=== PATIENT | female | born 1960 | race Caucasian/White ===

== ENCOUNTER → 2016-05-11 | Outpatient (REF) | payer OTHER ==
[~2016-05-11] MED LIST: ASPI1TAB PO; ATOR1TAB19 PO; ATOR1TAB21 PO; B-122500 PO; CARV12.5 PO; COUM2TAB10 PO; ERGO5000 PO; HYDR-3565 PO; HYDR1TAB97 PO; LEVO137T2 PO; LISI10TA4 PO; MOME50SP; PANT40TA2 PO; SKEL-29 PO; SUCR1TAB56 PO; VITAMIN B12
[2016-05-11 17:45] LABS: BASO # 0.1 K/mm3 (0.0-0.2); BASO % 1.2 % (0.0-1.0); EOS # 0.3 K/mm3 (0.0-0.50); EOS % 5.4 % (0.0-3.0); LARGE UNSTAINED CELL # 0.1 K/mm3 (0.0-0.4); LARGE UNSTAINED CELL % 2.4 % (0.0-4.0); LYMPH # 1.7 K/mm3 (1.5-4.5); LYMPH % 31.2 % (24.0-44.0); MEAN CORPUSCULAR HEMOGLOBIN 29.3 pg (27.0-33.0); MEAN CORPUSCULAR HGB CONC 33.3 g/dl (32.0-36.5); MONO # 0.3 K/mm3 (0.0-0.8); MONO % 6.2 % (0.0-5.0); NEUTROPHILS # 2.9 K/mm3 (1.8-7.7); NEUTROPHILS % 53.7 % (36.0-66.0); PLATELET COUNT, AUTOMATED 243 k/mm3 (150-450); RED CELL DISTRIBUTION WIDTH 13.6 % (11.5-14.5); WHITE BLOOD COUNT 5.3 K/mm3 (4.0-10.0)
[2016-05-11 19:59] LABS: ERYTHROCYTE SEDIMENTATION RATE 27 mm/hr (0-30)
== END ==
LOC: M SFHCPLAZ 15:02
PROVIDERS: ATTEND Physician Assistant Medical
DX: Z79.01 Long term (current) use of anticoagulants (principal)

== ENCOUNTER → 2016-05-28 | Outpatient (REF) | payer OTHER ==
[~2016-05-28] MED LIST changes: -ERGO5000 PO; +ERGO500014 PO; -HYDR-3565 PO; +HYDR-3713 PO; +HYDR-3719 PO; -HYDR1TAB97 PO
[2016-05-28 12:17] LABS: INR 2.34
[2016-05-28 12:36] LABS: FREE T4 1.28 NG/DL (0.76-1.46)
== END ==
LOC: M SFHCPLAZ 08:16
PROVIDERS: ATTEND Family Medicine
DX: Z86.711 Personal history of pulmonary embolism (principal); R73.01 Impaired fasting glucose

== ENCOUNTER 2016-06-12 13:14 | Emergency (ER) | payer OTHER ==
[2016-06-12] MEDS ORDERED: ALBUTEROL SULFATE 2.5 MG/0.5 ML INH NEB SOLN As Ordered ONE (13:49)
[2016-06-12] MEDS ORDERED: IPRATROPIUM 0.5MG/ALBUTEROL 2.5MG INH SOL UD 3ML (DUONEB)(J7620) As Ordered ONE (13:49)
[2016-06-12 14:27] LABS: BASO # 0.1 K/mm3 (0.0-0.2); EOS # 0.3 K/mm3 (0.0-0.50); EOS % 3.3 % (0.0-3.0); LARGE UNSTAINED CELL # 0.1 K/mm3 (0.0-0.4); LARGE UNSTAINED CELL % 1.7 % (0.0-4.0); LYMPH # 1.2 K/mm3 (1.5-4.5); LYMPH % 14.8 % (24.0-44.0); MEAN CORPUSCULAR HEMOGLOBIN 27.9 pg (27.0-33.0); MEAN CORPUSCULAR HGB CONC 32.8 g/dl (32.0-36.5); MEAN CORPUSCULAR VOLUME 85.1 fl (80.0-96.0); MONO # 0.4 K/mm3 (0.0-0.8); MONO % 5.1 % (0.0-5.0); NEUTROPHILS # 5.8 K/mm3 (1.8-7.7); PLATELET COUNT, AUTOMATED 229 k/mm3 (150-450); RED CELL DISTRIBUTION WIDTH 13.5 % (11.5-14.5); WHITE BLOOD COUNT 7.8 K/mm3 (4.0-10.0)
[2016-06-12 14:29] LABS: INR 2.25
[2016-06-12 14:55] LABS: ANION GAP 6 MEQ/L (8-16); BLOOD UREA NITROGEN 7 MG/DL (7-18); CALCIUM LEVEL 8.6 MG/DL (8.5-10.1); CARBON DIOXIDE LEVEL 31 MEQ/L (21-32); CHLORIDE LEVEL 106 MEQ/L (98-107); CREATININE FOR GFR 0.82 MG/DL (0.55-1.02); GLOMERULAR FILTRATION RATE > 60.0 (>51); GLUCOSE, FASTING 94 MG/DL (70-105); SODIUM LEVEL 143 MEQ/L (136-145)
[2016-06-12] MEDS ORDERED: methylPREDNISolone INJ 125 MG/2 ML VIAL (J2930) As Ordered ONE (15:17)
[2016-06-12] MEDS ORDERED: ISOVUE-370 76% 100ML VIAL (Q9967) As Ordered ONE (15:41)
[2016-06-12] MEDS ORDERED: AZITHROMYCIN 250 MG TAB As Ordered ONE (17:12)
[2016-06-12] MEDS ORDERED: ALBUTEROL 90 MCG/ACT 8GM HFA INHALER As Ordered ONE (17:15)
--- NOTE | 2016-06-12 17:26 | EDDOCDS ---
Physician Documentation [facility] Name: Danni Dee Age: 56 yrs Sex: Female : 1960 Arrival Date: 06/12/2016 Time: 13:14 Bed 5 Private MD: Cedrick Solares Disposition: 06/12/16 17:05 Discharged to Home/Self Care. Impression: Dyspnea, Acute bronchitis. - Condition is Stable. - Discharge Instructions: Acute Bronchitis, Shortness of Breath. - Prescriptions for Prednisone 20 mg Oral Tablet - take 3 tablet by ORAL route once daily for 5 days; 15 tablet. Zithromax Z- Joel 250 mg Oral Tablet - take 1 tablet by ORAL route as directed for 5 days Day 1- take two tablets once. Day 2, 3, 4 , 5 take one tablet once daily.; 6 tablet. Albuterol Sulfate 90 mcg/actuation Inhalation HFA Aerosol Inhaler - inhale 2 puff by INHALATION route every 4 hours As needed; 1 Inhaler. - Medication Reconciliation, Local Pharmacy Hours form. - Follow up: Cedrick Solares MD; When: 2 - 3 days. - Problem is new. - Symptoms have improved. - Notes: follow up w dr solares. your coumadin might need adjustment. return if worsening symptoms Historical: - Allergies: no known allergies; - Home Meds: 1. atorvastatin 20 mg oral tab 1 tab once daily 2. carvedilol 12.5 mg oral tab 1 tab 2 times per day 3. hydrocodone-acetaminophen 10-325 mg Oral tab 1 tab every 4 hours as needed 4. levothyroxine 137 mcg Oral cap 1 cap once daily 5. lisinopril 10 mg Oral tab 1 tab once daily 6. metaxalone 800 mg oral tab 1 tab 3 times per day 7. mometasone 50 mcg/actuation nasal spry 2 sprays once daily 8. Protonix 40 mg Oral TbEC 1 tab 2 times per day 9. sucralfate 1 gram Oral tab daily 10. Vitamin B-12 2,000 mcg Oral TbER daily 11. Vitamin D Oral 24020 unit weekly 12. warfarin 4 mg oral tab once daily 13. Pseudoephedrine Unknown Oral every 12 hours - PMHx: gastroperesis; Hypercholesterolemia; Hypertension; Hypothyroidism; PE; - PSHx: Cervical Fusion; Laminectomy. lumbar; left shoulder; Hysterectomy; Cholecystectomy; Tubal ligation; - Social history: Smoking status: Patient states former smoker of tobacco. No barriers to communication noted, The patient speaks fluent Italian, Speaks appropriately for age. - Family history: Not pertinent. - : The pt / caregiver states he / she is on anticoagulants: coumadin. Home medication list is obtained from the patient. - Exposure Risk Screening:: None identified. 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 6 in. (167.64 cm); 14:58 BP 141 / 60 (auto/); ttb 14:58 Pulse 72 MON; Resp 18 S; Pulse Ox 95% on R/A; ttb 17:15 BP 153 / 72 (auto/); ttb 17:15 Pulse 84 MON; Resp 18 S; Pulse Ox 95% ; ttb 13:15 Body Mass Index 37.12 (104.33 kg, 167.64 cm) dem1 MDM: 13:42 IV Saline Lock ordered. ml 13:42 Net Application Support Specialist/Pulse Ox/q 15 min VS ordered. ml 13:42 Rhythm Strip to chart ordered. ml 13:42 Albuterol 5 mg Nebulizer once ordered. ml 13:42 Albuterol-Ipratropium 3 ml Inhalation once ordered. ml 13:42 Call Respiratory ordered. ml 13:42 Obtain sample by nasopharyngeal swab ordered. ml 13:42 Strep Screen, Nursing ordered. ml 13:43 CBC with Diff Ordered. EDMS 13:43 MED Profile Ordered. EDMS 13:43 CIP Ordered. EDMS 13:43 Troponin Ordered. EDMS 13:43 -Influenza A&B Rapid Antigen - Nose Ordered. EDMS 13:44 Chest, 1 View Ordered. EDMS 13:44 ECG WITH READING ER PHYS+CARDIAG ordered. EDMS 13:47 Call Respiratory complete. deg 13:57 PT/INR Ordered. EDMS 13:57 PTT Ordered. EDMS 14:20 Financial registration complete. mm15 14:29 [facility] Payment Agreement was scanned into AMDL and attached to record. mm15 14:46 CBC with Diff Reviewed. ml 14:46 PT/INR Reviewed. ml 14:46 PTT Reviewed. ml 14:46 -Influenza A&B Rapid Antigen - Nose Reviewed. ml 15:07 MED Profile Reviewed. ml 15:07 CIP Reviewed. ml 15:07 Troponin Reviewed. ml 15:13 Solu-MEDROL 125 mg IVP once ordered. ml 15:14 CT Chest Angio R/O PE Ordered. EDMS 16:32 GATS (NEGATIVE STREP SCREEN) Ordered. EDMS 17:04 azithromycin 500 mg PO once ordered. ml 17:04 Ventolin Inhaler 2 puffs Inhalation once; inhaler to go ordered. ml Administered Medications: 13:53 Drug: Albuterol 5 mg [albuterol sulfate 2.5 mg/0.5 mL solution for nebulization (1 mL)] js11 Route: Nebulizer; 13:53 Drug: Albuterol-Ipratropium 3 ml [ipratropium-albuterol 0.5 mg-3 mg(2.5 mg base)/3 mL js11 nebulization soln (3 mL)] Route: Inhalation; 15:23 Drug: Solu-MEDROL 125 mg [Solu-Medrol 500 mg intravenous solution (125 mg)] Route: IVP; ttb Site: left antecubital; 17:17 Drug: azithromycin 500 mg [azithromycin 250 mg tablet (2 tabs)] Route: PO; hs1 17:20 Drug: Ventolin 2 puffs [Ventolin HFA 90 mcg/actuation aerosol inhaler (2 puffs)] Route: js11 Inhalation; Signatures: Dispatcher [employer] EDTN LenardDee Vallejo MD MD ml Nette Hensley, Respiratory Therapy Manager Unit deg Jani Lackey RN RN mlb1 Denisse Escalante RN RN hs1 Eneida Urena mm15 Kojo Ames js11 Misti Zamorano RN ttb The chart was reviewed and I authenticate all verbal orders and agree with the evaluation and treatment provided.Attachments: 14:29 [facility] Payment Agreement mm15 MTDD
--- NOTE | 2016-06-12 17:26 | EDDOCDS ---
Nurse's Notes [facility] Name: Danni Dee Age: 56 yrs Sex: Female : 1960 Arrival Date: 06/12/2016 Time: 13:14 Bed 5 Private MD: Cedrick Solares Diagnosis: Dyspnea;Acute bronchitis Presentation: 06/12 13:18 Presenting complaint: Patient states: Chest tightness and increased SOB since last mlb1 night. Adult Sepsis Screening: The patient does not have new or worsening altered mentation. Patient's respiratory rate is less than 22. Systolic blood pressure is greater than 100. Patient has a qSOFA score of 0- Negative Sepsis Screen. Suicide/Homicide risk assessment- the patient denies having any suicidal and/or homicidal ideations and does not present with any other emotional, behavioral or mental health complaints. Status: Patient is not a coordinator volunteer services or dependent. Transition of care: patient was not received from another setting of care. 13:18 Method Of Arrival: Walkin/Carried/Asstd mlb1 13:18 Acuity: JAYDE Level 2 mlb1 Triage Assessment: 13:21 General: Appears in no apparent distress, Behavior is appropriate for age, cooperative. mlb1 Pain: Location: chest Pain currently is 4 out of 10 on a pain scale. Pain: Quality of pain is described as tightness. Pt Declines HIV testing. EENT: Reports sore throat. Respiratory: Reports shortness of breath. 17:25 Respiratory: Onset: The symptoms/episode began/occurred gradually. 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 atorvastatin 20 mg oral tab 1 tab once daily 2. carvedilol 12.5 mg oral tab 1 tab 2 times per day 3. hydrocodone-acetaminophen 10-325 mg Oral tab 1 tab every 4 hours as needed 4. levothyroxine 137 mcg Oral cap 1 cap once daily 5. lisinopril 10 mg Oral tab 1 tab once daily 6. metaxalone 800 mg oral tab 1 tab 3 times per day 7. mometasone 50 mcg/actuation nasal spry 2 sprays once daily 8. Protonix 40 mg Oral TbEC 1 tab 2 times per day 9. sucralfate 1 gram Oral tab daily 10. Vitamin B-12 2,000 mcg Oral TbER daily 11. Vitamin D Oral 59471 unit weekly 12. warfarin 4 mg oral tab once daily 13. Pseudoephedrine Unknown Oral every 12 hours - PMHx: gastroperesis; Hypercholesterolemia; Hypertension; Hypothyroidism; PE; - PSHx: Cervical Fusion; Laminectomy. lumbar; left shoulder; Hysterectomy; Cholecystectomy; Tubal ligation; - Social history: Smoking status: Patient states former smoker of tobacco. No barriers to communication noted, The patient speaks fluent Latvian, Speaks appropriately for age. - Family history: Not pertinent. - : The pt / caregiver states he / she is on anticoagulants: coumadin. Home medication list is obtained from the patient. - Exposure Risk Screening:: None identified. Screenin:06 Screening information is obtained from the patient. Fall risk: No risks identified. hs1 Assistance ADL's: requires no assistance with activities of daily living. Abuse/DV Screen: The patient / caregiver reports he/she is: not in a situation that causes fear, pain or injury. Nutritional screening: No deficits noted. Advance Directives: There is no active DNR order. home support is adequate. Assessment: 14:05 General: Appears in no apparent distress, Behavior is appropriate for age, cooperative. hs1 EENT: Reports nasal congestion nasal discharge. Cardiovascular: Capillary refill < 3 seconds Rhythm is sinus rhythm No ectopy. Cardiovascular: Edema is absent. Chest pain is denied. Respiratory: Airway is patent Respiratory effort is even, unlabored, Breath sounds are diminished bilaterally. Derm: Skin is pink, warm & dry. normal. 15:15 Adult Sepsis Screening: The patient does not have new or worsening altered mentation. ttb Patient's respiratory rate is less than 22. Systolic blood pressure is greater than 100. Patient has a qSOFA score of 0- Negative Sepsis Screen. 15:23 General: Appears in no apparent distress, well nourished, well groomed, Behavior is ttb appropriate for age, cooperative, pleasant. Neurological: Level of Consciousness is awake, alert, Oriented to person, place, time, Moves all extremities. Speech is normal, Facial symmetry appears normal. Cardiovascular: Chest pain is denied. Respiratory: Airway is patent Respiratory effort is even, unlabored, Sputum is thick, green Reports cough that is productive. Derm: Skin is normal. 17:18 General: Appears in no apparent distress. Neurological: No deficits noted. Respiratory: hs1 No deficits noted. Respiratory: Airway is patent Respiratory effort is even, unlabored, Reports no respiratory complaints. Derm: Skin is pink, warm & dry. normal. Vital Signs: 13:15 BP 173 / 74; Pulse 85; Resp 20; Temp 97.9(T); Pulse Ox 100% on R/A; Weight 104.33 kg; dem1 Height 5 ft. 6 in. (167.64 cm); 14:58 BP 141 / 60 (auto/); ttb 14:58 Pulse 72 MON; Resp 18 S; Pulse Ox 95% on R/A; ttb 17:15 BP 153 / 72 (auto/); ttb 17:15 Pulse 84 MON; Resp 18 S; Pulse Ox 95% ; ttb 13:15 Body Mass Index 37.12 (104.33 kg, 167.64 cm) [facility] Vitals: 13:15 Log In Time: June 12, 2016 at 13:13. [facility] 13:15 RN notified that patient meets Red Flag criteria. [facility] 16:32 Strep Screen is obtained and tested: Negative, a GATSNEG culture is ordered in [place] [id number] and sent. ED Course: 13:15 Patient visited by Leola Cooper. dem1 13:15 Cedrick Solares MD is Private Physician. dem1 13:15 Patient moved to Waiting [facility] 13:18 Patient visited by Jani Lackey RN. mlb1 13:18 Patient moved to Pre RCE [facility] 13:18 Triage Initiated mlb1 13:24 Denisse Escalante, HELEN is Primary Nurse. mlb1 13:24 Patient moved to mlb1 13:30 Dee Morrow MD is Attending Physician. ml 13:30 Patient visited by Dee Morrow MD. ml 13:50 Inserted saline lock: 20 gauge in left antecubital area and blood collected. The hs1 patient tolerated the procedure well. 14:05 Patient visited by Denisse Escalante RN. 1 14:18 EKG done. (by ED staff). Reviewed by Dee Morrow MD. jrd 14:19 Patient visited by Yeison Vazquez PCA. jrd 14:24 The patient / caregiver is instructed regarding the plan of care and ED course. hs1 14:29 [facility] Payment Agreement was scanned into [employer] and attached to record. mm15 15:26 Patient visited by Misti Zamorano RN. ttb 16:31 Patient visited by Denisse Escalante RN. hs1 17:02 Patient visited by Denisse Escalante RN. hs1 17:05 Cedrick Solares MD is Referral Physician. ml 17:21 Discontinued IV lock intact, bleeding controlled, pressure dressing applied, No hs1 redness/swelling at site. No procedures done that require assistance. 17:26 Patient visited by Misti Zamorano RN. ttb Administered Medications: 13:53 Drug: Albuterol 5 mg [albuterol sulfate 2.5 mg/0.5 mL solution for nebulization (1 mL)] js11 Route: Nebulizer; 13:53 Drug: Albuterol-Ipratropium 3 ml [ipratropium-albuterol 0.5 mg-3 mg(2.5 mg base)/3 mL js11 nebulization soln (3 mL)] Route: Inhalation; 15:23 Drug: Solu-MEDROL 125 mg [Solu-Medrol 500 mg intravenous solution (125 mg)] Route: IVP; ttb Site: left antecubital; 17:17 Drug: azithromycin 500 mg [azithromycin 250 mg tablet (2 tabs)] Route: PO; hs1 17:20 Drug: Ventolin 2 puffs [Ventolin HFA 90 mcg/actuation aerosol inhaler (2 puffs)] Route: js11 Inhalation; RT: 13:53 Initial Med Neb Given as ordered Patient was instructed and evaluated on procedure js11 Patient tolerated procedure well without adverse effect. Oxygen is room air. Respiratory: Breath sounds are diminished bilaterally. 17:20 Initial MDI Given. Patient was instructed and evaluated on procedure Patient tolerated js11 procedure well without adverse effect Spacer used Number of puffs given: 2. Order Results: Lab Order: CBC with Diff; SPEC'M 06/12/16 14:00 Test: WHITE BLOOD COUNT; Value: 7.8; Range: 4.0-10.0; Units: K/mm3; Status: F Test: RED BLOOD COUNT; Value: 4.48; Range: 4.00-5.40; Units: M/mm3; Status: F Test: HEMOGLOBIN; Value: 12.5; Range: 12.0-16.0; Units: g/dl; Status: F Test: HEMATOCRIT; Value: 38.1; Range: 36.0-47.0; Units: %; Status: F Test: MEAN CORPUSCULAR VOLUME; Value: 85.1; Range: 80.0-96.0; Units: fl; Status: F Test: MEAN CORPUSCULAR HEMOGLOBIN; Value: 27.9; Range: 27.0-33.0; Units: pg; Status: F Test: MEAN CORPUSCULAR HGB CONC; Value: 32.8; Range: 32.0-36.5; Units: g/dl; Status: F Test: RED CELL DISTRIBUTION WIDTH; Value: 13.5; Range: 11.5-14.5; Units: %; Status: F Test: PLATELET COUNT, AUTOMATED; Value: 229; Range: 150-450; Units: k/mm3; Status: F Test: NEUTROPHILS %; Value: 74.0; Range: 36.0-66.0; Abnormal: Above high normal; Units: %; Status: F Test: LYMPH %; Value: 14.8; Range: 24.0-44.0; Abnormal: Below low normal; Units: %; Status: F Test: MONO %; Value: 5.1; Range: 0.0-5.0; Abnormal: Above high normal; Units: %; Status: F Test: EOS %; Value: 3.3; Range: 0.0-3.0; Abnormal: Above high normal; Units: %; Status: F Test: BASO %; Value: 1.0; Range: 0.0-1.0; Units: %; Status: F Test: LARGE UNSTAINED CELL %; Value: 1.7; Range: 0.0-4.0; Units: %; Status: F Test: NEUTROPHILS #; Value: 5.8; Range: 1.8-7.7; Units: K/mm3; Status: F Test: LYMPH #; Value: 1.2; Range: 1.5-4.5; Abnormal: Below low normal; Units: K/mm3; Status: F Test: MONO #; Value: 0.4; Range: 0.0-0.8; Units: K/mm3; Status: F Test: EOS #; Value: 0.3; Range: 0.0-0.50; Units: K/mm3; Status: F Test: BASO #; Value: 0.1; Range: 0.0-0.2; Units: K/mm3; Status: F Test: LARGE UNSTAINED CELL #; Value: 0.1; Range: 0.0-0.4; Units: K/mm3; Status: F Lab Order: MED Profile; SPEC' 06/12/16 14:00 Test: GLUCOSE, FASTING; Value: 94; Range: 70-105; Units: MG/DL; Status: F Test: BLOOD UREA NITROGEN; Value: 7; Range: 7-18; Units: MG/DL; Status: F Test: CREATININE FOR GFR; Value: 0.82; Range: 0.55-1.02; Units: MG/DL; Status: F Test: GLOMERULAR FILTRATION RATE; Value: > 60.0; Range: >51; Status: F Test: SODIUM LEVEL; Value: 143; Range: 136-145; Units: MEQ/L; Status: F Test: POTASSIUM SERUM; Value: 4.0; Range: 3.5-5.1; Units: MEQ/L; Status: F Test: CHLORIDE LEVEL; Value: 106; Range: 98-107; Units: MEQ/L; Status: F Test: CARBON DIOXIDE LEVEL; Value: 31; Range: 21-32; Units: MEQ/L; Status: F Test: ANION GAP; Value: 6; Range: 8-16; Abnormal: Below low normal; Units: MEQ/L; Status: F Test: CALCIUM LEVEL; Value: 8.6; Range: 8.5-10.1; Units: MG/DL; Status: F Test Note: ; Units are mL/min/1.73 m2 Chronic Kidney Disease Staging per NKF: Stage I & II GFR >=60 Normal to Mildly Decreased Stage III GFR 30-59 Moderately Decreased Stage IV GFR 15-29 Severely Decreased Stage V GFR <15 Very Little GFR Left ESRD GFR <15 on CASH PROCESSING SPECIALIST Lab Order: [facility]; SPEC06/12/16 14:00 Test: CPK CREATINE PHOSPHOKINASE; Value: 65; Range: 26-192; Units: U/L; Status: F Test: CK-MB VALUE MASS; Value: 1.5; Range: 0.0-3.6; Units: NG/ML; Status: F Test: MB/CK RELATIVE INDEX; Value: 2.30; Range: < OR =4; Status: F Test Note: ; DIAGNOSIS CRITERIA MMB ng/ml Relative Index (RI) NON-AMI < or = 5 N/A RAMOS ZONE > 5 < or = 4 AMI > 5 > 4 Lab Order: Troponin; SPEC'M 06/12/16 14:00 Test: TROPONIN I; Value: < 0.02; Range: < 0.10; Units: NG/ML; Status: F Test Note: ; Troponin I Reference Interval for Siemens Octavian LOCI: 99th Percentile= 0.00-0.045 ng/ml Risk Stratification: <= 0.10 ng/ml Decreased Risk for Adverse Clinical Events. 0.10-1.50 ng/ml Increased Risk for Adverse Clinical Events. Evaluation of additional criterion and/or repeat testing in 2-6 hours is suggested to rule out myocardial damage. >= 1.50 ng/ml Indicative of Myocardial Injury. Lab Order: -Influenza A&B Rapid Antigen - Nose; SPEC'M 06/12/16 14:00 Test: INFLUENZA A RAPID SCR by ICA; Value: INFLUENZA A RESULTS NEGATIVE; Status: F Test: INFLUENZA A RAPID SCR by ICA; Value: Comments:; Status: F Test: INFLUENZA B RAPID SCR by ICA; Value: INFLUENZA B RESULTS NEGATIVE; Status: F Test Note: ; The Influenza test is a direct rapid immunoassay for the qualitative detection of Influenza viral antigen. Cell culture (Viral Culture) testing should be considered to confirm NEGATIVE results and to assist in detecting other viruses that can provide similar clinical symptoms. Please contact the lab within 24 hours ([phone] if confirmatory testing is desired. Lab Order: PT/INR; SPEC'M 06/12/16 14:07 Test: PROTHROMBIN TIME; Value: 24.9; Range: 12.3-14.5; Abnormal: Above high normal; Units: SECONDS; Status: F Test: INR; Value: 2.25; Status: F Test Note: ; THERAPUTIC HUMAN INR VALUES INDICATIONS NORMAL RANGES PROPHYLAXIS/TREATMENT OF: VENOUS THROMBOSIS 2.0-3.0 PULMONARY EMBOLISM 2.0-3.0 PREVENTION OF SYSTEMIC EMBOLISM FROM: TISSUE HEART VALVES 2.0-3.0 ACUTE MYOCARDIAL INFARCTION 2.0-3.0 VALVULAR HEART DISEASE 2.0-3.0 ATRIAL FIBRILLATION 2.0-3.0 MECHANICAL VALVES(HIGH RISK) 2.5-3.5 RECURRENT MYOCARDIAL INFARCTION 2.5-3.5 Lab Order: PTT; JHONNY 06/12/16 14:07 Test: PARTIAL THROMBOPLASTIN TIME; Value: 38.6; Range: 26.6-37.1; Abnormal: Above high normal; Units: SECONDS; Status: F Outcome: 17:05 Discharge ordered by Provider. 17:20 Discharge Assessment: Patient awake, alert and oriented x 3. No cognitive and/or hs1 functional deficits noted. Patient verbalized understanding of disposition instructions. patient administered narcotics - no. The following High Risk Discharge criteria are identified: None. Discharged to home ambulatory. Condition: stable. Discharge instructions given to patient, Instructed on discharge instructions, follow up and referral plans. medication usage, Demonstrated understanding of instructions, medications, Pt was receptive of discharge instructions/ teaching. Prescriptions given X 2. CT Study completed. Property sent home with patient. 17:26 Patient left the ED. hs1 Signatures: Dee Morrow MD MD ml Jani Lackey RN RN mlb1 Denisse Escalante RN RN hs1 Kojo Ames js11 Leola Cooper1 Misti Zamorano, HELEN RN Eneida Daniel mm15 Yeison Vazquez PCA PCA jrsharon Corrections: (The following items were deleted from the chart) 13:23 13:18 Presenting complaint: Patient states: SOB increased since last night mlb1 mlb1 13:23 13:18 Acuity: JAYDE Level 3 mlb1 mlb1 MTDD
--- NOTE | 2016-06-13 06:32 | ECGEPIP ---
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
--- NOTE | 2016-06-13 07:55 | REP ---
AP PORTABLE CHEST: 06/12/2016. Comparison: 04/14/2016. Clinical history: Dyspnea. Lung cuellar are better inflated than on the previous study. Improvement of the bibasilar atelectatic or infiltrative change, left greater than right since the prior study. The CP angles were sharply defined. Heart has left ventricular configuration. The aorta is mildly tortuous but normal for age and unchanged. Airway intact. Dorsal column stimulator leads in the mid thoracic region. Cervical plate and screw fusion devices from discectomy anteriorly and posterior fusion screws and arch bars noted. Impression: 1. Much improved bibasilar atelectasis or infiltrates since the previous study in April 2016. No effusion or dense consolidation. 2. Left ventricular configuration of the heart without edema. Signed by Jose Maria Núñez MD 06/13/2016 06:52 P
--- NOTE | 2016-06-13 10:43 | REP ---
CT ANGIOGRAM OF THE CHEST: 06/12/2016. Comparison: Chest x-ray 06/12/2016, CT angiogram chest 04/08/2016. Clinical history: Dyspnea, increasing symptoms. History of pulmonary emboli in April. Technique: Helical scanning through the chest after a bolus of 75 mL Isovue 370 with standard pulmonary embolism CT angiogram protocol with coronal and sagittal thick slab MIP reformats. Findings: Some minor subsegmental and linear atelectatic change left lower lobe laterally and posteriorly. Minimal deep sulcus atelectatic change right lower lobe both much less than in the April study. No pleural effusion. The mid and upper lung zones are clear. No pulmonary nodules or parenchymal mass is identified. Heart is mildly enlarged. Trace pericardial effusion posteriorly. The left atrium is borderline. Left ventricle mildly enlarged. There is no hiatal hernia. The thoracic aorta shows its ascending arch and descending portion without aneurysm or dissection. The main, right and left pulmonary arteries and the mediastinum are without filling defects. The lobar segmental and subsegmental pulmonary arteries show good opacification. I see no vessel cutoff or filling defects that would clearly define recurrent thrombus. There is no peripheral opacities to suggest Hdz's hump from pulmonary infarction. No axillary or supraclavicular mass is noted. The upper abdomen shows that portion of spleen and liver included to be unremarkable. Clips from prior cholecystectomy are seen. Adrenal glands show a nodule on the right, unchanged. Upper poles of kidneys and that portion of pancreas included were unremarkable. Visualized loops of bowel intact. Bone windows show sternum, manubrium, medial clavicles, humeral heads, scapulae, ribs and thoracic spine with no compression fractures. There are degenerative changes in the mid and lower thoracic spine all stable. Impression: 1. There is mild cardiomegaly with trace pericardial effusion posteriorly. 2. Much improved basilar atelectatic changes with still some small amounts of atelectasis left lower lobe trace in the right. 3. There is no CT evidence of pulmonary thromboembolism with no filling defects or vessel cutoff compared to the well visualized thrombi seen on the previous study with similar technique. 4. No aortic aneurysm or dissection. Signed by Jose Maria Núñez MD 06/13/2016 06:59 P
--- NOTE | 2016-06-14 18:26 | EDDOCDS ---
Physician Documentation [facility] Name: Danni Dee Age: 56 yrs Sex: Female : 1960 Arrival Date: 06/12/2016 Time: 13:14 Bed 5 Private MD: Cedrick Solares Disposition: 06/12/16 17:05 Discharged to Home/Self Care. Impression: Dyspnea, Acute bronchitis. - Condition is Stable. - Discharge Instructions: Acute Bronchitis, Shortness of Breath. - Prescriptions for Prednisone 20 mg Oral Tablet - take 3 tablet by ORAL route once daily for 5 days; 15 tablet. Zithromax Z- Joel 250 mg Oral Tablet - take 1 tablet by ORAL route as directed for 5 days Day 1- take two tablets once. Day 2, 3, 4 , 5 take one tablet once daily.; 6 tablet. Albuterol Sulfate 90 mcg/actuation Inhalation HFA Aerosol Inhaler - inhale 2 puff by INHALATION route every 4 hours As needed; 1 Inhaler. - Medication Reconciliation, Local Pharmacy Hours form. - Follow up: Cedrick Solares MD; When: 2 - 3 days. - Problem is new. - Symptoms have improved. - Notes: follow up w dr solares. your coumadin might need adjustment. return if worsening symptoms Historical: - Allergies: no known allergies; - Home Meds: 1. atorvastatin 20 mg oral tab 1 tab once daily 2. carvedilol 12.5 mg oral tab 1 tab 2 times per day 3. hydrocodone-acetaminophen 10-325 mg Oral tab 1 tab every 4 hours as needed 4. levothyroxine 137 mcg Oral cap 1 cap once daily 5. lisinopril 10 mg Oral tab 1 tab once daily 6. metaxalone 800 mg oral tab 1 tab 3 times per day 7. mometasone 50 mcg/actuation nasal spry 2 sprays once daily 8. Protonix 40 mg Oral TbEC 1 tab 2 times per day 9. sucralfate 1 gram Oral tab daily 10. Vitamin B-12 2,000 mcg Oral TbER daily 11. Vitamin D Oral 29664 unit weekly 12. warfarin 4 mg oral tab once daily 13. Pseudoephedrine Unknown Oral every 12 hours - PMHx: gastroperesis; Hypercholesterolemia; Hypertension; Hypothyroidism; PE; - PSHx: Cervical Fusion; Laminectomy. lumbar; left shoulder; Hysterectomy; Cholecystectomy; Tubal ligation; - Social history: Smoking status: Patient states former smoker of tobacco. No barriers to communication noted, The patient speaks fluent Syriac, Speaks appropriately for age. - Family history: Not pertinent. - : The pt / caregiver states he / she is on anticoagulants: coumadin. Home medication list is obtained from the patient. - Exposure Risk Screening:: None identified. 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 6 in. (167.64 cm); 14:58 BP 141 / 60 (auto/); ttb 14:58 Pulse 72 MON; Resp 18 S; Pulse Ox 95% on R/A; ttb 17:15 BP 153 / 72 (auto/); ttb 17:15 Pulse 84 MON; Resp 18 S; Pulse Ox 95% ; ttb 13:15 Body Mass Index 37.12 (104.33 kg, 167.64 cm) dem1 MDM: 13:42 IV Saline Lock ordered. ml 13:42 Tire Setter/Pulse Ox/q 15 min VS ordered. ml 13:42 Rhythm Strip to chart ordered. ml 13:42 Albuterol 5 mg Nebulizer once ordered. ml 13:42 Albuterol-Ipratropium 3 ml Inhalation once ordered. ml 13:42 Call Respiratory ordered. ml 13:42 Obtain sample by nasopharyngeal swab ordered. ml 13:42 Strep Screen, Nursing ordered. ml 13:43 CBC with Diff Ordered. EDMS 13:43 MED Profile Ordered. EDMS 13:43 CIP Ordered. EDMS 13:43 Troponin Ordered. EDMS 13:43 -Influenza A&B Rapid Antigen - Nose Ordered. EDMS 13:44 Chest, 1 View Ordered. EDMS 13:44 ECG WITH READING ER PHYS+CARDIAG ordered. EDMS 13:47 Call Respiratory complete. deg 13:57 PT/INR Ordered. EDMS 13:57 PTT Ordered. EDMS 14:20 Financial registration complete. mm15 14:29 [facility] Payment Agreement was scanned into Z[employer]er and attached to record. mm15 14:46 CBC with Diff Reviewed. ml 14:46 PT/INR Reviewed. ml 14:46 PTT Reviewed. ml 14:46 -Influenza A&B Rapid Antigen - Nose Reviewed. ml 15:07 MED Profile Reviewed. ml 15:07 CIP Reviewed. ml 15:07 Troponin Reviewed. ml 15:13 Solu-MEDROL 125 mg IVP once ordered. ml 15:14 CT Chest Angio R/O PE Ordered. EDMS 16:32 GATS (NEGATIVE STREP SCREEN) Ordered. EDMS 17:04 azithromycin 500 mg PO once ordered. ml 17:04 Ventolin Inhaler 2 puffs Inhalation once; inhaler to go ordered. ml 21:41 T-Sheet-- Draft Copy was scanned into Zscaler and attached to record. klr 02 10:15 ECG/EKG was scanned into Zscaler and attached to record. gb 10:15 Trend VS was scanned into Zscaler and attached to record. gb 10:15 Radiology Report was scanned into Zscaler and attached to record. gb Administered Medications: 06/12 13:53 Drug: Albuterol 5 mg [albuterol sulfate 2.5 mg/0.5 mL solution for nebulization (1 mL)] js11 Route: Nebulizer; 13:53 Drug: Albuterol-Ipratropium 3 ml [ipratropium-albuterol 0.5 mg-3 mg(2.5 mg base)/3 mL js11 nebulization soln (3 mL)] Route: Inhalation; 15:23 Drug: Solu-MEDROL 125 mg [Solu-Medrol 500 mg intravenous solution (125 mg)] Route: IVP; ttb Site: left antecubital; 17:17 Drug: azithromycin 500 mg [azithromycin 250 mg tablet (2 tabs)] Route: PO; hs1 17:20 Drug: Ventolin 2 puffs [Ventolin HFA 90 mcg/actuation aerosol inhaler (2 puffs)] Route: js11 Inhalation; Signatures: Dispatcher Med[employer] EDMS Dee Morrow MD MD ml Murray, Denise, Herb Counselor Unit deg Tricia Dubois, Reg Reg Jani Méndez RN RN mlb1 Denisse Escalante RN RN hs1 Eneida Urena 15 Humaira [address]agena Jordan js11 Misti Zamorano RN ttb The chart was reviewed and I authenticate all verbal orders and agree with the evaluation and treatment provided.Attachments: 14:29 [facility] [place] mm15 21:41 T-Sheet-- Draft Copy klr 06/14 10:15 ECG/EKG gb Chart Complete MTDD
--- NOTE | 2016-06-14 18:27 | EDDOCDS ---
Physician Documentation [facility] Name: Danni Dee Age: 56 yrs Sex: Female : 1960 Arrival Date: 06/12/2016 Time: 13:14 Bed 5 Private MD: Cedrick Solares Disposition: 06/12/16 17:05 Discharged to Home/Self Care. Impression: Dyspnea, Acute bronchitis. - Condition is Stable. - Discharge Instructions: Acute Bronchitis, Shortness of Breath. - Prescriptions for Prednisone 20 mg Oral Tablet - take 3 tablet by ORAL route once daily for 5 days; 15 tablet. Zithromax Z- Joel 250 mg Oral Tablet - take 1 tablet by ORAL route as directed for 5 days Day 1- take two tablets once. Day 2, 3, 4 , 5 take one tablet once daily.; 6 tablet. Albuterol Sulfate 90 mcg/actuation Inhalation HFA Aerosol Inhaler - inhale 2 puff by INHALATION route every 4 hours As needed; 1 Inhaler. - Medication Reconciliation, Local Pharmacy Hours form. - Follow up: Cedrick Solares MD; When: 2 - 3 days. - Problem is new. - Symptoms have improved. - Notes: follow up w dr solares. your coumadin might need adjustment. return if worsening symptoms Historical: - Allergies: no known allergies; - Home Meds: 1. atorvastatin 20 mg oral tab 1 tab once daily 2. carvedilol 12.5 mg oral tab 1 tab 2 times per day 3. hydrocodone-acetaminophen 10-325 mg Oral tab 1 tab every 4 hours as needed 4. levothyroxine 137 mcg Oral cap 1 cap once daily 5. lisinopril 10 mg Oral tab 1 tab once daily 6. metaxalone 800 mg oral tab 1 tab 3 times per day 7. mometasone 50 mcg/actuation nasal spry 2 sprays once daily 8. Protonix 40 mg Oral TbEC 1 tab 2 times per day 9. sucralfate 1 gram Oral tab daily 10. Vitamin B-12 2,000 mcg Oral TbER daily 11. Vitamin D Oral 55827 unit weekly 12. warfarin 4 mg oral tab once daily 13. Pseudoephedrine Unknown Oral every 12 hours - PMHx: gastroperesis; Hypercholesterolemia; Hypertension; Hypothyroidism; PE; - PSHx: Cervical Fusion; Laminectomy. lumbar; left shoulder; Hysterectomy; Cholecystectomy; Tubal ligation; - Social history: Smoking status: Patient states former smoker of tobacco. No barriers to communication noted, The patient speaks fluent Polish, Speaks appropriately for age. - Family history: Not pertinent. - : The pt / caregiver states he / she is on anticoagulants: coumadin. Home medication list is obtained from the patient. - Exposure Risk Screening:: None identified. 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 6 in. (167.64 cm); 14:58 BP 141 / 60 (auto/); ttb 14:58 Pulse 72 MON; Resp 18 S; Pulse Ox 95% on R/A; ttb 17:15 BP 153 / 72 (auto/); ttb 17:15 Pulse 84 MON; Resp 18 S; Pulse Ox 95% ; ttb 13:15 Body Mass Index 37.12 (104.33 kg, 167.64 cm) dem1 MDM: 13:42 IV Saline Lock ordered. ml 13:42 Supervisor Telephone Information/Pulse Ox/q 15 min VS ordered. ml 13:42 Rhythm Strip to chart ordered. ml 13:42 Albuterol 5 mg Nebulizer once ordered. ml 13:42 Albuterol-Ipratropium 3 ml Inhalation once ordered. ml 13:42 Call Respiratory ordered. ml 13:42 Obtain sample by nasopharyngeal swab ordered. ml 13:42 Strep Screen, Nursing ordered. ml 13:43 CBC with Diff Ordered. EDMS 13:43 MED Profile Ordered. EDMS 13:43 CIP Ordered. EDMS 13:43 Troponin Ordered. EDMS 13:43 -Influenza A&B Rapid Antigen - Nose Ordered. EDMS 13:44 Chest, 1 View Ordered. EDMS 13:44 ECG WITH READING ER PHYS+CARDIAG ordered. EDMS 13:47 Call Respiratory complete. deg 13:57 PT/INR Ordered. EDMS 13:57 PTT Ordered. EDMS 14:20 Financial registration complete. mm15 14:29 [facility] Payment Agreement was scanned into [employer] and attached to record. mm15 14:46 CBC with Diff Reviewed. ml 14:46 PT/INR Reviewed. ml 14:46 PTT Reviewed. ml 14:46 -Influenza A&B Rapid Antigen - Nose Reviewed. ml 15:07 MED Profile Reviewed. ml 15:07 CIP Reviewed. ml 15:07 Troponin Reviewed. ml 15:13 Solu-MEDROL 125 mg IVP once ordered. ml 15:14 CT Chest Angio R/O PE Ordered. EDMS 16:32 GATS (NEGATIVE STREP SCREEN) Ordered. EDMS 17:04 azithromycin 500 mg PO once ordered. ml 17:04 Ventolin Inhaler 2 puffs Inhalation once; inhaler to go ordered. ml 21:41 T-Sheet-- Draft Copy was scanned into [employer] and attached to record. klr 02 10:15 ECG/EKG was scanned into [employer] and attached to record. gb 10:15 Trend VS was scanned into [employer] and attached to record. gb 10:15 Radiology Report was scanned into [employer] and attached to record. gb Administered Medications: 06/12 13:53 Drug: Albuterol 5 mg [albuterol sulfate 2.5 mg/0.5 mL solution for nebulization (1 mL)] js11 Route: Nebulizer; 13:53 Drug: Albuterol-Ipratropium 3 ml [ipratropium-albuterol 0.5 mg-3 mg(2.5 mg base)/3 mL js11 nebulization soln (3 mL)] Route: Inhalation; 15:23 Drug: Solu-MEDROL 125 mg [Solu-Medrol 500 mg intravenous solution (125 mg)] Route: IVP; ttb Site: left antecubital; 17:17 Drug: azithromycin 500 mg [azithromycin 250 mg tablet (2 tabs)] Route: PO; hs1 17:20 Drug: Ventolin 2 puffs [Ventolin HFA 90 mcg/actuation aerosol inhaler (2 puffs)] Route: js11 Inhalation; Signatures: Dispatcher [employer] EDMS Dee Morrow MD MD ml Murray, Denise, Marketing Editor Unit deg Tricia Dubois, Reg Reg Jani Méndez RN RN mlb1 Denisse Escalante RN RN hs1 Eneida Urena 15 Humair[address] Jordan js11 Misti Zamorano RN ttb The chart was reviewed and I authenticate all verbal orders and agree with the evaluation and treatment provided.Attachments: 14:29 [facility] [place] Payment Agreement mm15 21:41 T-Sheet-- Draft Copy klr 06/14 10:15 ECG/EKG gb Chart Complete MTDD
--- NOTE | 2016-06-14 18:27 | EDDOCDS ---
Nurse's Notes [facility] Name: Danni Dee Age: 56 yrs Sex: Female : 1960 Arrival Date: 06/12/2016 Time: 13:14 Bed 5 Private MD: Cedrick Solares Diagnosis: Dyspnea;Acute bronchitis Presentation: 06/12 13:18 Presenting complaint: Patient states: Chest tightness and increased SOB since last mlb1 night. Adult Sepsis Screening: The patient does not have new or worsening altered mentation. Patient's respiratory rate is less than 22. Systolic blood pressure is greater than 100. Patient has a qSOFA score of 0- Negative Sepsis Screen. Suicide/Homicide risk assessment- the patient denies having any suicidal and/or homicidal ideations and does not present with any other emotional, behavioral or mental health complaints. Status: Patient is not a chief optometry service or dependent. Transition of care: patient was not received from another setting of care. 13:18 Method Of Arrival: Walkin/Carried/Asstd mlb1 13:18 Acuity: JAYDE Level 2 mlb1 Triage Assessment: 13:21 General: Appears in no apparent distress, Behavior is appropriate for age, cooperative. mlb1 Pain: Location: chest Pain currently is 4 out of 10 on a pain scale. Pain: Quality of pain is described as tightness. Pt Declines HIV testing. EENT: Reports sore throat. Respiratory: Reports shortness of breath. 17:25 Respiratory: Onset: The symptoms/episode began/occurred gradually. hs1 FAMILY CONSUMER SCIENTIST: 17:21 LMP N/A - Hysterectomy hs1 Historical: - Allergies: no known allergies; - Home Meds: 1. atorvastatin 20 mg oral tab 1 tab once daily 2. carvedilol 12.5 mg oral tab 1 tab 2 times per day 3. hydrocodone-acetaminophen 10-325 mg Oral tab 1 tab every 4 hours as needed 4. levothyroxine 137 mcg Oral cap 1 cap once daily 5. lisinopril 10 mg Oral tab 1 tab once daily 6. metaxalone 800 mg oral tab 1 tab 3 times per day 7. mometasone 50 mcg/actuation nasal spry 2 sprays once daily 8. Protonix 40 mg Oral TbEC 1 tab 2 times per day 9. sucralfate 1 gram Oral tab daily 10. Vitamin B-12 2,000 mcg Oral TbER daily 11. Vitamin D Oral 6[address]13 unit weekly 12. warfarin 4 mg oral tab once daily 13. Pseudoephedrine Unknown Oral every 12 hours - PMHx: gastroperesis; Hypercholesterolemia; Hypertension; Hypothyroidism; PE; - PSHx: Cervical Fusion; Laminectomy. lumbar; left shoulder; Hysterectomy; Cholecystectomy; Tubal ligation; - Social history: Smoking status: Patient states former smoker of tobacco. No barriers to communication noted, The patient speaks fluent Divehi, Speaks appropriately for age. - Family history: Not pertinent. - : The pt / caregiver states he / she is on anticoagulants: coumadin. Home medication list is obtained from the patient. - Exposure Risk Screening:: None identified. Screenin:06 Screening information is obtained from the patient. Fall risk: No risks identified. hs1 Assistance ADL's: requires no assistance with activities of daily living. Abuse/DV Screen: The patient / caregiver reports he/she is: not in a situation that causes fear, pain or injury. Nutritional screening: No deficits noted. Advance Directives: There is no active DNR order. home support is adequate. Assessment: 14:05 General: Appears in no apparent distress, Behavior is appropriate for age, cooperative. hs1 EENT: Reports nasal congestion nasal discharge. Cardiovascular: Capillary refill < 3 seconds Rhythm is sinus rhythm No ectopy. Cardiovascular: Edema is absent. Chest pain is denied. Respiratory: Airway is patent Respiratory effort is even, unlabored, Breath sounds are diminished bilaterally. Derm: Skin is pink, warm & dry. normal. 15:15 Adult Sepsis Screening: The patient does not have new or worsening altered mentation. ttb Patient's respiratory rate is less than 22. Systolic blood pressure is greater than 100. Patient has a qSOFA score of 0- Negative Sepsis Screen. 15:23 General: Appears in no apparent distress, well nourished, well groomed, Behavior is ttb appropriate for age, cooperative, pleasant. Neurological: Level of Consciousness is awake, alert, Oriented to person, place, time, Moves all extremities. Speech is normal, Facial symmetry appears normal. Cardiovascular: Chest pain is denied. Respiratory: Airway is patent Respiratory effort is even, unlabored, Sputum is thick, green Reports cough that is productive. Derm: Skin is normal. 17:18 General: Appears in no apparent distress. Neurological: No deficits noted. Respiratory: hs1 No deficits noted. Respiratory: Airway is patent Respiratory effort is even, unlabored, Reports no respiratory complaints. Derm: Skin is pink, warm & dry. normal. Vital Signs: 13:15 BP 173 / 74; Pulse 85; Resp 20; Temp 97.9(T); Pulse Ox 100% on R/A; Weight 104.33 kg; dem1 Height 5 ft. 6 in. (167.64 cm); 14:58 BP 141 / 60 (auto/); ttb 14:58 Pulse 72 MON; Resp 18 S; Pulse Ox 95% on R/A; ttb 17:15 BP 153 / 72 (auto/); ttb 17:15 Pulse 84 MON; Resp 18 S; Pulse Ox 95% ; ttb 13:15 Body Mass Index 37.12 (104.33 kg, 167.64 cm) [facility] Vitals: 13:15 Log In Time: June 12, 2016 at 13:13. [facility] 13:15 RN notified that patient meets Red Flag criteria. [facility] 16:32 Strep Screen is obtained and tested: Negative, a GATSNEG culture is ordered in [place] [id number] and sent. ED Course: 13:15 Patient visited by Leola Cooper. dem1 13:15 Cedrick Solares MD is Private Physician. dem1 13:15 Patient moved to Waiting [facility] 13:18 Patient visited by Jani Lackey RN. mlb1 13:18 Patient moved to Pre RCE [facility] 13:18 Triage Initiated mlb1 13:24 Denisse Escalante, HELEN is Primary Nurse. mlb1 13:24 Patient moved to mlb1 13:30 Dee Morrow MD is Attending Physician. ml 13:30 Patient visited by Dee Morrow MD. ml 13:50 Inserted saline lock: 20 gauge in left antecubital area and blood collected. The hs1 patient tolerated the procedure well. 14:05 Patient visited by Denisse Escalante RN. 1 14:18 EKG done. (by ED staff). Reviewed by Dee Morrow MD. jrd 14:19 Patient visited by Yeison Vazquez PCA. jrd 14:24 The patient / caregiver is instructed regarding the plan of care and ED course. hs1 14:29 [facility] Payment Agreement was scanned into [employer] and attached to record. mm15 15:26 Patient visited by Misti Zamorano RN. ttb 16:31 Patient visited by Denisse Escalante, HELEN. hs1 17:02 Patient visited by Denisse Escalante RN. hs1 17:05 Cedrick Solares MD is Referral Physician. ml 17:21 Discontinued IV lock intact, bleeding controlled, pressure dressing applied, No hs1 redness/swelling at site. No procedures done that require assistance. 17:26 Patient visited by Misti Zamorano RN. ttb 21:41 T-Sheet-- Draft Copy was scanned into [employer] and attached to record. klr 06/13 06:44 EKG-ADULT Returned. EDMS 08:11 Chest, 1 View Returned. EDMS 11:10 CT Chest Angio R/O PE Returned. EDMS 06/14 10:15 ECG/EKG was scanned into [employer] and attached to record. gb 10:15 Trend VS was scanned into [employer] and attached to record. gb 10:15 Radiology Report was scanned into [employer] and attached to record. gb Administered Medications: 06/12 13:53 Drug: Albuterol 5 mg [albuterol sulfate 2.5 mg/0.5 mL solution for nebulization (1 mL)] js11 Route: Nebulizer; 13:53 Drug: Albuterol-Ipratropium 3 ml [ipratropium-albuterol 0.5 mg-3 mg(2.5 mg base)/3 mL js nebulization soln (3 mL)] Route: Inhalation; 15:23 Drug: Solu-MEDROL 125 mg [Solu-Medrol 500 mg intravenous solution (125 mg)] Route: IVP; ttb Site: left antecubital; 17:17 Drug: azithromycin 500 mg [azithromycin 250 mg tablet (2 tabs)] Route: PO; hs1 17:20 Drug: Ventolin 2 puffs [Ventolin HFA 90 mcg/actuation aerosol inhaler (2 puffs)] Route: js11 Inhalation; Attachments: 10:15 Trend VS gb RT: 06/12 13:53 Initial Med Neb Given as ordered Patient was instructed and evaluated on procedure js11 Patient tolerated procedure well without adverse effect. Oxygen is room air. Respiratory: Breath sounds are diminished bilaterally. 17:20 Initial MDI Given. Patient was instructed and evaluated on procedure Patient tolerated js11 procedure well without adverse effect Spacer used Number of puffs given: 2. Order Results: Lab Order: CBC with Diff; SPEC'M 06/12/16 14:00 Test: WHITE BLOOD COUNT; Value: 7.8; Range: 4.0-10.0; Units: K/mm3; Status: F Test: RED BLOOD COUNT; Value: 4.48; Range: 4.00-5.40; Units: M/mm3; Status: F Test: HEMOGLOBIN; Value: 12.5; Range: 12.0-16.0; Units: g/dl; Status: F Test: HEMATOCRIT; Value: 38.1; Range: 36.0-47.0; Units: %; Status: F Test: MEAN CORPUSCULAR VOLUME; Value: 85.1; Range: 80.0-96.0; Units: fl; Status: F Test: MEAN CORPUSCULAR HEMOGLOBIN; Value: 27.9; Range: 27.0-33.0; Units: pg; Status: F Test: MEAN CORPUSCULAR HGB CONC; Value: 32.8; Range: 32.0-36.5; Units: g/dl; Status: F Test: RED CELL DISTRIBUTION WIDTH; Value: 13.5; Range: 11.5-14.5; Units: %; Status: F Test: PLATELET COUNT, AUTOMATED; Value: 229; Range: 150-450; Units: k/mm3; Status: F Test: NEUTROPHILS %; Value: 74.0; Range: 36.0-66.0; Abnormal: Above high normal; Units: %; Status: F Test: LYMPH %; Value: 14.8; Range: 24.0-44.0; Abnormal: Below low normal; Units: %; Status: F Test: MONO %; Value: 5.1; Range: 0.0-5.0; Abnormal: Above high normal; Units: %; Status: F Test: EOS %; Value: 3.3; Range: 0.0-3.0; Abnormal: Above high normal; Units: %; Status: F Test: BASO %; Value: 1.0; Range: 0.0-1.0; Units: %; Status: F Test: LARGE UNSTAINED CELL %; Value: 1.7; Range: 0.0-4.0; Units: %; Status: F Test: NEUTROPHILS #; Value: 5.8; Range: 1.8-7.7; Units: K/mm3; Status: F Test: LYMPH #; Value: 1.2; Range: 1.5-4.5; Abnormal: Below low normal; Units: K/mm3; Status: F Test: MONO #; Value: 0.4; Range: 0.0-0.8; Units: K/mm3; Status: F Test: EOS #; Value: 0.3; Range: 0.0-0.50; Units: K/mm3; Status: F Test: BASO #; Value: 0.1; Range: 0.0-0.2; Units: K/mm3; Status: F Test: LARGE UNSTAINED CELL #; Value: 0.1; Range: 0.0-0.4; Units: K/mm3; Status: F Lab Order: MED Profile; [facility] 06/12/16 14:00 Test: GLUCOSE, FASTING; Value: 94; Range: 70-105; Units: MG/DL; Status: F Test: BLOOD UREA NITROGEN; Value: 7; Range: 7-18; Units: MG/DL; Status: F Test: CREATININE FOR GFR; Value: 0.82; Range: 0.55-1.02; Units: MG/DL; Status: F Test: GLOMERULAR FILTRATION RATE; Value: > 60.0; Range: >51; Status: F Test: SODIUM LEVEL; Value: 143; Range: 136-145; Units: MEQ/L; Status: F Test: POTASSIUM SERUM; Value: 4.0; Range: 3.5-5.1; Units: MEQ/L; Status: F Test: CHLORIDE LEVEL; Value: 106; Range: 98-107; Units: MEQ/L; Status: F Test: CARBON DIOXIDE LEVEL; Value: 31; Range: 21-32; Units: MEQ/L; Status: F Test: ANION GAP; Value: 6; Range: 8-16; Abnormal: Below low normal; Units: MEQ/L; Status: F Test: CALCIUM LEVEL; Value: 8.6; Range: 8.5-10.1; Units: MG/DL; Status: F Test Note: ; Units are mL/min/1.73 m2 Chronic Kidney Disease Staging per NKF: Stage I & II GFR >=60 Normal to Mildly Decreased Stage III GFR 30-59 Moderately Decreased Stage IV GFR 15-29 Severely Decreased Stage V GFR <15 Very Little GFR Left ESRD GFR <15 on B2B SALES MANAGER Lab Order: CIP; SPEC'M 06/12/16 14:00 Test: CPK CREATINE PHOSPHOKINASE; Value: 65; Range: 26-192; Units: U/L; Status: F Test: CK-MB VALUE MASS; Value: 1.5; Range: 0.0-3.6; Units: NG/ML; Status: F Test: MB/CK RELATIVE INDEX; Value: 2.30; Range: < OR =4; Status: F Test Note: ; DIAGNOSIS CRITERIA MMB ng/ml Relative Index (RI) NON-AMI < or = 5 N/A RAMOS ZONE > 5 < or = 4 AMI > 5 > 4 Lab Order: Troponin; SPEC'M 06/12/16 14:00 Test: TROPONIN I; Value: < 0.02; Range: < 0.10; Units: NG/ML; Status: F Test Note: ; Troponin I Reference Interval for Anafore LOCI: 99th Percentile= 0.00-0.045 ng/ml Risk Stratification: <= 0.10 ng/ml Decreased Risk for Adverse Clinical Events. 0.10-1.50 ng/ml Increased Risk for Adverse Clinical Events. Evaluation of additional criterion and/or repeat testing in 2-6 hours is suggested to rule out myocardial damage. >= 1.50 ng/ml Indicative of Myocardial Injury. Lab Order: -Influenza A&B Rapid Antigen - Nose; SPEC'M 06/12/16 14:00 Test: INFLUENZA A RAPID SCR by ICA; Value: INFLUENZA A RESULTS NEGATIVE; Status: F Test: INFLUENZA A RAPID SCR by ICA; Value: Comments:; Status: F Test: INFLUENZA B RAPID SCR by ICA; Value: INFLUENZA B RESULTS NEGATIVE; Status: F Test Note: ; The Influenza test is a direct rapid immunoassay for the qualitative detection of Influenza viral antigen. Cell culture (Viral Culture) testing should be considered to confirm NEGATIVE results and to assist in detecting other viruses that can provide similar clinical symptoms. Please contact the lab within 24 hours ([phone]) if confirmatory testing is desired. Lab Order: PT/INR; SPEC'M 06/12/16 14:07 Test: PROTHROMBIN TIME; Value: 24.9; Range: 12.3-14.5; Abnormal: Above high normal; Units: SECONDS; Status: F Test: INR; Value: 2.25; Status: F Test Note: ; THERAPUTIC HUMAN INR VALUES INDICATIONS NORMAL RANGES PROPHYLAXIS/TREATMENT OF: VENOUS THROMBOSIS 2.0-3.0 PULMONARY EMBOLISM 2.0-3.0 PREVENTION OF SYSTEMIC EMBOLISM FROM: TISSUE HEART VALVES 2.0-3.0 ACUTE MYOCARDIAL INFARCTION 2.0-3.0 VALVULAR HEART DISEASE 2.0-3.0 ATRIAL FIBRILLATION 2.0-3.0 MECHANICAL VALVES(HIGH RISK) 2.5-3.5 RECURRENT MYOCARDIAL INFARCTION 2.5-3.5 Lab Order: PTT; SPEC'M 06/12/16 14:07 Test: PARTIAL THROMBOPLASTIN TIME; Value: 38.6; Range: 26.6-37.1; Abnormal: Above high normal; Units: SECONDS; Status: F Lab Order: GATS (NEGATIVE STREP SCREEN); SPEC'M 06/12/16 16:31 Test: GATS CULTURE (NEG STREP SCR); Value: GATS RESULT NEGATIVE FOR STREP PYOGENES (GROUP A); Status: F Test: GATS CULTURE (NEG STREP SCR); Value: <EXTERNAL COMMENT eCWMed> FULL REPORT IN LAB NOTES (eCW and Medent).; Status: F Radiology Order: EKG-ADULT Test: EKG-ADULT REASON FOR EXAMINATION: Chest Pain; Stationary ECG Study; [facility] - ED; ; Test Date: 2016-06-12; Pat Name: DANNI DEE Department:; Room: -; Gender: F Global Professional: marissa; : 1960 Requested By: Dee Morrow; Order Number: [id number] Reading MD: Dee Morrow; Measurements; Intervals [place]att; Rate: 77 P: 14; FL: 206 QRS: -8; QRSD: 83 T: 37; QT: 366; QTc: 417; Interpretive Statements; SINUS RHYTHM; MODERATE VOLTAGE CRITERIA FOR LVH, CONSIDER NORMAL VARIANT; POSSIBLE ANTERIOR MYOCARDIAL INFARCTION, OF INDETERMINATE AGE; POSSIBLE INFERIOR WALL MYOCARDIAL INFARCTION, AGE INDETERMINATE; NONSPECIFIC ST T WAVE CHANGES; ; CW 04/09/16 -RATE DECREASED; IMPROVED ST T WAVE CHANGES; ; ; Electronically Signed On 06-13-2016 6:31:54 EST by Dee Morrow; Radiology Order: Chest, 1 View Test: Chest, 1 View REASON FOR EXAMINATION: sob; AP PORTABLE CHEST: 06/12/2016.; ; Comparison: 04/14/2016.; ; Clinical history: Dyspnea.; ; Lung cuellar are better inflated than on the previous study. Improvement of the; bibasilar atelectatic or infiltrative change, left greater than right since the; prior study. The CP angles were sharply defined. Heart has left ventricular; configuration. The aorta is mildly tortuous but normal for age and unchanged.; Airway intact. Dorsal column stimulator leads in the mid thoracic region.; Cervical plate and screw fusion devices from discectomy anteriorly and posterior; fusion screws and arch bars noted.; ; Impression:; ; 1. Much improved bibasilar atelectasis or infiltrates since the previous study; in April 2016. No effusion or dense consolidation.; ; 2. Left ventricular configuration of the heart without edema.; ; ; ; ; Signed by; Jose Maria Núñez MD 06/13/2016 06:52 P; Radiology Order: CT Chest Angio R/O PE Test: CT Chest Angio R/O PE REASON FOR EXAMINATION: sob, hx pe, increasing sx; CT ANGIOGRAM OF THE CHEST: 06/12/2016.; ; Comparison: Chest x-ray 06/12/2016, CT angiogram chest 04/08/2016.; ; Clinical history: Dyspnea, increasing symptoms. History of pulmonary emboli inApril.; ; Technique: Helical scanning through the chest after a bolus of 75 mL Isovue 370; with standard pulmonary embolism CT angiogram protocol with coronal and sagittal; thick slab MIP reformats.; ; Findings: Some minor subsegmental and linear atelectatic change left lower lobe; laterally and posteriorly. Minimal deep sulcus atelectatic change right lower; lobe both much less than in the April study. No pleural effusion. The mid; and upper lung zones are clear. No pulmonary nodules or parenchymal mass is; identified. Heart is mildly enlarged. Trace pericardial effusion posteriorly.; The left atrium is borderline. Left ventricle mildly enlarged. There is no; hiatal hernia. The thoracic aorta shows its ascending arch and descending; portion without aneurysm or dissection. The main, right and left pulmonary; arteries and the mediastinum are without filling defects. The lobar segmental; and subsegmental pulmonary arteries show good opacification. I see no vessel; cutoff or filling defects that would clearly define recurrent thrombus. There is; no peripheral opacities to suggest Hdz's hump from pulmonary infarction. No; axillary or supraclavicular mass is noted. The upper abdomen shows that portion; of spleen and liver included to be unremarkable. Clips from prior; cholecystectomy are seen. Adrenal glands show a nodule on the right, unchanged.; Upper poles of kidneys and that portion of pancreas included were unremarkable.; Visualized loops of bowel intact. Bone windows show sternum, manubrium, medial; clavicles, humeral heads, scapulae, ribs and thoracic spine with no compression; fractures. There are degenerative changes in the mid and lower thoracic spine; all stable.; ; Impression:; ; 1. There is mild cardiomegaly with trace pericardial effusion posteriorly.; ; 2. Much improved basilar atelectatic changes with still some small amounts of; atelectasis left lower lobe trace in the right.; ; 3. There is no CT evidence of pulmonary thromboembolism with no filling defects; or vessel cutoff compared to the well visualized thrombi seen on the previous; study with similar technique.; ; 4. No aortic aneurysm or dissection.; ; ; Signed by; Jose Maria Núñez MD 06/13/2016 06:59 P; Outcome: 17:05 Discharge ordered by Provider. 17:20 Discharge Assessment: Patient awake, alert and oriented x 3. No cognitive and/or hs1 functional deficits noted. Patient verbalized understanding of disposition instructions. patient administered narcotics - no. The following High Risk Discharge criteria are identified: None. Discharged to home ambulatory. Condition: stable. Discharge instructions given to patient, Instructed on discharge instructions, follow up and referral plans. medication usage, Demonstrated understanding of instructions, medications, Pt was receptive of discharge instructions/ teaching. Prescriptions given X 2. CT Study completed. Property sent home with patient. 17:26 Patient left the ED. hs1 Signatures: Dispatcher [employer] EDMS Dee Morrow MD MD ml Barnhardt, Gloria, Jani Walker RN RN mlb1 Denisse Escalante RN RN hs1 Kojo Ames js11 Leola Cooper dem1 Misti Zamorano RN RN ttb Eneida Urena mm15 Yeison Vazquez, ISDNEY SPORTS MANAGEMENT INTERN jrd Humaira Cartagena Corrections: (The following items were deleted from the chart) 13:18 Presenting complaint: Patient states: SOB increased since last night mlb1 mlb1 13:18 Acuity: JAYDE Level 3 mlb1 mlb1 Chart Complete MTDD
== END 2016-06-12 17:26 | disposition home or self-care (01) ==
LOC: M ED 13:14
DX: J20.9 Acute bronchitis, unspecified (principal); K31.84 Gastroparesis; E78.00 Pure hypercholesterolemia, unspecified; I10 Essential (primary) hypertension; E03.9 Hypothyroidism, unspecified; Z86.711 Personal history of pulmonary embolism; Z79.01 Long term (current) use of anticoagulants; Z79.899 Other long term (current) drug therapy
CPT/HCPCS: 36415; 71010; 71275; 80048; 82550; 82553; 85025; 85610; 85730; 87804; 87880; 93005; 93041; 94640; 96374; 99285; J2930; Q9967

== ENCOUNTER → 2016-06-25 | Outpatient (CLI) | payer OTHER ==
--- NOTE | 2016-06-26 14:33 | ECHO ---
DATE OF PROCEDURE: 06/25/2016 REFERRING PHYSICIAN: HUNTER Griggs PATIENT LOCATION: Outpatient REASON FOR ECHOCARDIOGRAM: Cardiomegaly. Pericardial effusion. 2D MEASUREMENTS: IVS: 1.3 cm LV: 4.4 cm LVPW: 1.3 cm LA: 4.1 cm Aorta: 3.1 cm IVC: 1.9 cm DOPPLER MEASUREMENTS: Peak velocity across the aortic valve: 1.4 m/s Peak velocity across the LVOT: 0.67 m/s Mitral E: 0.48, Mitral A: 0.66, with a ratio of 0.7 2D COMMENTS: 1. Normal left ventricular size with mildly increased left ventricular wall thickness. Left ventricular systolic function is normal estimated at 60 to 65%. 2. Mildly enlarged left atrium. Normal right atrium and right ventricle. 3. The atrial septum appeared to be normal without evidence of defect or shunt. 4. Normal aortic root. 5. Small pericardial effusion noted anteriorly, no evidence of cardiac tamponade. 6. Minimally calcified aortic valve with normal leaflet excursion. Normal mitral valve, tricuspid valve and pulmonic valve. The proximal pulmonary artery branches were not well visualized. 7. The inferior vena cava was normal in size, central venous pressure is most likely normal. DOPPLER: It detects trace aortic regurgitation. Abnormal relaxation pattern was noted across the mitral valve leaflets as well as the septal and lateral mitral valve annulus consistent with grade 1 left ventricular diastolic dysfunction. IMPRESSION: 1. Normal global left ventricular systolic function with mild concentric left ventricular hypertrophy. There are some features of left ventricular diastolic dysfunction, grade 1. 2. Aortic valve sclerosis with trace aortic regurgitation. 3. Small localized pericardial effusion noted mainly anteriorly, no evidence of cardiac tamponade. The above findings were compared to the last echocardiogram on 04/08/2016, no significant changes in the size of the pericardial effusion.
== END ==
LOC: M CARPUL 10:12
PROVIDERS: ATTEND Physician Assistant Medical
DX: J40 Bronchitis, not specified as acute or chronic (principal)

== ENCOUNTER → 2016-06-25 | Outpatient (CLI) | payer OTHER ==
--- NOTE | 2016-06-25 12:01 | REPMRS ---
Patient History The patient states she has not had a clinical breast exam in over a year. Family history of breast cancer in mother at age 50 or over and breast cancer in maternal grandmother at age 50 or over. Benign cyst aspiration of the left breast. Benign excisional biopsy of the right breast. Digital Woman Screen Mammo: June 25, 2016 - Exam #: [id number] Bilateral CC and MLO view(s) were taken. Technologist: Vi Dixon, Technologist Prior study comparison: December 07, 2013, digital woman screen mammo performed at [facility]. May 18, 2012, right breast digital mammo diagnostic unilateral, performed at [facility]. FINDINGS: There are scattered fibroglandular densities. There has been no change in the appearance of the mammogram from the prior studies. There is a mild amount of residual fibroglandular tissue which is fairly symmetric. There is an area of nodular tissue asymmetry in the upper inner quadrant right breast unchanged. There is no interval development of dominant mass, architectural distortion, or clustered microcalcification suggestive of malignancy. No significant changes when compared with prior studies. ASSESSMENT: BI-RADS/ACR category 2 mammogram. Benign finding(s). Recommendation Routine screening mammogram in 1 year (for women over age 40). This mammogram was interpreted with the aid of an FDA-approved computer-aided dectection system. A. Negative x-ray reports should not delay biopsy if a dominant or clinically suspicious mass is present. B. Four to eight percent of cancers are not identified by mammography. C. Adenosis and dense breast may obscure an underlying neoplasm. Electronically Signed By: Jose Maria Núñez MD 06/25/16 [id number]
== END ==
LOC: M WHC 09:03
PROVIDERS: ATTEND Family Medicine
DX: Z12.31 Encounter for screening mammogram for malignant neoplasm of breast (principal); Z80.3 Family history of malignant neoplasm of breast

== ENCOUNTER → 2016-07-23 | Outpatient (REF) | payer OTHER ==
[2016-07-23 14:50] LABS: BASO % 0.8 % (0.0-1.0); EOS # 0.1 K/mm3 (0.0-0.50); EOS % 1.9 % (0.0-3.0); LARGE UNSTAINED CELL # 0.2 K/mm3 (0.0-0.4); LARGE UNSTAINED CELL % 2.9 % (0.0-4.0); LYMPH % 33.9 % (24.0-44.0); MEAN CORPUSCULAR HEMOGLOBIN 27.8 pg (27.0-33.0); MEAN CORPUSCULAR HGB CONC 32.5 g/dl (32.0-36.5); MEAN CORPUSCULAR VOLUME 85.6 fl (80.0-96.0); MONO # 0.4 K/mm3 (0.0-0.8); MONO % 7.5 % (0.0-5.0); PLATELET COUNT, AUTOMATED 320 k/mm3 (150-450); RED CELL DISTRIBUTION WIDTH 14.9 % (11.5-14.5); WHITE BLOOD COUNT 5.6 K/mm3 (4.0-10.0)
[2016-07-23 15:57] LABS: PT 1:2 SUBSTITUTION 14.6 SECONDS
== END ==
LOC: M SFHCPLAZ 13:34
PROVIDERS: ATTEND Physician Assistant Medical
DX: Z86.711 Personal history of pulmonary embolism (principal); Z51.81 Encounter for therapeutic drug level monitoring

== ENCOUNTER → 2016-07-29 | Outpatient (REF) | payer OTHER ==
[2016-07-29 16:47] LABS: FREE T4 1.26 NG/DL (0.76-1.46)
[2016-07-30 08:34] LABS: CONTROL LINE MONO INT CTR LINE PRESENT
[2016-08-01 00:06] LABS: Lyme Disease IgG/IgM Antibodie <0.91 ISR (0.00-0.90); Lyme Disease IgM Ab Quantitati <0.80 index (0.00-0.79)
== END ==
LOC: M SFHCPLAZ 13:28
PROVIDERS: ATTEND Physician Assistant Medical
DX: E03.9 Hypothyroidism, unspecified (principal); R53.83 Other fatigue

== ENCOUNTER → 2016-09-15 | Outpatient (CLI) | payer OTHER ==
--- NOTE | 2016-09-17 10:09 | SLEEPCENT ---
DATE OF PROCEDURE: 09/15/2016 ORDERED BY: Ayanna George Nocturnal polysomnography was performed for evaluation of sleep apnea syndrome symptoms in this patient with a history of excessive somnolence and nonrestorative sleep. 8 hours and 24 minutes of data were reviewed. There were 417 minutes of sleep identified. Sleep latency was normal at 13 minutes Rapid eye movement (REM) latency was normal at 95 minutes. Sleep architecture showed fragmentation. Progression was reasonably well maintained. There were 4 REM periods identified. Overall sleep efficiency was 84.2%. EKG showed a sinus rhythm with an average heart rate of 75 beats per minute. Some rate variability was seen surrounding respiratory events. Rate ranged 65-85. EEG showed reasonably normal wave forms for awake and sleep. There were 160 respiratory events identified of 10 seconds in duration or greater for an apnea-hypopnea index of 23. The events were primarily obstructive more frequent but not exclusive to the supine posture, not stage related. Arousals from respiratory events occurred 12.7 times per hour. Oxygen desaturations were seen into the 70s. There was some limb activity appreciated. Limb movement arousals were borderline at 4.6. IMPRESSION: Obstructive sleep apnea syndrome, mild (G47.33). Apnea-hypopnea index 23. RECOMMENDATION: The should be encouraged to return to the sleep disorder center for pressure therapy. In the interim, alcohol and sedative avoidance should be practiced and caution exercised during the operation of motor vehicles.
== END ==
LOC: M SLEEP 19:59
PROVIDERS: ATTEND Nurse Practitioner Adult Health
DX: G47.30 Sleep apnea, unspecified (principal)

== ENCOUNTER → 2016-10-06 | Outpatient (CLI) | payer OTHER ==
--- NOTE | 2016-10-11 08:30 | SLEEPCENT ---
DATE OF PROCEDURE: 10/06/2016 REQUESTING PROVIDER: Ayanna George NP INTERPRETATION: Nocturnal polysomnography was performed for the titration of pressure therapy in this patient with obstructive sleep apnea syndrome, apnea-hypopnea index of 23. For testing, the patient was fit with a ISBX Simplus full face mask of small size, 4 cm of water pressure were applied to the circuit and the lights were extinguished. 7 hours and 50 minutes of data were reviewed. There were 364 minutes of sleep identified. Sleep latency was mildly prolonged at 16 minutes. Rapid eye movement (REM) latency was more so prolonged at 140 minutes. Sleep architecture improved with optimal pressure therapy. There were two REM periods appreciated. Overall sleep efficiency was 78.8%. The patient's electrocardiogram (EKG) showed a sinus rhythm with an average heart rate of 72 beats per minute. Electroencephalogram (EEG) showed normal waveforms for awake and sleep. Respiratory events were found fully palliated with a CPAP to a pressure of +12. There was minimal limb activity. Remaining measures of sleep physiology were normal. IMPRESSION: 1. Obstructive sleep apnea syndrome (G47.33). RECOMMENDATIONS: Nightly use of pressure therapy at 12 cm of water.
== END ==
LOC: M SLEEP 19:52
PROVIDERS: ATTEND Nurse Practitioner Adult Health
DX: G47.33 Obstructive sleep apnea (adult) (pediatric) (principal)

== ENCOUNTER → 2016-10-15 | Outpatient (REF) | payer OTHER ==
[2016-10-15 11:46] LABS: BASO # 0.1 K/mm3 (0.0-0.2); BASO % 1.4 % (0.0-1.0); EOS # 0.2 K/mm3 (0.0-0.50); EOS % 4.1 % (0.0-3.0); LARGE UNSTAINED CELL # 0.1 K/mm3 (0.0-0.4); LARGE UNSTAINED CELL % 2.2 % (0.0-4.0); LYMPH # 1.6 K/mm3 (1.5-4.5); LYMPH % 32.5 % (24.0-44.0); MEAN CORPUSCULAR HEMOGLOBIN 27.2 pg (27.0-33.0); MEAN CORPUSCULAR HGB CONC 32.7 g/dl (32.0-36.5); MEAN CORPUSCULAR VOLUME 83.3 fl (80.0-96.0); MONO # 0.3 K/mm3 (0.0-0.8); MONO % 7.3 % (0.0-5.0); NEUTROPHILS # 2.4 K/mm3 (1.8-7.7); NEUTROPHILS % 52.5 % (36.0-66.0); PLATELET COUNT, AUTOMATED 262 k/mm3 (150-450); RED CELL DISTRIBUTION WIDTH 14.8 % (11.5-14.5); WHITE BLOOD COUNT 4.5 K/mm3 (4.0-10.0)
[2016-10-15 11:47] LABS: INR 1.48
[2016-10-15 12:09] LABS: VITAMIN B12 LEVEL 1858 PG/ML (247-911)
[2016-10-15 12:11] LABS: ALKALINE PHOSPHATASE 115 U/L (45-117); ALT/SGPT 32 U/L (12-78); ANION GAP 6 MEQ/L (8-16); AST/SGOT 22 U/L (15-37); BLOOD UREA NITROGEN 9 MG/DL (7-18); CALCIUM LEVEL 8.6 MG/DL (8.5-10.1); CARBON DIOXIDE LEVEL 29 MEQ/L (21-32); CHLORIDE LEVEL 104 MEQ/L (98-107); CREATININE FOR GFR 0.91 MG/DL (0.55-1.02); GLOMERULAR FILTRATION RATE > 60.0 (>51); GLUCOSE, FASTING 101 MG/DL (70-105); POTASSIUM SERUM 3.9 MEQ/L (3.5-5.1); SODIUM LEVEL 139 MEQ/L (136-145)
[2016-10-15 12:12] LABS: ALBUMIN 3.5 GM/DL (3.2-5.2); ALBUMIN/GLOBULIN RATIO 1.06 (1.00-1.93); BILIRUBIN,TOTAL 0.7 MG/DL (0.2-1.0); FERRITIN 13 NG/ML (8-252); PERCENT SATURATION 14.7 % (13.2-37.4); TOTAL IRON BINDING CAPACITY 428 UG/DL (250-450); TOTAL PROTEIN 6.8 GM/DL (6.4-8.2)
== END ==
LOC: M SFHCPLAZ 09:10
PROVIDERS: ATTEND Family Medicine
DX: T45.515A Adverse effect of anticoagulants, initial encounter (principal); R73.01 Impaired fasting glucose

== ENCOUNTER → 2016-10-27 | Outpatient (REF) | payer OTHER ==
[~2016-10-27] MED LIST changes: -COUM2TAB10 PO; +COUM2TAB22 PO; -SKEL-29 PO; +SKEL800T97 PO
== END ==
LOC: M SFHCPLAZ 15:45
PROVIDERS: ATTEND Physician Assistant Medical
DX: L72.0 Epidermal cyst (principal)

== ENCOUNTER → 2016-11-10 | Outpatient (CLI) | payer OTHER ==
--- NOTE | 2016-11-10 17:53 | REP ---
Duplex extremity venous ultrasound: Bilateral lower extremity: History: Localized edema. Patient on blood thinners. Findings: The deep veins are anechoic and fully compressible from the groin to the popliteal fossa in the left and right lower extremity. Color flow imaging is homogeneous. Spectral Doppler interrogation demonstrates intact respiratory variation in flow and normal manual augmentation of flow. There is no evidence of deep vein thrombosis. Impression: Negative bilateral lower extremity duplex venous ultrasound. No evidence of deep vein thrombosis. Signed by Zackery Block MD 11/10/2016 06:21 P
== END ==
LOC: M RAD 16:30
PROVIDERS: ATTEND Physician Assistant Medical
DX: R60.0 Localized edema (principal)

== ENCOUNTER → 2016-11-22 | Outpatient (CLI) | payer OTHER ==
[2016-11-22 19:38] LABS: ANION GAP 7 MEQ/L (8-16); BLOOD UREA NITROGEN 10 MG/DL (7-18); CALCIUM LEVEL 8.4 MG/DL (8.5-10.1); CARBON DIOXIDE LEVEL 27 MEQ/L (21-32); CHLORIDE LEVEL 108 MEQ/L (98-107); GLOMERULAR FILTRATION RATE > 60.0 (>51); GLUCOSE, FASTING 120 MG/DL (70-105); POTASSIUM SERUM 4.1 MEQ/L (3.5-5.1); SODIUM LEVEL 142 MEQ/L (136-145)
== END ==
LOC: M WUC 17:13
PROVIDERS: ATTEND Physician Assistant Medical
DX: R60.0 Localized edema (principal)

== ENCOUNTER → 2016-12-20 | Outpatient (REF) | payer OTHER ==
[2016-12-20 11:26] LABS: BASO % 1.2 % (0.0-1.0); EOS # 0.2 K/mm3 (0.0-0.50); EOS % 3.8 % (0.0-3.0); LARGE UNSTAINED CELL # 0.1 K/mm3 (0.0-0.4); LARGE UNSTAINED CELL % 1.8 % (0.0-4.0); LYMPH # 1.6 K/mm3 (1.5-4.5); LYMPH % 33.8 % (24.0-44.0); MEAN CORPUSCULAR HEMOGLOBIN 26.6 pg (27.0-33.0); MEAN CORPUSCULAR HGB CONC 32.7 g/dl (32.0-36.5); MEAN CORPUSCULAR VOLUME 81.5 fl (80.0-96.0); MONO # 0.3 K/mm3 (0.0-0.8); MONO % 6.4 % (0.0-5.0); NEUTROPHILS # 2.5 K/mm3 (1.8-7.7); NEUTROPHILS % 53.1 % (36.0-66.0); PLATELET COUNT, AUTOMATED 256 k/mm3 (150-450); RED CELL DISTRIBUTION WIDTH 14.9 % (11.5-14.5); RETIC HEMOGLOBIN CONTENT CHr 29.2 PG (24-36); RETICULOCYTE ABSOLUTE ADVIA212 62 x10(9)/L (17-77); WHITE BLOOD COUNT 4.6 K/mm3 (4.0-10.0)
[2016-12-20 12:36] LABS: FREE T4 1.41 NG/DL (0.76-1.46); MAGNESIUM LEVEL 2.2 MG/DL (1.8-2.4); PERCENT SATURATION 13.4 % (13.2-45.0)
[2016-12-21 11:43] LABS: PRETREATED FOLATE FOR RBCFOL 6.4 NG/ML
[2016-12-22 00:06] LABS: H PYLORI SERUM QUANT IgG ABY <0.9 U/mL (0.0-0.8)
== END ==
LOC: M SFHCPLAZ 10:08
PROVIDERS: ATTEND Family Medicine
DX: I50.32 Chronic diastolic (congestive) heart failure (principal); D50.9 Iron deficiency anemia, unspecified

== ENCOUNTER → 2017-03-18 | Outpatient (CLI) | payer OTHER ==
--- NOTE | 2017-03-18 15:36 | REP ---
Clinical: Bilateral pain and swelling . Technique: Vallejo scale and color Doppler evaluation using linear high frequency transducer. Findings: Ultrasound examination of the right and left lower extremity deep venous structures from the common femoral vein to the popliteal vein demonstrates normal compressibility flow and wave patterns in response to respiration and augmentation. There is no evidence for deep venous thrombosis. Impression: No evidence for deep venous thrombosis. Signed by Chas Cuellar MD 03/18/2017 03:27 P
== END ==
LOC: M RAD 14:45
PROVIDERS: ATTEND Family Medicine
DX: R60.9 Edema, unspecified (principal)

== ENCOUNTER → 2017-05-05 | Outpatient (REF) | payer OTHER ==
[2017-05-05 12:11] LABS: BASO # 0.1 10^3/uL (0.0-0.2); BASO % 1.3 % (0.0-1.0); EOS # 0.2 10^3/uL (0.0-0.50); EOS % 3.5 % (0.0-3.0); HEMOGLOBIN 11.1 g/dl (12.0-16.0); IMMATURE GRANULOCYTE % 0.2 % (0-0); LYMPH # 1.6 10^3/uL (1.5-4.5); LYMPH % 30.3 % (24.0-44.0); MEAN CORPUSCULAR HEMOGLOBIN 26.4 pg (27.0-33.0); MEAN CORPUSCULAR HGB CONC 31.7 g/dl (32.0-36.5); MEAN CORPUSCULAR VOLUME 83.1 fl (80.0-96.0); MONO # 0.4 10^3/uL (0.0-0.8); MONO % 7.1 % (0.0-5.0); NEUTROPHILS # 3.1 10^3/uL (1.8-7.7); NEUTROPHILS % 57.6 % (36.0-66.0); PLATELET COUNT, AUTOMATED 282 10^3/uL (150-450); RED BLOOD COUNT 4.21 10^6/uL (4.00-5.40); RED CELL DISTRIBUTION WIDTH 15.9 % (11.5-14.5); WHITE BLOOD COUNT 5.4 10^3/uL (4.0-10.0)
[2017-05-05 12:21] LABS: ESTIMATED AVERAGE GLUCOSE 134 MG/DL (60-110); HEMOGLOBIN A1c 6.3 %
[2017-05-05 12:25] LABS: ALBUMIN 3.6 GM/DL (3.2-5.2); ALBUMIN/GLOBULIN RATIO 1.06 (1.00-1.93); ALKALINE PHOSPHATASE 115 U/L (45-117); ALT/SGPT 33 U/L (12-78); ANION GAP 7 MEQ/L (8-16); AST/SGOT 21 U/L (7-37); BILIRUBIN,TOTAL 0.5 MG/DL (0.2-1.0); BLOOD UREA NITROGEN 14 MG/DL (7-18); CARBON DIOXIDE LEVEL 30 MEQ/L (21-32); CHLORIDE LEVEL 106 MEQ/L (98-107); CREATININE FOR GFR 0.99 MG/DL (0.55-1.02); FERRITIN 9 NG/ML (8-252); FREE T4 1.02 NG/DL (0.76-1.46); GLOMERULAR FILTRATION RATE > 60.0 (>51); GLUCOSE, FASTING 112 MG/DL (70-105); IRON (FE) 42 UG/DL (50-170); MAGNESIUM LEVEL 2.3 MG/DL (1.8-2.4); NT-PRO BNP 64 PG/ML (<125); PERCENT SATURATION 9.2 % (13.2-45.0); POTASSIUM SERUM 3.8 MEQ/L (3.5-5.1); SODIUM LEVEL 143 MEQ/L (136-145); TOTAL IRON BINDING CAPACITY 456 UG/DL (250-450)
[2017-05-06 14:10] LABS: INSULIN LEVEL 58.6 uIU/mL (2.6-24.9)
== END ==
LOC: M SFHCPLAZ 08:23
DX: E03.9 Hypothyroidism, unspecified (principal); D50.9 Iron deficiency anemia, unspecified; R73.01 Impaired fasting glucose

== ENCOUNTER → 2017-06-06 | Outpatient (CLI) | payer OTHER ==
[~2017-06-06] MED LIST changes: -ASPI1TAB PO; -ATOR1TAB19 PO; -ATOR1TAB21 PO; -B-122500 PO; -CARV12.5 PO; -COUM2TAB22 PO; +E-Z-GAS II EFFERVESCENT PACKET (SODIUM BICARB./CITRIC ACID/SIMETHICONE) As Ordered; +E-Z-HD 98% w/w 340GM SUSP BTL As Ordered; +E-Z-PAQUE 96% w/w SUSP 176GM BTL As Ordered; -ERGO500014 PO; -HYDR-3713 PO; -HYDR-3719 PO; -LEVO137T2 PO; -LISI10TA4 PO; -MOME50SP; -PANT40TA2 PO; -SKEL800T97 PO; -SUCR1TAB56 PO; -VITAMIN B12
== END ==
LOC: M RAD 07:39
DX: D50.9 Iron deficiency anemia, unspecified (principal)
CPT/HCPCS: 74245

== ENCOUNTER → 2017-06-23 | Outpatient (CLI) | payer OTHER | LOC: M WHC 13:01 | DX: Z12.31 Encounter for screening mammogram for malignant neoplasm of breast (principal); Z80.3 Family history of malignant neoplasm of breast | CPT/HCPCS: 77067 ==

== ENCOUNTER → 2017-09-12 | Outpatient (REF) | payer OTHER ==
[2017-09-15 00:07] LABS: HPV HYBRID CAPTURE II Negative (Negative)
== END ==
LOC: M SFHCWAGY 09:08
DX: Z01.419 Encounter for gynecological examination (general) (routine) without abnormal findings (principal); Z11.51 Encounter for screening for human papillomavirus (HPV)

== ENCOUNTER → 2017-11-18 | Outpatient (REF) | payer OTHER ==
[2017-11-18 10:04] LABS: BASO # 0.1 10^3/uL (0.0-0.2); BASO % 1.2 % (0.0-1.0); EOS # 0.2 10^3/uL (0.0-0.50); EOS % 4.2 % (0.0-3.0); HEMATOCRIT 35.7 % (36.0-47.0); HEMOGLOBIN 11.3 g/dl (12.0-15.5); IMMATURE GRANULOCYTE % 0.2 % (0-3.0); LYMPH # 1.8 10^3/uL (1.5-4.5); LYMPH % 34.7 % (24.0-44.0); MEAN CORPUSCULAR HEMOGLOBIN 26.5 pg (27.0-33.0); MEAN CORPUSCULAR HGB CONC 31.7 g/dl (32.0-36.5); MEAN CORPUSCULAR VOLUME 83.8 fl (80.0-96.0); MONO # 0.4 10^3/uL (0.0-0.8); MONO % 6.9 % (0.0-5.0); NEUTROPHILS # 2.7 10^3/uL (1.8-7.7); NEUTROPHILS % 52.8 % (36.0-66.0); PLATELET COUNT, AUTOMATED 246 10^3/uL (150-450); RED BLOOD COUNT 4.26 10^6/uL (4.00-5.40); RED CELL DISTRIBUTION WIDTH 18.2 % (11.5-14.5); RETIC HEMOGLOBIN EQUIVALENT 32.5 pg (24-36); RETICULOCYTE # 44.7 10^9/L (17-77); RETICULOCYTE % 1.1 % (0.5-1.5)
[2017-11-18 10:24] LABS: ALBUMIN 3.9 GM/DL (3.2-5.2); ALBUMIN/GLOBULIN RATIO 1.15 (1.00-1.93); ALKALINE PHOSPHATASE 102 U/L (45-117); ALT/SGPT 31 U/L (12-78); ANION GAP 7 MEQ/L (8-16); AST/SGOT 22 U/L (7-37); BILIRUBIN,TOTAL 0.7 MG/DL (0.2-1.0); BLOOD UREA NITROGEN 14 MG/DL (7-18); CALCIUM LEVEL 8.8 MG/DL (8.5-10.1); CARBON DIOXIDE LEVEL 31 MEQ/L (21-32); CHLORIDE LEVEL 104 MEQ/L (98-107); CREATININE FOR GFR 1.16 MG/DL (0.55-1.30); GLOMERULAR FILTRATION RATE 51.6 (>51); GLUCOSE, FASTING 103 MG/DL (70-100); MAGNESIUM LEVEL 2.2 MG/DL (1.8-2.4); NT-PRO BNP 37 PG/ML (<125); POTASSIUM SERUM 3.4 MEQ/L (3.5-5.1); SODIUM LEVEL 142 MEQ/L (136-145); TOTAL PROTEIN 7.3 GM/DL (6.4-8.2)
[2017-11-18 10:32] LABS: VITAMIN B12 LEVEL 1103 PG/ML (247-911)
[2017-11-18 12:10] LABS: ESTIMATED AVERAGE GLUCOSE 148 MG/DL (60-110); HEMOGLOBIN A1c 6.8 %
== END ==
LOC: M SFHCPLAZ 08:30
DX: I50.32 Chronic diastolic (congestive) heart failure (principal); D50.9 Iron deficiency anemia, unspecified; R73.01 Impaired fasting glucose
CPT/HCPCS: 83525

== ENCOUNTER 2018-04-13 19:37 | Emergency (ER) | payer OTHER ==
[2018-04-13 20:55] LABS: BASO # 0.1 10^3/uL (0.0-0.2); BASO % 0.8 % (0.0-1.0); EOS # 0.2 10^3/uL (0.0-0.50); EOS % 1.9 % (0.0-3.0); HEMATOCRIT 35.2 % (36.0-47.0); HEMOGLOBIN 11.3 g/dl (12.0-15.5); IMMATURE GRANULOCYTE % 0.4 % (0-3.0); LYMPH # 1.9 10^3/uL (1.5-4.5); LYMPH % 18.2 % (24.0-44.0); MEAN CORPUSCULAR HEMOGLOBIN 25.9 pg (27.0-33.0); MEAN CORPUSCULAR HGB CONC 32.1 g/dl (32.0-36.5); MEAN CORPUSCULAR VOLUME 80.7 fl (80.0-96.0); MONO # 0.9 10^3/uL (0.0-0.8); MONO % 8.7 % (0.0-5.0); NEUTROPHILS # 7.3 10^3/uL (1.8-7.7); PLATELET COUNT, AUTOMATED 299 10^3/uL (150-450); RED BLOOD COUNT 4.36 10^6/uL (4.00-5.40); RED CELL DISTRIBUTION WIDTH 15.3 % (11.5-14.5); WHITE BLOOD COUNT 10.4 10^3/uL (4.0-10.0)
[2018-04-13 21:20] LABS: ALBUMIN 3.6 GM/DL (3.2-5.2); ALKALINE PHOSPHATASE 114 U/L (45-117); ALT/SGPT 30 U/L (12-78); ANION GAP 7 MEQ/L (8-16); AST/SGOT 21 U/L (7-37); BILIRUBIN,DIRECT 0.1 MG/DL (0.0-0.2); BILIRUBIN,TOTAL 0.5 MG/DL (0.2-1.0); BLOOD UREA NITROGEN 11 MG/DL (7-18); CALCIUM LEVEL 8.7 MG/DL (8.5-10.1); CARBON DIOXIDE LEVEL 29 MEQ/L (21-32); CHLORIDE LEVEL 104 MEQ/L (98-107); CK-MB VALUE MASS < 1.0 NG/ML (<3.6); CPK CREATINE PHOSPHOKINASE 73 U/L (26-192); GLOMERULAR FILTRATION RATE 54.7 (>51); GLUCOSE, FASTING 98 MG/DL (70-100); MB/CK RELATIVE INDEX 1.37 (< OR =4); NT-PRO BNP 65 PG/ML (<125); POTASSIUM SERUM 3.8 MEQ/L (3.5-5.1); SODIUM LEVEL 140 MEQ/L (136-145); THYROXINE (T4) 8.6 UG/DL (4.5-12.0); TOTAL PROTEIN 7.2 GM/DL (6.4-8.2); TROPONIN I < 0.02 NG/ML (< 0.10)
[2018-04-13] MEDS ORDERED: ISOVUE-370 76% 100ML VIAL (Q9967) As Ordered (21:37)
[2018-04-13] MEDS: IPRATROPIUM 0.5MG/ALBUTEROL 2.5MG INH SOL UD 3ML (DUONEB)(J7620) NEB (22:50)
[2018-04-13] MEDS: methylPREDNISolone INJ 125 MG/2 ML VIAL (J2930) IV (22:50)
[2018-04-13] MEDS: CEFDINIR 300 MG CAP (OMNICEF) PO (22:52)
== END 2018-04-13 23:29 | disposition home or self-care (01) ==
LOC: M ED 19:37
DX: J32.9 Chronic sinusitis, unspecified (principal); J41.0 Simple chronic bronchitis; G47.30 Sleep apnea, unspecified; E03.9 Hypothyroidism, unspecified; I10 Essential (primary) hypertension; K58.9 Irritable bowel syndrome, unspecified; I31.3 Pericardial effusion (noninflammatory); E11.9 Type 2 diabetes mellitus without complications; Z86.711 Personal history of pulmonary embolism; Z87.891 Personal history of nicotine dependence; Z79.899 Other long term (current) drug therapy; Z88.5 Allergy status to narcotic agent
CPT/HCPCS: Q9967

== ENCOUNTER → 2018-04-13 | Outpatient (REF) | payer OTHER ==
[2018-04-13 12:10] LABS: APPEARANCE, URINE HAZY (CLEAR); BACTERIA, URINE AUTO NEGATIVE (NEGATIVE); BILIRUBIN, URINE AUTO NEGATIVE (NEGATIVE); BLOOD, URINE BLOOD NEGATIVE (NEGATIVE); COLOR, URINE AMBER (YELLOW); GLUCOSE, URINE (UA) AUTO NEGATIVE (NEGATIVE); KETONE, URINE AUTO NEGATIVE (NEGATIVE); LEUKOCYTE ESTERASE, URINE AUTO NEGATIVE (NEGATIVE); MUCUS, URINE SMALL (NEGATIVE); NITRITE, URINE AUTO NEGATIVE (NEGATIVE); PROTEIN, URINE AUTO 1+ mg/dL (NEGATIVE); RBC, URINE AUTO 3 /HPF (0-3); SQUAMOUS EPITHELIAL CELL UR AU 3 /HPF (0-6); UROBILINOGEN, URINE AUTO 0.2 mg/dL (0.0-2.0); WBC, URINE AUTO 8 /HPF (0-3)
[2018-04-13 12:12] LABS: BASO # 0.1 10^3/uL (0.0-0.2); BASO % 1.1 % (0.0-1.0); EOS # 0.2 10^3/uL (0.0-0.50); EOS % 2.5 % (0.0-3.0); HEMOGLOBIN 11.7 g/dl (12.0-15.5); IMMATURE GRANULOCYTE % 0.1 % (0-3.0); LYMPH # 1.5 10^3/uL (1.5-4.5); LYMPH % 20.6 % (24.0-44.0); MEAN CORPUSCULAR HEMOGLOBIN 26.1 pg (27.0-33.0); MEAN CORPUSCULAR HGB CONC 31.6 g/dl (32.0-36.5); MEAN CORPUSCULAR VOLUME 82.4 fl (80.0-96.0); MONO # 0.5 10^3/uL (0.0-0.8); MONO % 6.5 % (0.0-5.0); NEUTROPHILS % 69.2 % (36.0-66.0); PLATELET COUNT, AUTOMATED 287 10^3/uL (150-450); RED BLOOD COUNT 4.49 10^6/uL (4.00-5.40); RED CELL DISTRIBUTION WIDTH 15.4 % (11.5-14.5); RETIC HEMOGLOBIN EQUIVALENT 29.9 pg (24-36); RETICULOCYTE # 49.4 10^9/L (17-77); RETICULOCYTE % 1.1 % (0.5-1.5); WHITE BLOOD COUNT 7.2 10^3/uL (4.0-10.0)
[2018-04-13 12:27] LABS: ALBUMIN 3.8 GM/DL (3.2-5.2); ALBUMIN/GLOBULIN RATIO 1.12 (1.00-1.93); ALKALINE PHOSPHATASE 113 U/L (45-117); ALT/SGPT 32 U/L (12-78); ANION GAP 7 MEQ/L (8-16); AST/SGOT 22 U/L (7-37); BILIRUBIN,TOTAL 0.6 MG/DL (0.2-1.0); BLOOD UREA NITROGEN 12 MG/DL (7-18); CALCIUM LEVEL 9.2 MG/DL (8.5-10.1); CARBON DIOXIDE LEVEL 29 MEQ/L (21-32); CHLORIDE LEVEL 104 MEQ/L (98-107); CREATININE FOR GFR 1.13 MG/DL (0.55-1.30); FREE T4 1.03 NG/DL (0.76-1.46); GLUCOSE, FASTING 109 MG/DL (70-100); MAGNESIUM LEVEL 2.2 MG/DL (1.8-2.4); POTASSIUM SERUM 4.3 MEQ/L (3.5-5.1); SODIUM LEVEL 140 MEQ/L (136-145); TOTAL PROTEIN 7.2 GM/DL (6.4-8.2)
[2018-04-13 12:35] LABS: ESTIMATED AVERAGE GLUCOSE 146 MG/DL (60-110); HEMOGLOBIN A1c 6.7 %
[2018-04-13 13:55] LABS: MALB URINE SIEMENS 38.3 MG/L; MAU/CREAT RATIO 9.2 MCG/MG (0.0-30.0)
== END ==
LOC: M SFHCPLAZ 08:19
DX: D50.9 Iron deficiency anemia, unspecified (principal); I50.32 Chronic diastolic (congestive) heart failure; E03.9 Hypothyroidism, unspecified; R73.01 Impaired fasting glucose
CPT/HCPCS: 83735

== ENCOUNTER → 2018-07-10 | Outpatient (REF) | payer OTHER ==
[~2018-07-10] MED LIST changes: +ASPI1TAB PO; +ATOR1TAB19 PO; +ATOR1TAB21 PO; +B-122500 PO; +CARV12.5 PO; +CEFD300CAP PO; +COUM2TAB22 PO; -E-Z-GAS II EFFERVESCENT PACKET (SODIUM BICARB./CITRIC ACID/SIMETHICONE) As Ordered; -E-Z-HD 98% w/w 340GM SUSP BTL As Ordered; -E-Z-PAQUE 96% w/w SUSP 176GM BTL As Ordered; +ERGO500014 PO; +FURO40TA2 PO; +HYDR-3713 PO; +HYDR-3719 PO; +LEVO137T2 PO; +LEVO175T2 PO; +LISI10TA4 PO; +MEDR4PAK PO; +MOME50SP; +PANT40TA3 PO; +SKEL800T97 PO; +SUCR1TAB56 PO; +VITA100072 PO; +VITAMIN B12
[2018-07-10 14:10] LABS: BASO # 0.1 10^3/uL (0.0-0.2); BASO % 1.7 % (0.0-1.0); EOS # 0.2 10^3/uL (0.0-0.50); EOS % 3.7 % (0.0-3.0); HEMOGLOBIN 11.5 g/dl (12.0-15.5); LYMPH % 30.3 % (24.0-44.0); MEAN CORPUSCULAR HEMOGLOBIN 25.7 pg (27.0-33.0); MEAN CORPUSCULAR HGB CONC 31.9 g/dl (32.0-36.5); MEAN CORPUSCULAR VOLUME 80.5 fl (80.0-96.0); MONO # 0.6 10^3/uL (0.0-0.8); MONO % 9.2 % (0.0-5.0); NEUTROPHILS # 3.5 10^3/uL (1.8-7.7); NEUTROPHILS % 54.8 % (36.0-66.0); PLATELET COUNT, AUTOMATED 289 10^3/uL (150-450); RED BLOOD COUNT 4.47 10^6/uL (4.00-5.40); WHITE BLOOD COUNT 6.4 10^3/uL (4.0-10.0)
[2018-07-10 14:58] LABS: ALBUMIN 3.6 GM/DL (3.2-5.2); ALT/SGPT 34 U/L (12-78); BILIRUBIN,TOTAL 0.5 MG/DL (0.2-1.0); BLOOD UREA NITROGEN 11 MG/DL (7-18); CALCIUM LEVEL 8.6 MG/DL (8.5-10.1); CARBON DIOXIDE LEVEL 28 MEQ/L (21-32); CHLORIDE LEVEL 108 MEQ/L (98-107); CREATININE FOR GFR 0.86 MG/DL (0.55-1.30); GLOMERULAR FILTRATION RATE > 60.0 (>51); GLUCOSE, FASTING 84 MG/DL (70-100); SODIUM LEVEL 144 MEQ/L (136-145); TOTAL PROTEIN 7.6 GM/DL (6.4-8.2)
== END ==
LOC: M SFHCPLAZ 12:55
PROVIDERS: ATTEND Physician Assistant Medical
DX: R05 Cough (principal)

== ENCOUNTER → 2018-07-18 | Outpatient (CLI) | payer OTHER ==
[~2018-07-18] MED LIST changes: +ISOVUE-370 76% 125ML VIAL (Q9967 PER ML) As Ordered ONE
--- NOTE | 2018-07-19 08:02 | REP ---
Clinical: Cough. Technique: Axial contrast enhanced images from the thoracic inlet to the upper abdomen with coronal and sagittal re-formations using 100 ml Isovue 370 intravenous contrast material. Comparison: 04/13/2018. Findings: The bilateral lung cuellar are relatively well aerated, symmetric and essentially clear. No consolidation, effusion or pneumothorax. Subtle small parenchymal findings in the left base remains stable/improved. Tracheobronchial tree is patent. No significant adenopathy. Mediastinum demonstrates atherosclerotic changes to the thoracic aorta and coronary arteries without aortic aneurysm or dissection. Mild cardiomegaly remains essentially stable. No significant pericardial effusion. Thyroid gland is normal. Surrounding musculoskeletal structures demonstrate degenerative changes without focal osseous abnormality. Limited upper abdomen demonstrates evidence for prior cholecystectomy and 1.1 cm right adrenal adenoma along with hepatosteatosis. Impression: 1. No acute mediastinal or pleuroparenchymal process. 2. Mild cardiomegaly and atherosclerotic changes to the thoracic aorta and coronary arteries. 3. Small right adrenal adenoma and hepatosteatosis. Electronically Signed by Chas Cuellar MD 07/19/2018 07:54 A
== END ==
LOC: M RAD 09:01
PROVIDERS: ATTEND Physician Assistant Medical
DX: R05 Cough (principal); I51.7 Cardiomegaly; D35.00 Benign neoplasm of unspecified adrenal gland; K76.0 Fatty (change of) liver, not elsewhere classified
CPT/HCPCS: 71260; Q9967

== ENCOUNTER → 2018-09-01 | Outpatient (REF) | payer OTHER ==
[~2018-09-01] MED LIST changes: -ASPI1TAB PO; +ASPI81TA26 PO; -ERGO500014 PO; -ISOVUE-370 76% 125ML VIAL (Q9967 PER ML) As Ordered ONE; +VITA100018 PO; -VITA100072 PO; +VITA500045 PO
[2018-09-01 12:17] LABS: BASO # 0.1 10^3/uL (0.0-0.2); BASO % 1.5 % (0.0-1.0); EOS # 0.2 10^3/uL (0.0-0.50); EOS % 3.8 % (0.0-3.0); HEMATOCRIT 35.4 % (36.0-47.0); HEMOGLOBIN 10.6 g/dl (12.0-15.5); LYMPH # 1.5 10^3/uL (1.5-4.5); LYMPH % 30.8 % (24.0-44.0); MEAN CORPUSCULAR HEMOGLOBIN 24.3 pg (27.0-33.0); MEAN CORPUSCULAR HGB CONC 29.9 g/dl (32.0-36.5); MEAN CORPUSCULAR VOLUME 81.2 fl (80.0-96.0); MONO # 0.4 10^3/uL (0.0-0.8); MONO % 8.3 % (0.0-5.0); NEUTROPHILS # 2.7 10^3/uL (1.8-7.7); NEUTROPHILS % 55.4 % (36.0-66.0); PLATELET COUNT, AUTOMATED 275 10^3/uL (150-450); RED BLOOD COUNT 4.36 10^6/uL (4.00-5.40); WHITE BLOOD COUNT 4.8 10^3/uL (4.0-10.0)
[2018-09-01 12:37] LABS: HEMOGLOBIN A1c 6.8 %
[2018-09-01 13:12] LABS: ALBUMIN 3.4 GM/DL (3.2-5.2); ALT/SGPT 37 U/L (12-78); BILIRUBIN,TOTAL 0.6 MG/DL (0.2-1.0); BLOOD UREA NITROGEN 11 MG/DL (7-18); CALCIUM LEVEL 8.9 MG/DL (8.5-10.1); CARBON DIOXIDE LEVEL 27 MEQ/L (21-32); CHLORIDE LEVEL 106 MEQ/L (98-107); CREATININE FOR GFR 0.84 MG/DL (0.55-1.30); FREE T4 1.18 NG/DL (0.76-1.46); GLOMERULAR FILTRATION RATE > 60.0 (>51); GLUCOSE, FASTING 100 MG/DL (70-100); MAGNESIUM LEVEL 2.3 MG/DL (1.8-2.4); POTASSIUM SERUM 4.2 MEQ/L (3.5-5.1); SODIUM LEVEL 140 MEQ/L (136-145)
== END ==
LOC: M SFHCPLAZ 08:48
PROVIDERS: ATTEND Physician Assistant Medical
DX: E53.8 Deficiency of other specified B group vitamins (principal); I50.32 Chronic diastolic (congestive) heart failure; E03.9 Hypothyroidism, unspecified; R73.01 Impaired fasting glucose

== ENCOUNTER → 2019-02-15 | Outpatient (REF) | payer OTHER ==
[2019-02-15 10:25] LABS: BASO # 0.1 10^3/uL (0.0-0.2); BASO % 1.4 % (0.0-1.0); EOS # 0.2 10^3/uL (0.0-0.5); EOS % 3.3 % (0.0-3.0); HEMATOCRIT 36.4 % (36.0-47.0); HEMOGLOBIN 11.4 g/dl (12.0-15.5); LYMPH # 1.6 10^3/uL (1.5-5.0); LYMPH % 33.4 % (24.0-44.0); MEAN CORPUSCULAR HGB CONC 31.3 g/dl (32.0-36.5); MEAN CORPUSCULAR VOLUME 79.8 fl (80.0-96.0); MONO # 0.4 10^3/uL (0.0-0.8); MONO % 7.1 % (0.0-5.0); NEUTROPHILS # 2.7 10^3/uL (1.5-8.5); NEUTROPHILS % 54.6 % (36.0-66.0); PLATELET COUNT, AUTOMATED 225 10^3/uL (150-450); RED BLOOD COUNT 4.56 10^6/uL (4.00-5.40); WHITE BLOOD COUNT 4.9 10^3/uL (4.0-10.0)
[2019-02-15 10:47] LABS: INR 1.08; PROTHROMBIN TIME 13.7 SECONDS (11.8-14.0)
[2019-02-15 10:48] LABS: PARTIAL THROMBOPLASTIN TIME 28.3 SECONDS (25.0-38.4)
[2019-02-15 10:53] LABS: CHOLESTEROL RISK RATIO 2.918 (<5)
[2019-02-15 10:57] LABS: HEMOGLOBIN A1c 6.9 %
== END ==
LOC: M SFHCPLAZ 08:27
PROVIDERS: ATTEND Family Medicine
DX: I10 Essential (primary) hypertension (principal); E03.9 Hypothyroidism, unspecified; E78.5 Hyperlipidemia, unspecified

== ENCOUNTER → 2019-03-01 | Outpatient (CLI) | payer OTHER ==
--- NOTE | 2019-03-01 09:49 | REPMRS ---
Patient History The patient states she has not had a clinical breast exam in over a year. Family history of breast cancer at age 50 or over in maternal grandmother, breast cancer at age 50 or over in mother. Benign cyst aspiration of the left breast. Benign excisional biopsy of the right breast. 3D TOMOSYNTHESIS WAS PERFORMED. Digital Woman Screen Mammo: March 01, 2019 - Exam #: [id number] Bilateral CC and MLO view(s) were taken. Technologist: Divya Wheeler, Technologist Prior study comparison: June 23, 2017, digital woman screen mammo performed at [facility]. June 25, 2016, digital woman screen mammo performed at [facility]. FINDINGS: There are scattered fibroglandular densities. There is a fairly symmetric fibroglandular pattern in both breasts. There has been no interval development of masses, areas of architectural distortion or clusters of microcalcifications typical of malignancy. Assessment: BI-RADS/ACR category 2 mammogram. Benign Findings. Recommendation Routine screening mammogram of both breasts in 1 year (for women over age 40). This mammogram was interpreted with the aid of an FDA-approved computer-aided dectection system. THE LIFETIME RISK OF BREAST CANCER IS 22.5%, THEREFORE SUPPLEMENTAL SCREENING MRI OF THE BREASTS IS RECOMMENDED IN 6 MONTHS. Electronically Signed By: Vineet Vallejo MD 03/01/19 0949
== END ==
LOC: M WHC 08:02
PROVIDERS: ATTEND Family Medicine
DX: Z12.31 Encounter for screening mammogram for malignant neoplasm of breast (principal); Z80.3 Family history of malignant neoplasm of breast

== ENCOUNTER → 2019-11-18 | Outpatient (CLI) | payer OTHER ==
[~2019-11-18] MED LIST changes: +CYAN2500 SL; +ELIQ5TAB PO; +EPID100S PO; +FERR325T3 PO; +K-TA10TA2 PO; +PANT40TA29 PO; -PANT40TA3 PO; +REGL5TAB2 PO; +VICT18IN SC; +VITA50005 PO
== END ==
LOC: M LABSMTC 08:57
PROVIDERS: ATTEND Anesthesiology
DX: Z03.818 Encounter for observation for suspected exposure to other biological agents ruled out (principal); Z11.59 Encounter for screening for other viral diseases

== ENCOUNTER 2020-01-01 09:40 | Emergency (ER) | payer OTHER ==
[~2020-01-01] VITALS: Ht 167.6 cm; Wt 114.1 kg
[~2020-01-01 09:40] MED LIST changes: -ELIQ5TAB PO
[2020-01-01] MEDS ORDERED: VICT18IN SC (10:40)
[2020-01-01] MEDS ORDERED: HYDR-3713 PO (10:40)
--- NOTE | 2020-01-01 10:48 | REPVR ---
PROCEDURE INFORMATION: Exam: US Duplex Left Lower Extremity Veins, Limited Exam date and time: 01/01/2020 10:37 AM Age: 59 years old Clinical indication: Pain; Leg, lower; Left; Additional info: Left calf pain, RO dvt TECHNIQUE: Imaging protocol: Real-time Duplex ultrasound of the Left Lower Extremity with 2-D yanes scale, color Doppler flow and spectral waveform analysis with image documentation. Limited exam focused on the left lower extremity veins. COMPARISON: US Duplex, Ext LOWER veins, bilat BILATERAL 03/18/2017 3:05 PM FINDINGS: Left deep veins: Unremarkable. The common femoral, femoral, proximal profunda femoral and popliteal veins are patent without thrombus. Normal Doppler waveforms. Normal compressibility and/or augmentation response. Left superficial veins: Unremarkable. Saphenofemoral junction is patent without thrombus. Soft tissues: Unremarkable. IMPRESSION: No evidence of deep vein thrombosis. Electronically signed by: Chas Merrill On 01/01/2020 10:48:36 AM
[2020-01-01 11:50] LABS: BASO # 0.1 10^3/uL (0.0-0.2); BASO % 1.1 % (0.0-1.0); EOS # 0.2 10^3/uL (0.0-0.5); HEMATOCRIT 37.8 % (36.0-47.0); HEMOGLOBIN 12.2 g/dl (12.0-15.5); LYMPH # 1.7 10^3/uL (1.5-5.0); LYMPH % 32.1 % (24.0-44.0); MEAN CORPUSCULAR HEMOGLOBIN 28.4 pg (27.0-33.0); MEAN CORPUSCULAR HGB CONC 32.3 g/dl (32.0-36.5); MEAN CORPUSCULAR VOLUME 88.1 fl (80.0-96.0); MONO # 0.4 10^3/uL (0.0-0.8); MONO % 7.9 % (0.0-5.0); NEUTROPHILS % 55.7 % (36.0-66.0); PLATELET COUNT, AUTOMATED 247 10^3/uL (150-450); RED BLOOD COUNT 4.29 10^6/uL (4.00-5.40); WHITE BLOOD COUNT 5.3 10^3/uL (4.0-10.0)
[2020-01-01 12:04] LABS: INR 1.04; PROTHROMBIN TIME 13.8 SECONDS (11.8-14.0)
[2020-01-01 12:05] LABS: PARTIAL THROMBOPLASTIN TIME 25.6 SECONDS (25.0-38.4)
[2020-01-01 12:07] LABS: D-DIMER QUANT 309.54 ng/ml (<500)
[2020-01-01 12:23] LABS: BLOOD UREA NITROGEN 11 MG/DL (7-18); CALCIUM LEVEL 9.2 MG/DL (8.5-10.1); CARBON DIOXIDE LEVEL 31 MEQ/L (21-32); CHLORIDE LEVEL 107 MEQ/L (98-107); CREATININE FOR GFR 0.79 MG/DL (0.55-1.30); GLOMERULAR FILTRATION RATE > 60.0 (>51); GLUCOSE, FASTING 102 MG/DL (70-100); POTASSIUM SERUM 3.6 MEQ/L (3.5-5.1); SODIUM LEVEL 142 MEQ/L (136-145)
[2020-01-01] MEDS ORDERED: ELIQ5TAB PO (12:35)
[2020-01-01] MEDS ORDERED: APIXABAN 5 MG TAB (ELIQUIS) PO ONE (12:45)
[2020-01-01 13:11] VITALS: BP 131/73
== END 2020-01-01 13:16 | disposition home or self-care (01) ==
LOC: M ED 09:40
DX: M79.662 Pain in left lower leg (principal); E11.9 Type 2 diabetes mellitus without complications; I10 Essential (primary) hypertension; E78.9 Disorder of lipoprotein metabolism, unspecified; E07.9 Disorder of thyroid, unspecified; Z79.899 Other long term (current) drug therapy; Z79.01 Long term (current) use of anticoagulants; Z88.5 Allergy status to narcotic agent; Z88.8 Allergy status to other drugs, medicaments and biological substances; Z87.891 Personal history of nicotine dependence

== ENCOUNTER → 2020-01-08 | Outpatient (REF) | payer OTHER ==
[~2020-01-08] MED LIST changes: +ELIQ5TAB PO
[2020-01-08 12:17] LABS: INR 1.5; PROTHROMBIN TIME 18.4 SECONDS (11.8-14.0)
[2020-01-08 12:20] LABS: D-DIMER QUANT 274.4 ng/ml (<500)
== END ==
LOC: M SFHCPLAZ 10:09
PROVIDERS: ATTEND Nurse Practitioner Family
DX: M79.662 Pain in left lower leg (principal); Z79.01 Long term (current) use of anticoagulants

== ENCOUNTER → 2020-01-10 | Outpatient (CLI) | payer OTHER ==
--- NOTE | 2020-02-01 10:17 | REP ---
LEFT LOWER EXTREMITY DOPPLER ULTRASOUND: 01/10/20 CLINICAL: Left lower extremity and calf pain x1 weeks. TECHNIQUE: Real time yanes scale and color Doppler evaluation using linear high frequency transducer. FINDINGS: Ultrasound examination of the left lower extremity deep venous structures from the common femoral vein to the popliteal vein demonstrates normal compressibility, flow, and wave patterns in response to respirations and augmentation. There is no evidence for deep venous thrombosis. IMPRESSION: Negative examination. No evidence for deep venous thrombosis. MTDD
== END ==
LOC: M RAD 12:36
PROVIDERS: ATTEND Emergency Medicine
DX: M79.89 Other specified soft tissue disorders (principal); M79.662 Pain in left lower leg

== ENCOUNTER → 2020-03-01 | Outpatient (CLI) | payer OTHER ==
--- NOTE | 2020-03-01 14:24 | REP ---
INDICATION: TIBIA/FIBULA PAIN. COMPARISON: None. TECHNIQUE: Four views. FINDINGS: Four views of the left tib fib demonstrate normal bones, joints, and soft tissues. No fracture or subluxation is seen. No opaque foreign body noted. IMPRESSION: Negative left tib fib series. <Electronically signed by Ricki Block > 03/01/20 [id number]
== END ==
LOC: M WUC 13:52
PROVIDERS: ATTEND Family Medicine
DX: M89.8X6 Other specified disorders of bone, lower leg (principal)

== ENCOUNTER → 2020-03-07 | Outpatient (CLI) | payer OTHER ==
--- NOTE | 2020-03-07 16:21 | REP ---
INDICATION: NECK MASS. COMPARISON: None. TECHNIQUE: Real-time sonographic evaluation of the posterior left neck soft tissues performed. This is at the site of a palpable lump. FINDINGS: No discrete cystic or solid mass is seen. Reportedly the patient has had surgery in this area previously. No sonographic abnormality is seen of these soft tissues. IMPRESSION: Negative ultrasound of soft tissues of posterior left neck at the site of the reported palpable abnormality. Further evaluation may be made with MRI if clinically indicated. <Electronically signed by Vineet Vallejo > 03/07/20 [id number]
== END ==
LOC: M RAD 12:55
PROVIDERS: ATTEND Family Medicine
DX: R22.1 Localized swelling, mass and lump, neck (principal)

== ENCOUNTER → 2020-03-13 | Outpatient (CLI) | payer OTHER ==
[~2020-03-13] MED LIST changes: +ISOVUE-370 76% 100ML VIAL As Ordered ONE
--- NOTE | 2020-03-14 05:55 | REP ---
INDICATION: PAIN LT TIBIA. COMPARISON: None. TECHNIQUE: Axial contrast-enhanced images through the left lower extremity from the distal femoral metaphysis to the ankle with coronal and sagittal reformations. 100 cc Isovue 370 intravenous contrast material administered without complication. This CT examination was performed using the following dose reduction techniques: Automated exposure control, adjustment of mA and/or kv according to the patient's size, and use of iterative reconstruction technique. FINDINGS: The osseous structures appear intact and essentially age-appropriate with mild age-related degenerative changes suggested at the knee and ankle joint. The long bones including tibia and fibula demonstrate normal cortex and medullary space. No periosteal reaction or obvious abnormalities appreciated. The patella is unremarkable. No evidence for effusion. Surrounding musculature and subcutaneous soft tissues as well as visualized vasculature appear normal. IMPRESSION: Normal age-appropriate contrast enhanced CT of the left tibia/fibula and associated joint spaces. <Electronically signed by Chas Cuellar > 03/14/20 0575
== END ==
LOC: M RAD 14:52
PROVIDERS: ATTEND Family Medicine
DX: M89.8X6 Other specified disorders of bone, lower leg (principal)
CPT/HCPCS: 73701; Q9967

== ENCOUNTER 2020-06-25 10:45 | Emergency (ER) | payer OTHER ==
[~2020-06-25] VITALS: Ht 167.6 cm; Wt 111.7 kg
[~2020-06-25 10:45] MED LIST changes: -ISOVUE-370 76% 100ML VIAL As Ordered ONE; +LISI10TA22 PO; -LISI10TA4 PO
--- OUTSIDE RECORDS SUMMARY | 2020-06-25 10:54 | CCD ---
Author Author [facility] Organization [facility] Address Unknown Phone Unavailable Care Team Providers Care Classification And Treatment Director Name Role Phone Cedrick Solares Unavailable PROBLEMS Type Condition ICD9-CM Code [id number] Code Onset Dates Condition S tatus SNOMED Code Notes Problem DJD (degenerative joint disease), lumbar M47.816 Active 773937235 Problem Hyperlipidemia E78.5 Active 81624269 Problem Hypertension I10 Active 94374699 Problem Hypothyroid E03.9 Active 00591268 Problem Hx of hysterectomy for benign disease Z90.710 Ac tive 302898799 Problem Iron deficiency anemia, unspecified iron deficiency an emia type D50.9 Active 58885491 Problem Irritable bowel syndrome with diarrhea K58.0 A ctive 880713552 Problem Gastroparesis K31.84 Active 971995388 Problem History of pulmonary embolus (PE) Z86.711 Active 628437389 Problem 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 Active 946034652 Problem CORTES (obstructive sleep apnea) G47.33 Active 78 077462 Problem Non morbid obesity due to excess calories E66.09 Active 330842879 Problem Chronic diastolic congestive heart failure I50.32 Active 695342599 Problem B12 deficiency E53.8 Active 578857798 Problem Diabetes mellitus type 2, noninsulin dependent E11 .9 Active 992735068 Problem Cervical cancer screening Z12.4 Active 269195 001 Problem Vitamin D deficiency E55.9 Active 81101638 Problem Nicotine addiction F17.200 Active 251133540 Problem H/O adenomatous polyp of colon Z86.010 Active 4 69893303 Problem Mild intermittent asthma without complication J45. 20 Active 627949681 Problem GERD (gastroesophageal reflux disease) K21.9 A ctive 277230847 Problem Breast cancer screening Z12.39 Active 73330169 6 Problem Non-seasonal allergic rhinitis, unspecified trigger J30.89 Active 92869255 Problem Venous insufficiency of both lower extremities I87 .2 Active 087392056 Problem Mild intermittent asthma with acute exacerbation J 45.21 Active 384958746 Problem Borderline osteopenia M85.80 Active 341126406 ALLERGIES Allergen (clinical drug ingredient) Drug/Non Drug Allergy do cumented on EMR Reaction Allergy Type Onset Date Status codeine Codeine Sulfate([facility] Code:[address]-96) reflux Drug Al lergy Active varenicline Chantix([facility] Code:[address]-99) Nausea Drug Allergy Active lisinopril Lisinopril([facility] Code:[address]-35) cough Drug Allergy Active ENCOUNTERS from 1962 to 2020-04-21 Encounter Location Date Provider Diagnosis [address] [address] Apr, 020 Cedrick Solares GERD (gastroesophageal reflux disease) K21.9 ; Non-seasonal allergic rhinitis, unspecified trigger J30.89 ; Vitamin D deficiency E55.9 ; Hypertension I10 ; Hypothyroid E03.9 ; Hyperlipidemia E78.5 ; Chronic diastolic congestive heart failure I50.32 and DJD (degenerative joint disease), lumbar M47.816 IMMUNIZATIONS Vaccine Route Administration Date Status Influenza (Pharmacy Given) IM Intramuscular Feb 15, 2018 Admi nistered Influenza (18 yrs & older) Flublok IM Intramuscular Feb 29, 2020 Administered Influenza (18 yrs & older) Flublok IM Intramuscular Feb 22, 2019 Administered Depo-Medrol 80mg (Methylprednisolone Acetate) IM Intramuscular J an 2019 Administered Depo-Medrol 40mg (Methylpredisolone Acetate) IM Intramuscular Ja n 2019 Administered Influenza (6mo & up) Fluzone IM Intramuscular Feb 03, 2017 Ad ministered Influenza (6mo & up) Fluzone Unknown Jan 04, 2014 Adm inistered SOCIAL HISTORY Tobacco Use: Social History Observation Description Date Details (start date - stop date) Former Smoker Sex Assigned At : Social History Observation Description Sex Assigned At Unknown Education: Question Answer Notes Level of Education: Finished [employer] Language: Question Answer Notes Languages spoken: Kittitian Adventist: Question Answer Notes Adventist 05 Sikh Sexual Hx: Question Answer Notes Had sex in the last 12 months (vaginal, oral, or anal)? Yes LMP: hyster Have you ever had an STD? No with Men only Use protection? No Alcohol Screening: Question Answer Notes Did you have a drink containing alcohol in the past year? No Points 0 Interpretation Negative BMI Care Goal Follow-Up Question Answer Notes Above Normal BMI Follow-Up Dietary needs education, Weight m onitoring Tobacco Use: Question Answer Notes Are you a: former smoker How long has it been since you last smoked? 1-5 years quit 04/08/17 REASON FOR REFERRAL No Information VITAL SIGNS No information MEDICATIONS Medication SIG (Take, Route, Frequency, Duration) Notes Start Da te End Date Status Pantoprazole Sodium 40 MG 1 tablet Orally bid for 90 day(s) Active Blood Glucose Test - as directed subcutaneously D X: E11.9 once a day for 30 days Mar, Active Potassium Chloride ER 10 MEQ 1 capsule with food Orall y Once a day for 90 day(s) Active Glucometer as directed DX: E11.9 Daily for 99 days Mar, Active Carvedilol 12.5 MG 1 tab Orally bid for 90 day(s) Active Hydrocodone-Acetaminophen 5-325 MG 1 tablet as needed Orally TID, MDD 3 for 30 day(s) Apr, Active Ergocalciferol 15720 UNIT 1 capsule Orally weekly for 90 day(s) Active May Have as needed Active Levothyroxine Sodium 175 MCG 1 tablet on an empty stom ach in the morning Orally Once a day for 90 day(s) Active BD Ultra-fine Pen Destin 32G 4mm as directed DX :E 11.9 Daily f or 90 day(s) Apr, Active Ferrous Sulfate 325 (65 Fe) MG 1 tablet Orally Once a day for 90 day( s) Active Cyanocobalamin 500 MCG 1 tablet Orally Once a day for 90 day(s) Active Nasonex 50 MCG/ACT 2 sprays in each nostril Elliott ally every morning as needed for 90 day(s) Active Carafate 1 GM 1 tablet on an empty stomach Orally Twice a day for 9 0 day(s) Active Stockings Bilateral below the knee compression stockings 15-20 mmHg daily Active Furosemide 40 MG 1 1/2 tablet Orally Once a day for 90 day(s) Active Lancets - as directed subcutaneously DX: E11.9 once a day for 30 Days Mar, Active Skelaxin 800 MG 1 tablet Orally Three times a day for 90 day(s) Active Liraglutide 18 MG/3ML 0.6 Subcutaneous QOD for 90 day(s) Active Atorvastatin Calcium 20 MG 1 tablet Orally Once a day for 90 day(s) Active CPAP mask and tubing DX: G47.33 at bedtime for 99 days Mar, Active Proventil HFA 108 (90 Base) MCG/ACT 2 puffs as needed Inhalation every 6 hrs prn cough for 30 Days May, Active Reglan 5 MG 1 tab Orally every morning for 90 day(s) Active Voltaren 1 % 4 gm apply to right wrist Tr ansdermal 4 times a day as needed for 90 day(s) Active PROCEDURES No Information RESULTS No Results REASON FOR VISIT No Information MEDICAL (GENERAL) HISTORY Type Description Date Medical History cervical DJD s/p C3-C7 fusio n and posterior cervical decompression by Dr. Sethi December 02, 2009 Medical History hypothyroidism Medical History hypertension, essential-06/21 16 TTE mild concentric LVH, grade 1 diastolic dysfunction, small localized pericardial effusion-Sam Medical History IFG Medical History obesity Medical History hyperlipidemia 2B Medical History B12 deficiency Medical History mild L carpal tunnel syndrome per NCS by Dr Webb 05/08 Medical History acne rosacea Medical History history of nicotine addiction-07/2011 FEV 1 72% (2.1L)/ratio 111% Medical History allergic rhinitis/sinusitis, recurrent Medical History lumbar DJD s/p 01/2012 TLIF-M willowgoharish-03/2014 LS MRI stable post-op changes s stenosis/protrusion NCS B mild chronic L5/S1 radiculopathy-[facility] Medical History thoracic DJD-mild diffuse c mild curvature to right by 05/2013 xray Medical History 12mm seratted polyp and 6 mm adenomatous polyp by 07/2015 colonoscopy-[facility] Medical History minimal delayed gastric emptying by 07/01 016 GES (T1/2 129) Medical History antral gastritis by 07/2015 EGD-[facility] Medical History bilateral PE-post-op DCS 04/06/16 and nicotine use-05/2016 - PT gene variant/FVL-rxed c VKA x 8M Medical History CORTES-moderate by NPS[facility] RDI 23 c Sa02 to 70 s on chronic CPAP Medical History GERD-to thoracic inlet by 06/2017 UGI Medical History 50% disability per [facility] since 2009 for cervical DJD Surgical History partial hysterectomy 04/04 Surgical History AC joint repair by Dr Cullen 11/23/06 Surgical History UGI and Colonoscopy -Dr. Howell-Normal 0 07/18/2015 Surgical History dorsal column stimulator 04/2016 Hospitalization History B PE s/p DCS by CTA chest, - BLE DVT US, no hypercoag panel done, Dr. Jefferson favored at least 6M rx 04/2016 Goals Section No Information Health Concerns No Information MEDICAL EQUIPMENT No Information MENTAL STATUS No Information FUNCTIONAL STATUS No Information ASSESSMENTS Encounter Date Diagnosis Assessment Notes Treatment Notes Treatm ent Clinical Notes Apr, GERD (gastroesophageal reflux disease) (ICD-10 - K21.9) Apr, Non-seasonal allergic rhinit is, unspecified trigger (ICD-10 - J30.89) Apr, Vitamin D deficiency (ICD-10 - E55.9) Apr, Hypertension (ICD-10 - I10) Apr, Hypothyroid (ICD-10 - E03.9) Apr, Hyperlipidemia (ICD-10 - E78.5) Apr, Chronic diastolic congestive heart failure (ICD- 10 - I50.32) Apr, DJD (degenerative joint disease), lumbar (ICD-10 - M47.816) PLAN OF TREATMENT Medication Medication Name Sig Start Date Stop Date Ferrous Sulfate 325 (65 Fe) MG 1 tablet Orally Once a day for 90 day(s) Cyanocobalamin 500 MCG 1 tablet Orally Once a day for 90 day(s) Stockings Bilateral below the knee compression stockings 1 5-20 mmHg daily May Have as needed Liraglutide 18 MG/3ML 0.6 Subcutaneous QOD for 90 day(s) Levothyroxine Sodium 175 MCG 1 tablet on an empty stom ach in the morning Orally Once a day for 90 day(s) Nasonex 50 MCG/ACT 2 sprays in each nostril Elliott ally every morning as needed for 90 day(s) Carvedilol 12.5 MG 1 tab Orally bid for 90 day(s) Atorvastatin Calcium 20 MG 1 tablet Orally Once a day for 90 day (s) Skelaxin 800 MG 1 tablet Orally Three times a day for 90 day(s) Reglan 5 MG 1 tab Orally every morning for 90 day(s) Carafate 1 GM 1 tablet on an empty stomach Orally Twice a day for 90 day(s) Hydrocodone-Acetaminophen 5-325 MG 1 tablet as needed Orally TID, MDD 3 for 30 day(s) Apr, Furosemide 40 MG 1 1/2 tablet Orally Once a day for 90 day(s) Potassium Chloride ER 10 MEQ 1 capsule with food Orall y Once a day for 90 day(s) Voltaren 1 % 4 gm apply to right wrist Tr ansdermal 4 times a day as needed for 90 day(s) Ergocalciferol 90556 UNIT 1 capsule Orally weekly for 90 day(s) Pantoprazole Sodium 40 MG 1 tablet Orally bid for 90 day(s) Insurance Providers Payer Name Payer Address Payer Phone Insured Name Patient Relati onship to Insured Coverage Start Date Coverage End Date [facility] [id number] [facility] [phone] LIOR DUNHAM self
--- OUTSIDE RECORDS SUMMARY | 2020-06-25 10:54 | CCD ---
Author Author [facility] Organization [facility] Address Unknown Phone Unavailable Care Team Providers Care Mines Inspector Name Role Phone Cedrick Solares Unavailable PROBLEMS Type Condition ICD9-CM Code UCU30-IA Code Onset Dates Condition S tatus SNOMED Code Notes Problem DJD (degenerative joint disease), lumbar M47.816 Active 808346951 Problem Hyperlipidemia E78.5 Active 41836259 Problem Hypertension I10 Active 29502188 Problem Hypothyroid E03.9 Active 24525104 Problem Hx of hysterectomy for benign disease Z90.710 Ac tive 679058428 Problem Iron deficiency anemia, unspecified iron deficiency an emia type D50.9 Active 54255187 Problem Irritable bowel syndrome with diarrhea K58.0 A ctive 907406603 Problem Gastroparesis K31.84 Active 802335872 Problem History of pulmonary embolus (PE) Z86.711 Active 646367847 Problem 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 Active 835824557 Problem CORTES (obstructive sleep apnea) G47.33 Active 78 091322 Problem Non morbid obesity due to excess calories E66.09 Active 301659162 Problem Chronic diastolic congestive heart failure I50.32 Active 237166372 Problem B12 deficiency E53.8 Active 531503055 Problem Diabetes mellitus type 2, noninsulin dependent E11 .9 Active 509833270 Problem Cervical cancer screening Z12.4 Active 909645 001 Problem Vitamin D deficiency E55.9 Active 95850889 Problem Nicotine addiction F17.200 Active 499867829 Problem H/O adenomatous polyp of colon Z86.010 Active 4 13723325 Problem Mild intermittent asthma without complication J45. 20 Active 112469198 Problem GERD (gastroesophageal reflux disease) K21.9 A ctive 056195149 Problem Breast cancer screening Z12.39 Active 88811426 6 Problem Non-seasonal allergic rhinitis, unspecified trigger J30.89 Active 69429250 Problem Venous insufficiency of both lower extremities I87 .2 Active 319680517 Problem Mild intermittent asthma with acute exacerbation J 45.21 Active 218048288 Problem Borderline osteopenia M85.80 Active 901690518 ALLERGIES Allergen (clinical drug ingredient) Drug/Non Drug Allergy do cumented on EMR Reaction Allergy Type Onset Date Status codeine Codeine Sulfate([facility] Code:[address]-47) reflux Drug Al lergy Active varenicline Chantix([facility] Code:[address]-36) Nausea Drug Allergy Active lisinopril Lisinopril([facility] Code:[address]-89) cough Drug Allergy Active ENCOUNTERS from 1962 to 2020-05-13 Encounter Location Date Provider Diagnosis [address] [address] May, 021 Cedrick ORTIZD (degenerative joint disease), lumbar M47.816 IMMUNIZATIONS Vaccine [...] Associates Language: Question Answer Notes Languages spoken: Thai Scientology: Question Answer Notes Scientology 05 Lutheran Sexual Hx: Question Answer Notes Had sex [...] Notes Start Da te End Date Status Ergocalciferol 97002 UNIT 1 capsule Orally weekly for 90 day(s) Active Blood Glucose Test - as directed subcutaneously D X: E11.9 once a day for 30 days Mar, Active Pantoprazole Sodium 40 MG 1 tablet Orally bid for 90 day(s) Active Hydrocodone-Acetaminophen 5-325 MG 1 tablet as needed Orally TID, MDD 3 for 30 day(s) May, Active Levothyroxine Sodium 175 MCG 1 tablet on an empty stom ach in the morning Orally Once a day for 90 day(s) Active Carafate 1 GM 1 tablet on an empty stomach Orally Twice a day for 9 0 day(s) Active Carvedilol 12.5 MG 1 tab Orally bid for 90 day(s) Active May Have as needed Active Atorvastatin Calcium 20 MG 1 tablet Orally Once a day for 90 day(s) Active BD Ultra-fine Pen [place] 32G 4mm as directed DX :E 11.9 Daily f or 90 day(s) Apr, Active Ferrous Sulfate 325 (65 Fe) MG 1 tablet Orally Once a day for 90 day( s) Active Cyanocobalamin 500 MCG 1 tablet Orally Once a day for 90 day(s) Active Liraglutide 18 MG/3ML 0.6 Subcutaneous QOD for 90 day(s) Active Nasonex 50 MCG/ACT 2 sprays in each nostril Elliott ally every morning as needed for 90 day(s) Active Stockings Bilateral below the knee compression stockings 15-20 mmHg daily Active Voltaren 1 % 4 gm apply to right wrist Tr ansdermal 4 times a day as needed for 90 day(s) Active CPAP mask and tubing DX: G47.33 at bedtime for 99 days Mar, Active Skelaxin 800 MG 1 tablet Orally Three times a day for 90 day(s) Active Furosemide 40 MG 1 1/2 tablet Orally Once a day for 90 day(s) Active Lancets - as directed subcutaneously DX: E11.9 once a day for 30 Days Mar, Active Glucometer as directed DX: E11.9 Daily for 99 days Mar, Active Proventil HFA 108 (90 Base) MCG/ACT 2 puffs as needed Inhalation every 6 hrs prn cough for 30 Days May, Active Reglan 5 MG 1 tab Orally every morning for 90 day(s) Active Potassium Chloride ER 10 MEQ 1 capsule with food Orall y Once a day for 90 day(s) Active PROCEDURES No Information RESULTS No Results REASON FOR VISIT Hydrocodone MEDICAL (GENERAL) HISTORY Type Description Date Medical [...] Medical History lumbar DJD s/p 01/2012 TLIF-M [place]-03/2014 LS MRI stable post-op changes s stenosis/protrusion NCS B mild chronic L5/S1 radiculopathy[facility] Medical History thoracic DJD-mild diffuse c mild curvature to right by 05/2013 xray Medical History 12mm seratted polyp and 6 mm adenomatous polyp [facility] Medical History minimal delayed gastric emptying by 07/01 016 GES (T1/2 129) Medical History antral gastritis by 07/2015 EGD-[facility] Medical History bilateral PE-post-op DCS 04/06/16 and [...] Notes Treatment Notes Treatm ent Clinical Notes May, DJD (degenerative joint disease), lumbar (ICD-10 - M47.816) PLAN OF TREATMENT Medication Medication Name Sig Start Date Stop Date Ferrous Sulfate 325 (65 Fe) MG 1 tablet Orally Once a day for 90 day(s) Cyanocobalamin 500 MCG 1 tablet Orally Once a day for 90 day(s) Stockings Bilateral below the knee compression stockings 1 5-20 mmHg daily May Have as needed Furosemide 40 MG 1 1/2 tablet Orally Once a day for 90 day(s) Atorvastatin Calcium 20 MG 1 tablet Orally Once a day for 90 day (s) Liraglutide 18 MG/3ML 0.6 Subcutaneous QOD for 90 day(s) Levothyroxine Sodium 175 MCG 1 tablet on an empty stom ach in the morning Orally Once a day for 90 day(s) Hydrocodone-Acetaminophen 5-325 MG 1 tablet as needed Orally TID, MDD 3 for 30 day(s) May, Skelaxin 800 MG 1 tablet Orally Three times a day for 90 day(s) Reglan 5 MG 1 tab Orally every morning for 90 day(s) Nasonex 50 MCG/ACT 2 sprays in each nostril Elliott ally every morning as needed for 90 day(s) Carafate 1 GM 1 tablet on an empty stomach Orally Twice a day for 90 day(s) Voltaren 1 % 4 gm apply to right wrist Tr ansdermal 4 times a day as needed for 90 day(s) Pantoprazole Sodium 40 MG 1 tablet Orally bid for 90 day(s) Potassium Chloride ER 10 MEQ 1 capsule with food Orall y Once a day for 90 day(s) Carvedilol 12.5 MG 1 tab Orally bid for 90 day(s) Ergocalciferol 43015 UNIT 1 capsule Orally weekly for 90 day(s) Insurance Providers Payer Name Payer Address Payer Phone Insured Name Patient Relati onship to Insured Coverage Start Date Coverage End Date [facility] [id number] [facility] [phone] LIOR DUNHAM self
--- OUTSIDE RECORDS SUMMARY | 2020-06-25 10:54 | CCD ---
Author Author [facility] Organization [facility] Address Unknown Phone Unavailable Care Team Providers Care Manager Performance Improvement Name Role Phone Cedrick Solares Unavailable PROBLEMS Type Condition ICD9-CM Code BFO16-JI Code Onset Dates Condition S tatus SNOMED Code Notes Problem DJD (degenerative joint disease), lumbar M47.816 Active 619221872 Problem Hyperlipidemia E78.5 Active 58840899 Problem Hypertension I10 Active 75073118 Problem Hypothyroid E03.9 Active 09525158 Problem Hx of hysterectomy for benign disease Z90.710 Ac tive 993020056 Problem Iron deficiency anemia, unspecified iron deficiency an emia type D50.9 Active 74966592 Problem Irritable bowel syndrome with diarrhea K58.0 A ctive 139461278 Problem Gastroparesis K31.84 Active 980245954 Problem History of pulmonary embolus (PE) Z86.711 Active 260183960 Problem 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 Active 008930938 Problem CORTES (obstructive sleep apnea) G47.33 Active 78 806435 Problem Non morbid obesity due to excess calories E66.09 Active 191289334 Problem Chronic diastolic congestive heart failure I50.32 Active 535902986 Problem B12 deficiency E53.8 Active 214220882 Problem Diabetes mellitus type 2, noninsulin dependent E11 .9 Active 792833327 Problem Cervical cancer screening Z12.4 Active 235720 001 Problem Vitamin D deficiency E55.9 Active 95319465 Problem Nicotine addiction F17.200 Active 192989475 Problem H/O adenomatous polyp of colon Z86.010 Active 4 94280208 Problem Mild intermittent asthma without complication J45. 20 Active 722977913 Problem GERD (gastroesophageal reflux disease) K21.9 A ctive 909379032 Problem Breast cancer screening Z12.39 Active 53012460 6 Problem Non-seasonal allergic rhinitis, unspecified trigger J30.89 Active 48562039 Problem Venous insufficiency of both lower extremities I87 .2 Active 610345189 Problem Mild intermittent asthma with acute exacerbation J 45.21 Active 856427971 Problem Borderline osteopenia M85.80 Active 277605572 ALLERGIES Allergen (clinical drug ingredient) Drug/Non Drug Allergy do cumented on EMR Reaction Allergy Type Onset Date Status codeine Codeine Sulfate([facility] Code:[address]-01) reflux Drug Al lergy Active varenicline Chantix([facility] Code:[address]-52) Nausea Drug Allergy Active lisinopril Lisinopril([facility] Code:[address]-80) cough Drug Allergy Active ENCOUNTERS from 1962 to 2020-04-21 Encounter Location Date Provider Diagnosis [address] [address] Apr, 020 Cedrick Solares IMMUNIZATIONS Vaccine Route Administration Date Status Influenza [...] Associates Language: Question Answer Notes Languages spoken: Yakut Gnosticism: Question Answer Notes Gnosticism 05 Zoroastrian Sexual Hx: Question Answer Notes Had sex [...] 3 for 30 day(s) Apr, Active Ergocalciferol 07320 UNIT 1 capsule Orally weekly for 90 day(s) Active May Have as needed Active Levothyroxine Sodium 175 MCG 1 tablet on an empty stom ach in the morning Orally Once a day for 90 day(s) Active BD Ultra-fine Pen [place] 32G 4mm as directed DX :E 11.9 [...] Information RESULTS No Results REASON FOR VISIT prescriptions MEDICAL (GENERAL) HISTORY Type Description Date Medical [...] Medical History lumbar DJD s/p 01/2012 TLIF-M [place]-03/2014 LS MRI stable post-op changes s stenosis/protrusion NCS B mild chronic L5/S1 radiculopathy-[facility] Medical History thoracic DJD-mild diffuse c mild curvature to right by 05/2013 xray Medical History 12mm seratted polyp and 6 mm adenomatous polyp by 07/2015 colonoscopy-[facility] Medical History minimal delayed gastric emptying by 07/01 016 GES (T1/2 129) Medical History antral gastritis by 07/2015 [facility] Medical History bilateral PE-post-op DCS 04/06/16 and [...] No Information FUNCTIONAL STATUS No Information ASSESSMENTS No Information PLAN OF TREATMENT Medication Medication Name Sig [...] day as needed for 90 day(s) Ergocalciferol 35403 UNIT 1 capsule Orally weekly for 90 day(s) Pantoprazole Sodium 40 MG 1 tablet Orally bid for 90 day(s) Insurance Providers Payer Name Payer Address Payer Phone Insured Name Patient Relati onship to Insured Coverage Start Date Coverage End Date [facility] [address] [facility] [phone] LIOR DUNHAM self
--- OUTSIDE RECORDS SUMMARY | 2020-06-25 10:54 | CCD ---
Author Author [facility] Organization [facility] Address Unknown Phone Unavailable Care Team Providers Care Residential Real Estate Sales Manager Name Role Phone Cedrick Solares Unavailable PROBLEMS Type Condition ICD9-CM Code [id number] Code Onset Dates Condition S tatus SNOMED Code Notes Problem DJD (degenerative joint disease), lumbar M47.816 Active 219875976 Problem Hyperlipidemia E78.5 Active 40889353 Problem Hypertension I10 Active 58728723 Problem Hypothyroid E03.9 Active 20258777 Problem Hx of hysterectomy for benign disease Z90.710 Ac tive 524393144 Problem Iron deficiency anemia, unspecified iron deficiency an emia type D50.9 Active 12192044 Problem Irritable bowel syndrome with diarrhea K58.0 A ctive 259510950 Problem Gastroparesis K31.84 Active 943069942 Problem History of pulmonary embolus (PE) Z86.711 Active 173342048 Problem 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 Active 582218478 Problem CORTES (obstructive sleep apnea) G47.33 Active 78 012445 Problem Non morbid obesity due to excess calories E66.09 Active 772973574 Problem Chronic diastolic congestive heart failure I50.32 Active 602807058 Problem B12 deficiency E53.8 Active 003985385 Problem Diabetes mellitus type 2, noninsulin dependent E11 .9 Active 285826472 Problem Cervical cancer screening Z12.4 Active 730061 001 Problem Vitamin D deficiency E55.9 Active 19312225 Problem Nicotine addiction F17.200 Active 570681267 Problem H/O adenomatous polyp of colon Z86.010 Active 4 15888696 Problem Mild intermittent asthma without complication J45. 20 Active 283960406 Problem GERD (gastroesophageal reflux disease) K21.9 A ctive 809979054 Problem Breast cancer screening Z12.39 Active 11056709 6 Problem Non-seasonal allergic rhinitis, unspecified trigger J30.89 Active 60582487 Problem Venous insufficiency of both lower extremities I87 .2 Active 693825585 Problem Mild intermittent asthma with acute exacerbation J 45.21 Active 888092577 Problem Borderline osteopenia M85.80 Active 037852415 ALLERGIES Allergen (clinical drug ingredient) Drug/Non Drug Allergy do cumented on EMR Reaction Allergy Type Onset Date Status codeine Codeine Sulfate([facility] Code:[address]-73) reflux Drug Al lergy Active varenicline Chantix([facility] Code:[address]-70) Nausea Drug Allergy Active lisinopril Lisinopril([facility] Code:[address]-16) cough Drug Allergy Active ENCOUNTERS from 1962 to 2020-05-14 Encounter Location Date Provider Diagnosis [address] [address] May, 021 Cedrick ORTIZD (degenerative joint disease), [...] Associates Language: Question Answer Notes Languages spoken: Telugu Jew: Question Answer Notes Jew 05 Muslim Sexual Hx: Question Answer Notes Had sex [...] Start Da te End Date Status Ergocalciferol 14634 UNIT 1 capsule Orally weekly for 90 [...] for 90 day(s) Active BD Ultra-fine Pen [place] 32G 4mm as directed DX :E 11.9 [...] Information RESULTS No Results REASON FOR VISIT wrong pharmacy MEDICAL (GENERAL) HISTORY Type Description Date Medical [...] s stenosis/protrusion NCS B mild chronic L5/S1 radiculopathy-[facility] Medical History thoracic DJD-mild diffuse c [...] tab Orally bid for 90 day(s) Ergocalciferol 91617 UNIT 1 capsule Orally weekly for 90 day(s) Insurance Providers Payer Name Payer Address Payer Phone Insured Name Patient Relati onship to Insured Coverage Start Date Coverage End Date [facility] [address] [facility] [phone] LIOR DUNHAM self
--- OUTSIDE RECORDS SUMMARY | 2020-06-25 10:55 | CCD ---
Author Author [facility] Organization [facility] Address Unknown Phone Unavailable Care Team Providers Care Ship Unloader Name Role Phone Cedrick Solares Unavailable PROBLEMS Type Condition ICD9-CM Code COS39-HL Code Onset Dates Condition S tatus SNOMED Code Notes Problem DJD (degenerative joint disease), lumbar M47.816 Active 997310114 Problem Hyperlipidemia E78.5 Active 58016286 Problem Hypertension I10 Active 58179768 Problem Hypothyroid E03.9 Active 48738308 Problem Hx of hysterectomy for benign disease Z90.710 Ac tive 948176988 Problem Iron deficiency anemia, unspecified iron deficiency an emia type D50.9 Active 41002177 Problem Irritable bowel syndrome with diarrhea K58.0 A ctive 436009106 Problem Gastroparesis K31.84 Active 430745392 Problem History of pulmonary embolus (PE) Z86.711 Active 260654469 Problem 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 Active 892520211 Problem CORTES (obstructive sleep apnea) G47.33 Active 78 835185 Problem Non morbid obesity due to excess calories E66.09 Active 948177472 Problem Chronic diastolic congestive heart failure I50.32 Active 939283376 Problem B12 deficiency E53.8 Active 629363859 Problem Diabetes mellitus type 2, noninsulin dependent E11 .9 Active 950030958 Problem Cervical cancer screening Z12.4 Active 054679 001 Problem Vitamin D deficiency E55.9 Active 56692334 Problem Nicotine addiction F17.200 Active 753954955 Problem H/O adenomatous polyp of colon Z86.010 Active 4 55247864 Problem Mild intermittent asthma without complication J45. 20 Active 193630149 Problem GERD (gastroesophageal reflux disease) K21.9 A ctive 658903214 Problem Breast cancer screening Z12.39 Active 26231336 6 Problem Non-seasonal allergic rhinitis, unspecified trigger J30.89 Active 29835494 Problem Venous insufficiency of both lower extremities I87 .2 Active 059701435 Problem Mild intermittent asthma with acute exacerbation J 45.21 Active 107149840 Problem Borderline osteopenia M85.80 Active 724638282 ALLERGIES Allergen (clinical drug ingredient) Drug/Non Drug Allergy do cumented on EMR Reaction Allergy Type Onset Date Status codeine Codeine Sulfate([facility] Code:[address]-17) reflux Drug Al lergy Active varenicline Chantix([facility] Code:[address]-87) Nausea Drug Allergy Active lisinopril Lisinopril([facility] Code:[address]-10) cough Drug Allergy Active ENCOUNTERS from 1960 to 2020-04-04 Encounter Location Date Provider Diagnosis [address] [address] Apr, 020 Cedrick Solares IMMUNIZATIONS Vaccine Route [...] Associates Language: Question Answer Notes Languages spoken: Maltese Anabaptism: Question Answer Notes Anabaptism 05 Mormon Sexual Hx: Question Answer Notes Had sex [...] Start Da te End Date Status Ergocalciferol 34589 UNIT 1 capsule Orally weekly Active Blood Glucose Test - as directed subcutaneously D X: E11.9 once a day for 30 days Mar, Active Skelaxin 800 MG 1 tablet Orally Three times a day for 90 day(s) Active Glucometer as directed DX: E11.9 Daily for 99 days Mar, Active Carvedilol 12.5 MG 1 tab Orally bid Active Reglan 5 MG 1 tab Orally every morning for 90 day(s) Active Hydrocodone-Acetaminophen 5-325 MG 1 tablet as needed Orally TID, MDD 3 for 30 day(s) Apr, Active BD Ultra-fine Pen [place] 32G 4mm as directed DX :E 11.9 Daily f or 90 day(s) Apr, Active Liraglutide 18 MG/3ML 0.6 Subcutaneous QOD for 90 day(s) Active Pantoprazole Sodium 40 MG 1 tablet Orally bid for 90 day(s) Active Cyanocobalamin 500 MCG 1 tablet Orally Once a day for 90 day(s) Active Atorvastatin Calcium 20 MG 1 tablet Orally Once a day for 90 day(s) Active Nasonex 50 MCG/ACT 2 sprays in each nostril Nasally every morning a s needed Active Voltaren 1 % 4 gm apply to right wrist Tr ansdermal 4 times a day as needed for 90 day(s) Active Potassium Chloride ER 10 MEQ 1 capsule with food Orall y Once a day for 90 day(s) Active May Have as needed Active Lancets - as directed subcutaneously DX: E11.9 once a day for 30 Days Mar, Active Furosemide 40 MG 1 1/2 tablet Orally Once a day for 90 day(s) Active Ferrous Sulfate 325 (65 Fe) MG 1 tablet Orally Once a day for 90 day( s) Active Levothyroxine Sodium 175 MCG 1 tablet on an empty stom ach in the morning Orally Once a day for 90 day(s) Active CPAP mask and tubing DX: G47.33 at bedtime for 99 days Mar, Active Proventil HFA 108 (90 Base) MCG/ACT 2 puffs as needed Inhalation every 6 hrs prn cough for 30 Days May, Active Carafate 1 GM 1 tablet on an empty stomach Orally Twice a day for 9 0 day(s) Active Stockings Bilateral below the knee compression stockings 15-20 mmHg daily Active PROCEDURES No Information RESULTS No Results REASON FOR VISIT fmla paperwork MEDICAL (GENERAL) HISTORY Type Description Date Medical [...] Medical History lumbar DJD s/p 01/2012 TLIF-M [place]-03/2014 LS MRI stable post-op changes s stenosis/protrusion NCS B mild chronic L5/S1 radiculopathy-[facility] Medical History thoracic DJD-mild diffuse c [...] Medication Name Sig Start Date Stop Date Pantoprazole Sodium 40 MG 1 tablet Orally bid for 90 day(s) Atorvastatin Calcium 20 MG 1 tablet Orally Once a day for 90 day (s) Potassium Chloride ER 10 MEQ 1 capsule with food Orall y Once a day for 90 day(s) Cyanocobalamin 500 MCG 1 tablet Orally Once a day for 90 day(s) Ferrous Sulfate 325 (65 Fe) MG 1 tablet Orally Once a day for 90 day(s) Liraglutide 18 MG/3ML 0.6 Subcutaneous QOD for 90 day(s) Nasonex 50 MCG/ACT 2 sprays in each nostril Nasally every mornin g as needed Carvedilol 12.5 MG 1 tab Orally bid Levothyroxine Sodium 175 MCG 1 tablet on an empty stom ach in the morning Orally Once a day for 90 day(s) Furosemide 40 MG 1 1/2 tablet Orally Once a day for 90 day(s) Carafate 1 GM 1 tablet on an empty stomach Orally Twice a day for 90 day(s) Voltaren 1 % 4 gm apply to right wrist Tr ansdermal 4 times a day as needed for 90 day(s) Reglan 5 MG 1 tab Orally every morning for 90 day(s) May Have as needed Skelaxin 800 MG 1 tablet Orally Three times a day for 90 day(s) Stockings Bilateral below the knee compression stockings 1 5-20 mmHg daily Hydrocodone-Acetaminophen 5-325 MG 1 tablet as needed Orally TID, MDD 3 for 30 day(s) Apr, Ergocalciferol 83397 UNIT 1 capsule Orally weekly Insurance Providers Payer Name Payer Address Payer Phone Insured Name Patient Relati onship to Insured Coverage Start Date Coverage End Date [facility] [address] [facility] [phone] LIOR DUNHAM self
--- OUTSIDE RECORDS SUMMARY | 2020-06-25 10:55 | CCD ---
Author Author [facility] Organization [facility] Address Unknown Phone Unavailable Care Team Providers Care Child Attendant Name Role Phone Charlebois, A [place] RPA C Unavailable Unavailable Charlebois, A [place] RPA C Unavailable Unavailable Charlebois, A [place] RPA C Unavailable Unavailable Charlebois, A [place] RPA C Unavailable Unavailable Charlebois, A [place] RPA C Unavailable Unavailable Charlebois, A [place] RPA C Unavailable Unavailable Charlebois, A [place] RPA C Unavailable Unavailable Charlebois, A [place] RPA C Unavailable Unavailable Charlebois, A [place] RPA C Unavailable Unavailable Charlebois, A [place] RPA C Unavailable Unavailable Charlebois, A [place] RPA C Unavailable Unavailable Charlebois, A [place] RPA C Unavailable Unavailable Charlebois, A [place] RPA C Unavailable Unavailable Charlebois, A [place] RPA C Unavailable Unavailable Charlebois, A [place] RPA C Unavailable Unavailable Charlebois, A [place] RPA C Unavailable Unavailable Charlebois, A [place] RPA C Unavailable Unavailable Charlebois, A [place] RPA C Unavailable Unavailable Charlebois, A [place] RPA C Unavailable Unavailable Charlebois, A [place] RPA C Unavailable Unavailable Charlebois, A [place] RPA C Unavailable Unavailable Charlebois, A [place] RPA C Unavailable Unavailable Charlebois, A [place] RPA C Unavailable Unavailable Charlebois, A [place] RPA C Unavailable Unavailable Charlebois, A [place] RPA C Unavailable Unavailable Charlebois, A [place] RPA C Unavailable Unavailable Charlebois, A [place] RPA C Unavailable Unavailable Charlebois, A [place] RPA C Unavailable Unavailable Charlebois, A [place] RPA C Unavailable Unavailable Charlebois, A [place] RPA C Unavailable Unavailable Charlebois, A [place] RPA C Unavailable Unavailable Re-disclosure Warning The records that you are about to access may contain information from federally-assisted alcohol or drug abuse programs. If such information is present, then the following federally mandated warning applies: This information has been disclosed to you from records protected by federal confidentiality rules (42 CFR part 2). The federal rules prohibit you from making any further disclosure of this information unless further disclosure is expressly permitted by the written consent of the person to whom it pertains or as otherwise permitted by 42 CFR part 2. A general authorization for the release of medical or other information is NOT sufficient for this purpose. The Federal rules restrict any use of the information to criminally investigate or prosecute any alcohol or drug abuse patient.The records that you are about to access may contain highly sensitive health information, the redisclosure of which is protected by Article 27-F of the [place] State Public Health law. If you continue you may have access to information: Regarding HIV / AIDS; Provided by facilities licensed or operated by the [facility] Office of Mental Health; or Provided by the [facility] Office for People With Developmental Disabilities. If such information is present, then the following [facility] mandated warning applies: This information has been disclosed to you from confidential records which are protected by state law. State law prohibits you from making any further disclosure of this information without the specific written consent of the person to whom it pertains, or as otherwise permitted by law. Any unauthorized further disclosure in violation of state law may result in a fine or intermediate sentence or both. A general authorization for the release of medical or other information is NOT sufficient authorization for further disc losure. Allergies and Adverse Reactions Type Description Substance Reaction Status Data Source(s ) lisinopril Lisinopril Lisinopril cough Active eCW1 ([facility]) Drug allergy Chantix varenicline Nausea Active eCW1 ([facility]) Codeine Sulfate Codeine Sulfate Codeine Sulfate reflux Active eCW1 ([facility]) Drug Allergy NKDA NKDA MEDENT ([facility], ) Family History Family Member Name Family Member Gender Family Member Status Date o f Status Description Data Source(s) Unknown Unknown Problem MEDENT ([facility] mother Unknown Unknown Problem MEDENT ([facility], ) Unknown Unknown Problem MEDENT ([facility], ) Unknown Unknown Problem MEDENT ([facility]) Encounters Encounter Providers Location Date Indications Data Source(s ) Unknown [address] [facility] [place] [address] 05/13/2020 12:00:00 AM EST eCW1 ([facility]) Unknown [address] [facility] [place] [address] 05/12/2020 12:00:00 AM EST eCW1 ([facility]) [place] [address] [facility] [place] [address] 04/21/2020 12:00:00 AM EST eCW1 ([facility]) Unknown [address] [facility] [place] [address] 04/20/2020 12:00:00 AM EST eCW1 ([facility]) [place] [address] [facility] [place] [address] 04/03/2020 12:00:00 AM EST eCW1 ([facility]) Unknown [address] [facility] [place] [address] 04/02/2020 12:00:00 AM EST eCW1 ([facility]) [place] [address] [facility] [place] [address] 03/14/2020 12:00:00 AM EST eCW1 ([facility] [place] [address] [facility] [place] [address] 03/11/2020 12:00:00 AM EST [facility] [place] [address] [facility] [place] [address] 03/10/2020 12:00:00 AM EST eCW1 ([facility] Unknown [address] [facility] [place] [address] 03/05/2020 12:00:00 AM EST eCW1 ([facility]) [place] [address] [facility] [place] [address] 03/04/2020 12:00:00 AM EST eCW1 ([facility]) Outpatient [address] [facility] [place] [address] 02/29/2020 12:00:00 AM EDT eCW1 ([facility]) Unknown [address] [facility] [place] [address] 02/20/2020 12:00:00 AM EDT eCW1 ([facility]) [facility] [address] [facility] [place] [address] 11/30/2019 12:00:00 AM EDT eCW1 ([facility]) Unknown [address] [facility] [place] [address] 10/22/2019 12:00:00 AM EDT eCW1 ([facility]) Unknown [address] [facility] [place] [address] 10/22/2019 12:00:00 AM EDT eCW1 ([facility]) Outpatient Attender: [place] López/Ana/Jet moon/Lynda 09/18/2019 08:15:00 AM EDT MEDENT ([facility]) [facility] [address] [place] [address], [place] [address] 09/12/2019 12:00:00 AM EDT eCW1 ([facility]) [address] [address] 08/08/2019 12:00:00 AM EDT eCW1 ([facility]) [address] [address] 07/19/2019 12:00:00 AM EDT eCW1 ([facility]) [address] [address] 07/10/2019 12:00:00 AM EDT eCW1 ([facility]) [address] [address] 05/30/2019 12:00:00 AM EST eCW1 ([facility]) [address] [address] 05/04/2019 12:00:00 AM EST eCW1 ([facility]) [address] [address] 05/03/2019 12:00:00 AM EST eCW1 ([facility]) Immunizations Vaccine Date Status Description Data Source(s) influenza, recombinant, quadrIvalent,injectable, prese rvative free 02/29/2020 06:46:00 PM EDT completed eCW1 ([facility]) influenza, recombinant, quadrIvalent,injectable, prese rvative free 02/29/2020 06:46:00 PM EDT completed eCW1 ([facility]) influenza, recombinant, quadrIvalent,injectable, prese rvative free 02/29/2020 06:46:00 PM EDT completed eCW1 ([facility]) influenza, recombinant, quadrIvalent,injectable, prese rvative free 02/29/2020 06:46:00 PM EDT completed eCW1 ([facility]) influenza, recombinant, quadrIvalent,injectable, prese rvative free 02/29/2020 06:46:00 PM EDT completed eCW1 ([facility]) influenza, recombinant, quadrIvalent,injectable, prese rvative free 02/29/2020 06:46:00 PM EDT completed eCW1 ([facility]) influenza, recombinant, quadrIvalent,injectable, prese rvative free 02/29/2020 06:46:00 PM EDT completed eCW1 ([facility]) influenza, recombinant, quadrIvalent,injectable, prese rvative free 02/29/2020 06:46:00 PM EDT completed eCW1 ([facility]) influenza, recombinant, quadrIvalent,injectable, prese rvative free 02/29/2020 06:46:00 PM EDT completed eCW1 ([facility]) influenza, recombinant, quadrIvalent,injectable, prese rvative free 02/29/2020 06:46:00 PM EDT completed eCW1 ([facility]) influenza, recombinant, quadrIvalent,injectable, prese rvative free 02/29/2020 06:46:00 PM EDT completed eCW1 ([facility]) influenza, recombinant, quadrIvalent,injectable, prese rvative free 02/29/2020 06:46:00 PM EDT completed eCW1 ([facility]) Depo-Medrol 80mg (Methylprednisolone Acetate) 05/03/2019 05: 41:00 PM EST completed eCW1 ([facility]) Depo-Medrol 80mg (Methylprednisolone Acetate) 05/03/2019 05: 41:00 PM EST completed eCW1 ([facility]) Depo-Medrol 80mg (Methylprednisolone Acetate) 05/03/2019 05: 41:00 PM EST completed eCW1 ([facility]) Depo-Medrol 80mg (Methylprednisolone Acetate) 05/03/2019 05: 41:00 PM EST completed eCW1 ([facility]) Depo-Medrol 80mg (Methylprednisolone Acetate) 05/03/2019 05: 41:00 PM EST completed eCW1 ([facility]) Depo-Medrol 80mg (Methylprednisolone Acetate) 05/03/2019 05: 41:00 PM EST completed eCW1 ([facility]) Depo-Medrol 80mg (Methylprednisolone Acetate) 05/03/2019 05: 41:00 PM EST completed eCW1 ([facility]) Depo-Medrol 80mg (Methylprednisolone Acetate) 05/03/2019 05: 41:00 PM EST completed eCW1 ([facility]) Depo-Medrol 80mg (Methylprednisolone Acetate) 05/03/2019 05: 41:00 PM EST completed eCW1 ([facility]) Depo-Medrol 80mg (Methylprednisolone Acetate) 05/03/2019 05: 41:00 PM EST completed eCW1 ([facility]) Depo-Medrol 80mg (Methylprednisolone Acetate) 05/03/2019 05: 41:00 PM EST completed eCW1 ([facility]) Depo-Medrol 80mg (Methylprednisolone Acetate) 05/03/2019 05: 41:00 PM EST completed eCW1 ([facility]) Depo-Medrol 80mg (Methylprednisolone Acetate) 05/03/2019 05: 41:00 PM EST completed eCW1 ([facility]) Depo-Medrol 80mg (Methylprednisolone Acetate) 05/03/2019 05: 41:00 PM EST completed eCW1 ([facility]) Depo-Medrol 40mg (Methylpredisolone Acetate) 05/03/2019 05:3 9:00 PM EST completed eCW1 ([facility]) Depo-Medrol 40mg (Methylpredisolone Acetate) 05/03/2019 05:3 9:00 PM EST completed eCW1 ([facility]) Depo-Medrol 40mg (Methylpredisolone Acetate) 05/03/2019 05:3 9:00 PM EST completed eCW1 ([facility]) Depo-Medrol 40mg (Methylpredisolone Acetate) 05/03/2019 05:3 9:00 PM EST completed eCW1 ([facility]) Depo-Medrol 40mg (Methylpredisolone Acetate) 05/03/2019 05:3 9:00 PM EST completed eCW1 ([facility]) Depo-Medrol 40mg (Methylpredisolone Acetate) 05/03/2019 05:3 9:00 PM EST completed eCW1 ([facility]) Depo-Medrol 40mg (Methylpredisolone Acetate) 05/03/2019 05:3 9:00 PM EST completed eCW1 ([facility]) Depo-Medrol 40mg (Methylpredisolone Acetate) 05/03/2019 05:3 9:00 PM EST completed eCW1 ([facility]) Depo-Medrol 40mg (Methylpredisolone Acetate) 05/03/2019 05:3 9:00 PM EST completed eCW1 ([facility]) Depo-Medrol 40mg (Methylpredisolone Acetate) 05/03/2019 05:3 9:00 PM EST completed eCW1 ([facility]) Depo-Medrol 40mg (Methylpredisolone Acetate) 05/03/2019 05:3 9:00 PM EST completed eCW1 ([facility]) Depo-Medrol 40mg (Methylpredisolone Acetate) 05/03/2019 05:3 9:00 PM EST completed eCW1 ([facility]) Depo-Medrol 40mg (Methylpredisolone Acetate) 05/03/2019 05:3 9:00 PM EST completed eCW1 ([facility]) Depo-Medrol 40mg (Methylpredisolone Acetate) 05/03/2019 05:3 9:00 PM EST completed eCW1 ([facility]) Medications Medication Brand Name Start Date Product Form Dose Route Admi nistrative Instructions Pharmacy Instructions Status Indications Reaction Description Data Source(s) 5-325 mg 05/15/2020 12:00:00 AM EST tablet 90 TAKE ONE TABLET BY MOUTH THREE TIMES A DAY NEEDED MAXIMUM DAILY DOSE = THREE TABLETS TAKE ONE TABLET BY MOUTH THREE TIMES A DAY NEEDED MAXIMUM DAILY DOSE = THREE TABLETS SOLD: 05/22/2020 [facility] Acetaminophen 325 MG / Hydrocodone Kwesi trate 5 MG Oral Tablet Hydrocodone- Acetaminophen 5-325 MG Hydrocodone-Acetaminophen 5-325 MG 05/13/2020 12:00:00 AM EST 1.0 {tablet_as_needed} active Hydrocodone-Acetaminophen 5-325 MG eCW1 ([facility]) Acetaminophen 325 MG / Hydrocodone Kwesi trate 5 MG Oral Tablet Hydrocodone- Acetaminophen 5-325 MG Hydrocodone-Acetaminophen 5-325 MG 05/13/2020 12:00:00 AM EST 1.0 {tablet_as_needed} active Hydrocodone-Acetaminophen 5-325 MG eCW1 ([facility]) Acetaminophen 325 MG / Hydrocodone Kwesi trate 5 MG Oral Tablet Hydrocodone- Acetaminophen 5-325 MG Hydrocodone-Acetaminophen 5-325 MG 04/03/2020 12:00:00 AM EST 1.0 {tablet_as_needed} active Hydrocodone-Acetaminophen 5-325 MG eCW1 ([facility]) Acetaminophen 325 MG / Hydrocodone Kwesi trate 5 MG Oral Tablet Hydrocodone- Acetaminophen 5-325 MG Hydrocodone-Acetaminophen 5-325 MG 04/03/2020 12:00:00 AM EST 1.0 {tablet_as_needed} active Hydrocodone-Acetaminophen 5-325 MG eCW1 ([facility]) 5-325 mg 04/03/2020 12:00:00 AM EST tablet 90 TAKE 1 TABLET ORALLY THREE TIMES A DAY NEEDED. MAXIMUM DAILY DOSE OF 3 TAKE 1 TABLET ORALLY THREE TIMES A DAY NEEDED. MAXIMUM DAILY DOSE OF 3 SOLD: 04/04/2020 [facility] Acetaminophen 325 MG / Hydrocodone Kwesi trate 5 MG Oral Tablet Hydrocodone- Acetaminophen 5-325 MG Hydrocodone-Acetaminophen 5-325 MG 04/03/2020 12:00:00 AM EST 1.0 {tablet_as_needed} active Hydrocodone-Acetaminophen 5-325 MG eCW1 ([facility]) Acetaminophen 325 MG / Hydrocodone Kwesi trate 5 MG Oral Tablet Hydrocodone- Acetaminophen 5-325 MG Hydrocodone-Acetaminophen 5-325 MG 04/03/2020 12:00:00 AM EST 1.0 {tablet_as_needed} active Hydrocodone-Acetaminophen 5-325 MG eCW1 ([facility]) Acetaminophen 325 MG / Hydrocodone Kwesi trate 5 MG Oral Tablet Hydrocodone- Acetaminophen 5-325 MG Hydrocodone-Acetaminophen 5-325 MG 02/21/2020 12:00:00 AM EDT 1.0 {tablet_as_needed} active Hydrocodone-Acetaminophen 5-325 MG eCW1 ([facility]) 5-325 mg 02/21/2020 12:00:00 AM EDT tablet 90 TAKE ONE TABLET BY MOUTH THREE TIMES A DAY NEEDED MAXIMUM DAILY DOSE = 3 TABLETS TAKE ONE TABLET BY MOUTH THREE TIMES A DAY NEEDED MAXIMUM DAILY DOSE = 3 TABLETS SOLD: 02/22/2020 [facility] 5-325 mg 01/15/2020 12:00:00 AM EDT tablet 90 TAKE ONE TABLET BY MOUTH THREE TIMES A DAY NEEDED MAXIMUM DAILY DOSE = 3 TABLETS TAKE ONE TABLET BY MOUTH THREE TIMES A DAY NEEDED MAXIMUM DAILY DOSE = 3 TABLETS SOLD: 01/16/2020 [facility] 5 mg 01/01/2020 12:00:00 AM EDT tablet 74 TAKE TWO TABLETS BY MOUTH TWICE A DAY FOR 7 DAYS THEN 1 TWO TIMES A DAY TAKE TWO TABLETS BY MOUTH TWICE A DAY FO R 7 DAYS THEN 1 TWO TIMES A DAY SOLD: 01/01/2020 [facility] 5-325 mg 11/29/2019 12:00:00 AM EDT tablet 90 TAKE ONE TABLET BY MOUTH THREE TIMES A DAY NEEDED MAXIMUM DAILY DOSE = 3 TAKE ONE TABLET BY MOUTH THREE TIMES A DAY NEEDED MAXIMUM DAILY DOSE = 3 SOLD: 11/30/2019 [facility] 5-325 mg 10/23/2019 12:00:00 AM EDT tablet 90 TAKE ONE TABLET BY MOUTH THREE TIMES A DAY NEEDED MAXIMUM DAILY DOSE = 3 TABLETS TAKE ONE TABLET BY MOUTH THREE TIMES A DAY NEEDED MAXIMUM DAILY DOSE = 3 TABLETS SOLD: 10/23/2019 [facility] Acetaminophen 325 MG / Hydrocodone Kwesi trate 5 MG Oral Tablet Hydrocodone- Acetaminophen 5-325 MG Hydrocodone-Acetaminophen 5-325 MG 10/23/2019 12:00:00 AM EDT 1.0 {tablet_as_needed} active Hydrocodone-Acetaminophen 5-325 MG eCW1 ([facility]) Acetaminophen 325 MG / Hydrocodone Kwesi trate 5 MG Oral Tablet Hydrocodone- Acetaminophen 5-325 MG Hydrocodone-Acetaminophen 5-325 MG 10/22/2019 12:00:00 AM EDT 1.0 {tablet_as_needed} active Hydrocodone-Acetaminophen 5-325 MG eCW1 ([facility]) 5-325 mg 09/13/2019 12:00:00 AM EDT tablet 90 TAKE ONE TABLET BY MOUTH THREE TIMES A DAY NEEDED MAXIMUM DAILY DOSE = 3 TAKE ONE TABLET BY MOUTH THREE TIMES A DAY NEEDED MAXIMUM DAILY DOSE = 3 SOLD: 09/18/2019 [facility] Acetaminophen 325 MG / Hydrocodone Kwesi trate 5 MG Oral Tablet Hydrocodone- Acetaminophen 5-325 MG Hydrocodone-Acetaminophen 5-325 MG 09/13/2019 12:00:00 AM EDT active 1 tablet as neede d eCW1 ([facility]) 5-325 mg 08/09/2019 12:00:00 AM EDT tablet 90 TAKE ONE TABLET BY MOUTH THREE TIMES A DAY NEEDED MAXIMUM DAILY DOSE = 3 TABLETS TAKE ONE TABLET BY MOUTH THREE TIMES A DAY NEEDED MAXIMUM DAILY DOSE = 3 TABLETS SOLD: 08/10/2019 [facility] Acetaminophen 325 MG / Hydrocodone Kwesi trate 5 MG Oral Tablet Hydrocodone- Acetaminophen 5-325 MG Hydrocodone-Acetaminophen 5-325 MG 08/09/2019 12:00:00 AM EDT active 1 tablet as neede d eCW1 ([facility]) 5-325 mg 07/10/2019 12:00:00 AM EDT tablet 90 TAKE ONE TABLET BY MOUTH THREE TIMES A DAY NEEDED MAXIMUM DAILY DOSE = 3 TAKE ONE TABLET BY MOUTH THREE TIMES A DAY NEEDED MAXIMUM DAILY DOSE = 3 SOLD: 07/14/2019 [facility] Acetaminophen 325 MG / Hydrocodone Kwesi trate 5 MG Oral Tablet Hydrocodone- Acetaminophen 5-325 MG Hydrocodone-Acetaminophen 5-325 MG 07/10/2019 12:00:00 AM EDT active 1 tablet as neede d eCW1 ([facility]) Acetaminophen 325 MG / Hydrocodone Kwesi trate 5 MG Oral Tablet Hydrocodone- Acetaminophen 5-325 MG Hydrocodone-Acetaminophen 5-325 MG 05/31/2019 12:00:00 AM EST active 1 tablet as neede d eCW1 ([facility]) 5-325 mg 05/31/2019 12:00:00 AM EST tablet 90 TAKE ONE TABLET BY MOUTH THREE TIMES A DAY NEEDED MAXIMUM DAILY DOSE = 3 TABLETS TAKE ONE TABLET BY MOUTH THREE TIMES A DAY NEEDED MAXIMUM DAILY DOSE = 3 TABLETS SOLD: 06/11/2019 [facility] 17 gram/dose 05/10/2019 12:00:00 AM EST powder [address] KUHN TO BE USE FOR PREP USE BY DR KUHN TO BE USE FOR PREP SOLD: 06/11/2019 [facility] magnesium citrate 58.2 MG/ML Oral Solution Magnesium Citrate 05/09/2019 12:00:00 AM EST active MEDENT ([facility], ) MAGNESIUM CITRATE 05/09/2019 12:00:00 AM EST solution 296 TAKE 1 10 OUNCE BOTTLE PRIOR TO PROCEDURE FOR ADDITIONAL BOWEL PREP PER INSTRUCTIONS TAKE 1 10 OUNCE BOTTLE PRIOR TO PROCEDURE FOR ADDITIONAL BOWEL PREP PER INSTRUCTIONS SOLD: 06/11/2019 [facility] POLYETHYLENE GLYCOL 3350 142 MG/ML Oral Solution [Miralax] M iralax 05/09/2019 12:00:00 AM EST active M EDENT ([facility], ) 90 mcg/actuation 05/03/2019 12:00:00 AM EST HFA aerosol inha ler 8 INHALE TWO PUFFS BY MOUTH EVERY 6 HOURS NEEDED FOR COUGH INHALE TWO PUFFS BY MOUTH EVERY 6 HOURS NEEDED FOR COUGH SOLD: 05/03/2019 [facility] 200 ACTUAT Albuterol 0.09 MG/ACTUAT Mete red Dose Inhaler [Proventil] Proventil HFA 108 (90 Base) MCG/ACT Proventil HFA 108 (90 Base) MCG/ACT 05/03/2019 12:00:00 AM EST 2.0 {puffs_as_needed} active Proventil HFA 108 (90 Base) MCG/ACT eCW1 ([facility]) 200 ACTUAT Albuterol 0.09 MG/ACTUAT Mete red Dose Inhaler [Proventil] Proventil HFA 108 (90 Base) MCG/ACT Proventil HFA 108 (90 Base) MCG/ACT 05/03/2019 12:00:00 AM EST active 2 puffs as needed eCW1 ([facility]) 200 ACTUAT Albuterol 0.09 MG/ACTUAT Mete red Dose Inhaler [Proventil] Proventil HFA 108 (90 Base) MCG/ACT Proventil HFA 108 (90 Base) MCG/ACT 05/03/2019 12:00:00 AM EST 2.0 {puffs_as_needed} active Proventil HFA 108 (90 Base) MCG/ACT eCW1 ([facility]) 200 ACTUAT Albuterol 0.09 MG/ACTUAT Mete red Dose Inhaler [Proventil] Proventil HFA 108 (90 Base) MCG/ACT Proventil HFA 108 (90 Base) MCG/ACT 05/03/2019 12:00:00 AM EST 2.0 {puffs_as_needed} active Proventil HFA 108 (90 Base) MCG/ACT eCW1 ([facility]) 200 ACTUAT Albuterol 0.09 MG/ACTUAT Mete red Dose Inhaler [Proventil] Proventil HFA 108 (90 Base) MCG/ACT Proventil HFA 108 (90 Base) MCG/ACT 05/03/2019 12:00:00 AM EST 2.0 {puffs_as_needed} active Proventil HFA 108 (90 Base) MCG/ACT eCW1 ([facility]) PredniSONE 10 MG (48) PredniSONE 10 MG (48) 05/03/2019 12:00:00 AM EST active PredniSONE 10 MG (48) eCW1 ( [facility]) PredniSONE 10 MG (48) PredniSONE 10 MG (48) 05/03/2019 12:00:00 AM EST active PredniSONE 10 MG (48) eCW1 ( [facility]) PredniSONE 10 MG (48) PredniSONE 10 MG (48) 05/03/2019 12:00:00 AM EST active 30 bid 4d, 20 bid 4d, 10 bid 4d eCW1 ([facility]) 200 ACTUAT Albuterol 0.09 MG/ACTUAT Mete red Dose Inhaler [Proventil] Proventil HFA 108 (90 Base) MCG/ACT Proventil HFA 108 (90 Base) MCG/ACT 05/03/2019 12:00:00 AM EST 2.0 {puffs_as_needed} active Proventil HFA 108 (90 Base) MCG/ACT eCW1 ([facility]) Azithromycin 500 MG Oral Tablet Azithromycin 500 MG 05/03/2019 1 2:00:00 AM EST active 1 tablet eCW1 ([facility]) 200 ACTUAT Albuterol 0.09 MG/ACTUAT Mete red Dose Inhaler [Proventil] Proventil HFA 108 (90 Base) MCG/ACT Proventil HFA 108 (90 Base) MCG/ACT 05/03/2019 12:00:00 AM EST 2.0 {puffs_as_needed} active Proventil HFA 108 (90 Base) MCG/ACT eCW1 ([facility]) 200 ACTUAT Albuterol 0.09 MG/ACTUAT Mete red Dose Inhaler [Proventil] Proventil HFA 108 (90 Base) MCG/ACT Proventil HFA 108 (90 Base) MCG/ACT 05/03/2019 12:00:00 AM EST 2.0 {puffs_as_needed} active Proventil HFA 108 (90 Base) MCG/ACT eCW1 ([facility]) 200 ACTUAT Albuterol 0.09 MG/ACTUAT Mete red Dose Inhaler [Proventil] Proventil HFA 108 (90 Base) MCG/ACT Proventil HFA 108 (90 Base) MCG/ACT 05/03/2019 12:00:00 AM EST 2.0 {puffs_as_needed} active Proventil HFA 108 (90 Base) MCG/ACT eCW1 ([facility]) 200 ACTUAT Albuterol 0.09 MG/ACTUAT Mete red Dose Inhaler [Proventil] Proventil HFA 108 (90 Base) MCG/ACT Proventil HFA 108 (90 Base) MCG/ACT 05/03/2019 12:00:00 AM EST 2.0 {puffs_as_needed} active Proventil HFA 108 (90 Base) MCG/ACT eCW1 ([facility]) PredniSONE 10 MG (48) PredniSONE 10 MG (48) 05/03/2019 12:00:00 AM EST active PredniSONE 10 MG (48) eCW1 ( [facility]) 200 ACTUAT Albuterol 0.09 MG/ACTUAT Mete red Dose Inhaler [Proventil] Proventil HFA 108 (90 Base) MCG/ACT Proventil HFA 108 (90 Base) MCG/ACT 05/03/2019 12:00:00 AM EST 2.0 {puffs_as_needed} active Proventil HFA 108 (90 Base) MCG/ACT eCW1 ([facility]) Azithromycin 500 MG Oral Tablet Azithromycin 500 MG 05/03/2019 1 2:00:00 AM EST 1.0 {tablet} active Azithromyci n 500 MG eCW1 ([facility] Includes [facility]) Azithromycin 500 MG Oral Tablet Azithromycin 500 MG 05/03/2019 1 2:00:00 AM EST 1.0 {tablet} active Azithromyci n 500 MG eCW1 (Count Includes [facility]) 200 ACTUAT Albuterol 0.09 MG/ACTUAT Mete red Dose Inhaler [Proventil] Proventil HFA 108 (90 Base) MCG/ACT Proventil HFA 108 (90 Base) MCG/ACT 05/03/2019 12:00:00 AM EST 2.0 {puffs_as_needed} active Proventil HFA 108 (90 Base) MCG/ACT eCW1 (Count Includes [facility]) 200 ACTUAT Albuterol 0.09 MG/ACTUAT Mete red Dose Inhaler [Proventil] Proventil HFA 108 (90 Base) MCG/ACT Proventil HFA 108 (90 Base) MCG/ACT 05/03/2019 12:00:00 AM EST 2.0 {puffs_as_needed} active Proventil HFA 108 (90 Base) MCG/ACT eCW1 (Count Includes [facility]) 200 ACTUAT Albuterol 0.09 MG/ACTUAT Mete red Dose Inhaler [Proventil] Proventil HFA 108 (90 Base) MCG/ACT Proventil HFA 108 (90 Base) MCG/ACT 05/03/2019 12:00:00 AM EST 2.0 {puffs_as_needed} active Proventil HFA 108 (90 Base) MCG/ACT eCW1 (Count Includes [facility]) 10 mg 05/03/2019 12:00:00 AM EST tablet 48 TAKE THREE TABLETS BY MOUTH TWICE A DAY FOR 4 DAYS THEN 2 TWO TIMES A DAY FOR 4 DAYS THEN 1 TWO TIMES A DAY FOR 4 DAYS TAKE THREE TABLETS BY MOUTH TWICE A DAY FOR 4 DAYS THEN 2 TWO TIMES A DAY FOR 4 DAYS THEN 1 TWO TIMES A DAY FOR 4 DAYS SOLD: 05/03/2019 [facility] 500 mg 05/03/2019 12:00:00 AM EST tablet 10 TAKE ONE TABLET BY MOUTH EVERY DAY FOR 10 DAYS TAKE ONE TABLET BY MOUTH EVERY DAY FOR 10 DAYS SOLD: 020 [facility] Azithromycin 500 MG Oral Tablet Azithromycin 500 MG 05/03/2019 1 2:00:00 AM EST 1.0 {tablet} active Azithromyci n 500 MG eCW1 (Count Includes [facility]) 200 ACTUAT Albuterol 0.09 MG/ACTUAT Mete red Dose Inhaler [Proventil] Proventil HFA 108 (90 Base) MCG/ACT Proventil HFA 108 (90 Base) MCG/ACT 05/03/2019 12:00:00 AM EST 2.0 {puffs_as_needed} active Proventil HFA 108 (90 Base) MCG/ACT eCW1 (Count Includes [facility]) 200 ACTUAT Albuterol 0.09 MG/ACTUAT Mete red Dose Inhaler [Proventil] Proventil HFA 108 (90 Base) MCG/ACT Proventil HFA 108 (90 Base) MCG/ACT 05/03/2019 12:00:00 AM EST 2.0 {puffs_as_needed} active Proventil HFA 108 (90 Base) MCG/ACT eCW1 (Count Includes [facility]) Insurance Providers Payer name Policy type / Coverage type Policy ID Covered alliance party ID Covered alliance party's relationship to padron Policy Padron Plan Information [facility] [id number] ANSI-Commercial [id number] ANSI-Commercial [id number] ANSI-Commercial [id number] ANSI-Commercial [id number] ANSI-Commercial [id number]-u709-5045-oxo2-85943x3vfgg9 789w95i5-k638-9270-akz6-86868t4sjos2 ANSI-Commercial [id number]-8r74-508j-[id number] 3oh28z0r-9a95-992m-u2o3-327d978khxv6 ANSI-Commercial [id number]-2r2d-pd42-248548q69w4k 190ur399-043b-3o2g-cs88-949381s62h9o ANSI-Commercial [id number]-n882-1332-3g57-63ds7gvi78qt [id number]-t968-7884-9w65-41lq5hdc39vc ANSI-Commercial ouip358k-3zu9-19o9-an3y-5deq19c595xh teew740m-5aj1-15l5-it4y-9eom31a212on ANSI-Commercial [id number]-po9q-[id number] 0t35t2jr-re9q-[id number] [facility] [id number] ANSI-Commercial [id number]-c8j0-0p93-xw6b-400f7k802utu x830k863-u4u3-3m60-dz3d-732k1b104qrn ANSI-Commercial 27i6l3z3-390i-7dnx-2827-ce5g85837zuq 51k6r5s9-140r-7phm-4078-jd6t67334zpd ANSI-Commercial 1862lv3t-8v2x-1701-iho2-9080763026sj 6560po2f-5x4x-4628-fmg2-5893158856ih ANSI-Commercial 9x3293ko-f4yj-13m0-4hs5-60k20j2r3h22 2f6094gm-q0rr-50n2-2mt2-30n16l4u9n59 ANSI-Commercial s66y6u71-88x3-8m79-s483-ujd3139188z9 m33l9p69-50o8-5z62-n832-qlm3761133u5 ANSI-Commercial 28b5zs63-6n8w-03i1-85q9-x0mh02pt3kjf 20r7ep51-1c3g-24i8-20t0-s9gu77gu0kfp ANSI-Commercial 726pq7l8-9tf0-2c05-h6j5-pd8520h267n6 236yc4y2-2ki0-3i14-r4z0-ch5543p969j6 ANSI-Commercial 85qu5r8b-378d-197l-8894-fu2ecooj1xu8 31ix0j2h-267s-789e-3873-ht4liplc4fe6 ANSI-Commercial 82v3nnx6-j852-0824-6p36-56ehks65x910 08c2lsr3-v627-8223-4e95-92zjvf73f454 ANSI-Commercial 1iw00y84-x7ve-70j6-7f1c-qp87v58728w9 1sw50n96-q2zq-33k7-6g1y-dl10q16602y9 ANSI-Commercial x50g534z-63p3-5qq3-c5l7-0892bkthy70f s41h315n-79w9-5mr9-e6t4-6257pwbux04f ANSI-Commercial x1wn18ds-426m-8735-132d-sjr613040s7k d0uv07oi-421k-2289-506m-rns802115v6c ANSI-Commercial 060l1268-31eh-6q53-6g3j-72274541hb57 267v2306-95sg-0o09-1u3t-86969629hl77 ANSI-Commercial 4233xvm7-49fn-2414-i4g4-5312kk1a0963 9394vwl4-88yj-2930-j8i2-4140ob4u4411 ANSI-Commercial g8h3c625-y1f6-78mw-arfx-15845c7x609w x3t4j154-u4h4-02ai-ynpg-21999a8e542w ANSI-Commercial nplm2950-4xjr-3gtl-te1e-ns374qu8089k qbny6672-3yrq-8toc-qh5a-ui839zg4305l ANSI-Commercial ng5s1ex1-111o-270h-5v0k-793jq6x95686 ym5d0dp3-419n-728u-0i8x-738dt7e38498 ANSI-Commercial x775um17-1o59-66l6-tsz6-r76gorr431xc q965qg50-4w17-28b4-ljq0-x00itzj539sv ANSI-Commercial 73jr5zu6-71ad-7d06-2h8b-js716h5lc0f1 14mi0wy1-07aj-8d64-0w4q-vo848i4oq5q7 ANSI-Commercial e6j31g11-ls5f-07kq-49eq-5n121252w6g4 r5f59c26-kc0j-90ra-71me-9h411667v2d7 ANSI-Commercial wu06847c-q8ts-0op0-u03g-3dvh6ja29h20 go32935h-c0gx-9al3-d45t-3fbs4st66d94 ANSI-Commercial 7t3359z0-0342-1ug5-n635-07869qh58k9i 2n8001l8-6448-7qj7-f201-46382re56k2s ANSI-Commercial 6030wzi9-69q4-8182-0899-9803b260o673 7333xov2-83k0-8668-1851-6742b754h572 ANSI-Commercial 36904665-6562-8520-84h1-c77v7cs098b1 98344022-1542-0606-38c2-v95g1ml367b2 ANSI-Commercial 6p7wjg07-h3h6-3wx6-xka3-3698172775x3 4v4vkk99-d7n7-2je9-rxy4-3277094627u0 ANSI-Commercial 860z14xo-2fj4-24xz-q3pz-cql3h18e1917 793k08un-6sj4-10jy-u4ul-xpk3d33f6433 ANSI-Commercial 79w10y4r-gpfd-8e5c-1il6-94m39u7a8168 70l62r8u-eluz-2a0q-3nx6-79d05n6f8799 ANSI-Commercial 91275mz3-8031-1r43-orj6-haaa72960m14 48285zi5-7704-9s61-qlg8-kiuk67316t52 ANSI-Commercial fb7cq102-k916-45dn-19oe-z99518084u44 rr2ny547-v587-63vl-25ud-m10121525r97 ANSI-Commercial 0953706e-79p9-5693-flun-8n152353al89 8718072f-60y5-3332-wuhj-6d332760na98 ANSI-Commercial jzl7357m-0l41-4r79-225k-ve76jux358nj dyi7702k-5v04-3o74-051r-nv22wpw892ul ANSI-Commercial 33p32qpc-95g0-83p4-fabu-6u56n05w2y30 40f35peo-03t2-79f0-kysg-4i93p27h1n25 ANSI-Commercial mvc84m8k-e1k1-1od4-zqmn-3v29x6fek41d nnk10b1b-e4c7-4vo1-jpkh-3h27n3zrl99l ANSI-Commercial 42oo2584-1s27-2028-em83-7ztb945572yi 60ti5345-6q90-8657-me31-4erd543260oc ANSI-Commercial 038g2575-21ye-70ze-1721-j6l1277c4315 996y0240-07nx-55un-9189-g0e2588g7640 ANSI-Commercial qy9aoh00-0177-5b77-j8lz-5m34r8844r82 by0dgg14-6372-2k66-k5tz-2o24y3767x65 ANSI-Commercial y7404995-c638-26u2-rr21-er6shaxcuh69 q3750360-j261-91s9-cz91-bc0exvigoo25 ANSI-Commercial 8ki0l912-h0v5-44g9-11i4-j6030l126e8h 1xg9k140-h5b1-22c9-33m9-e7951a769f0x ANSI-Commercial zz6kgqh2-v48m-4zn2-b474-9a7s874k9hq0 dq1iyga2-h21g-5cf7-e790-7k8k304s8ps9 ANSI-Commercial di1z552w-47va-945t-y10h-9p2r5ikn2m6j af6k494d-47se-817a-h09g-8v1r3emt2p7n ANSI-Commercial 87f02d9g-q0s3-44q7-13e7-74g932958t9t 94m34c8m-s3n9-81p7-97d3-02u927635x5i ANSI-Commercial 6c07454o-3nz8-67c1-3014-1297l3043ho8 5g43962u-2cx2-75y8-8746-0118c7033dw0 [employer] [id number] SP [id number] [employer] [id number] SP [id number] [employer] [id number] Self [id number] [employer] PPO O [id number] S [id number] [employer] [id number] SP [id number] [employer] [id number] SP [id number] [employer] [id number] April [id number] [employer] ([employer]) Se lf MEDICARE [id number] SP [id number] A POM[employer] U [id number] Self [id number] MEDICARE P [id number] S [id number] A KO[employer] CLAIMS ADM 8 [id number] BR [id number] [employer] CLAIM ADM 8 [id number] [id number] MEDICARE 4 [id number] 1 [id number] A Problems, Conditions, and Diagnoses Code Display Name Description Problem Type Effective Dates Data Source(s) M85.80 565238673 Borderline osteopenia Problem 02/29/2020 12: 00:00 AM EDT eCW1 ([facility] Includes [facility]) J45.20 730827190 Mild intermittent asthma without complica tion Problem 02/29/2020 12:00:00 AM EDT eCW1 (Count Includes [facility]) F17.200 Tobacco user Nicotine addiction Problem 02/29/2020 12:0 0:00 AM EDT eCW1 (Count Includes [facility]) [id number] Type 2 diabetes mellitus Type 2 diabetes mellitus Prob darinel 05/09/2019 12:00:00 AM EST MEDENT ([facility], ) J45.21 582101992 Mild intermittent asthma with acute exace rbation Problem 05/03/2019 12:00:00 AM EST eCW1 (Count Includes [facility]) J45.21 283280193 Mild intermittent asthma with acute exace rbation Problem 05/03/2019 12:00:00 AM EST eCW1 (Count Includes [facility]) Surgeries/Procedures Procedure Description Date Indications Data Source(s) Immunization: Flublok Quadrivalent (18 years & older) 0.5mL IM (Influenza) 02/29/2020 12:00:00 AM EDT eCW1 ([facility]) Endoscopy Upper GI Complex Diagnostic 11/23/2019 12:00 :00 AM EDT MEDENT ([facility], ) Colonoscopy W/ Poly 11/23/2019 12:00:00 AM EDT MEDENT ([facility]) Injection, methylprednisolone acetate, 40 mg 0 12:00:00 AM EST eCW1 ([facility] Includes [facility]) Injection, methylprednisolone acetate, 80 mg 0 12:00:00 AM EST eCW1 (Count Includes [facility]) THER/PROPH/DIAG INJ, SC/IM 05/03/2019 12:00:00 AM EST eCW1 (Count Includes [facility]) Results ID Date Data Source PLZ TIBIA/FIBULA AP,LAT 03/05/2020 09:59:42 AM EST eCW1 ([facility]) Name Value Range Interpretation Code Description Data Moon rce(s) Supporting Document(s) PLZ TIBIA/FIBULA AP,LAT eCW1 ( Count Includes [facility]) ID Date Data Source [id number] 11/23/2019 10:00:00 AM EDT MEDENT ([facility], ) Name Value Range Interpretation Code Description Data Moon rce(s) Supporting Document(s) Surgical pathology study [facility] FINAL DIAGNOSIS Ileocecal valve polyp, polypectomy: Tubular adenoma. 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 All in one. 12/26/2019806 Signed DEBORAH AGUIAR MD 12/26/2019806 ID Date Data Source [id number] 11/18/2019 09:15:00 AM EDT [facility] Name Value Range Interpretation Code Description Data Moon rce(s) Supporting Document(s) SARS coronavirus 2 RNA [facility] This lab was ordered by [facility] and reported by [facility]. Procedure Social History Code Duration Value Status Description Data Source(s ) Smoking 02/29/2020 12:00:00 AM EDT Former Smoker completed Former Smoker eCW1 ([facility] Includes [facility]) Smoking 02/29/2020 12:00:00 AM EDT Former Smoker completed Former Smoker eCW1 ([facility] Includes [facility]) Smoking 02/29/2020 12:00:00 AM EDT Former Smoker completed Former Smoker eCW1 ([facility] Includes [facility]) Smoking 02/29/2020 12:00:00 AM EDT Former Smoker completed Former Smoker eCW1 ([facility] Includes [facility]) Smoking 02/29/2020 12:00:00 AM EDT Former Smoker completed Former Smoker eCW1 ([facility] Includes [facility]) Smoking 02/29/2020 12:00:00 AM EDT Former Smoker completed Former Smoker eCW1 ([facility] Includes [facility]) Smoking 02/29/2020 12:00:00 AM EDT Former Smoker completed Former Smoker eCW1 ([facility] Includes [facility]) Smoking 02/29/2020 12:00:00 AM EDT Former Smoker completed Former Smoker eCW1 ([facility] Includes [facility]) Smoking 02/29/2020 12:00:00 AM EDT Former Smoker completed Former Smoker eCW1 ([facility] Includes [facility]) Smoking 02/29/2020 12:00:00 AM EDT Former Smoker completed Former Smoker eCW1 ([facility] Includes [facility]) Smoking 02/29/2020 12:00:00 AM EDT Former Smoker completed Former Smoker eCW1 ([facility] Includes [facility]) Smoking 02/29/2020 12:00:00 AM EDT Former Smoker completed Former Smoker eCW1 ([facility] Includes [facility]) Smoking 05/03/2019 12:00:00 AM EST Former Smoker completed Former Smoker eCW1 ([facility] Includes [facility]) Smoking 05/03/2019 12:00:00 AM EST Former Smoker completed Former Smoker eCW1 ([facility] Includes [facility]) Smoking 05/03/2019 12:00:00 AM EST Former Smoker completed Former Smoker eCW1 (Count Includes [facility]) Vital Signs ID Date Data Source UNK Name Value Range Interpretation Code Description Data Source(s) Diastolic blood pressure 78 mm[Hg] 78 mm[Hg] eCW1 ([facility] Includes [facility]) Systolic blood pressure 128 mm[Hg] 128 mm[Hg] e CW1 ([facility] Includes [facility]) Body temperature 98.1 [degF] 98.1 [degF] eCW1 ( Count Includes [facility]) Respiratory rate 20 /min 20 /min eCW1 ([facility]) Heart rate 93 /min 93 /min eCW1 ([facility]) Body mass index (BMI) [Ratio] 39.22 kg/m2 39.22 kg/m2 W1 (Count Includes [facility]) Body height 66 [in_i] 66 [in_i] eCW1 ([facility]) Body weight 243 [lb_av] 243 [lb_av] W1 ([facility]) Body weight 111.132 kg 111.132 kg MEDENT ([facility], ) [place] body weight 130 [lb_av] 130 [lb_av] MEDEN T ([facility], ) Body mass index (BMI) [Ratio] 39.5 kg/m2 39.5 k g/m2 MEDENT ([facility]) Body weight 245.00 [lb_av] 245.00 [lb_av] MEDEN T ([facility]) Body height 66 [in_i] 66 [in_i] [facility] ([facility]) 5'6" Diastolic blood pressure 64 mm[Hg] 64 mm[Hg] [facility] ([facility]) Systolic blood pressure 104 mm[Hg] 104 mm[Hg] [facility] Body weight 110.225 kg 110.225 kg [facility] ([facility]) [place] body weight 130 [lb_av] 130 [lb_av] MEDEN T ([facility]) Body mass index (BMI) [Ratio] 39.2 kg/m2 39.2 k g/m2 [facility] ([facility]) Body weight 243.00 [lb_av] 243.00 [lb_av] MEDEN T ([facility]) Body height 66 [in_i] 66 [in_i] [facility] ([facility]) 5'6" Diastolic blood pressure 82 mm[Hg] 82 mm[Hg] [facility] ([facility]) Systolic blood pressure 122 mm[Hg] 122 mm[Hg] M [facility] ([facility]) Diastolic blood pressure 80 mm[Hg] 80 mm[Hg] eCW1 ([facility] Includes [facility]) Systolic blood pressure 142 mm[Hg] 142 mm[Hg] e CW1 ([facility] Includes [facility]) Body temperature 98.0 [degF] 98.0 [degF] eCW1 ( Count Includes [facility]) Respiratory rate 18 /min 18 /min eCW1 ([facility]) Heart rate 101 /min 101 /min eCW1 ([facility]) Body mass index (BMI) [Ratio] 39.70 kg/m2 39.70 kg/m2 W1 (Count Includes [facility]) Body height 66 [in_us] 66 [in_us] eCW1 ([facility]) Body weight Measured 246 [lb_av] 246 [lb_av] eC W1 (Count Includes [facility]) Patient Treatment Plan of Care Planned Activity Planned Date Details Description Data Source (s) Acetaminophen 325 MG / Hydrocodone Bitartrate 5 MG Ora l Tablet 05/13/2020 12:00:00 AM EST eCW1 ([facility]) Acetaminophen 325 MG / Hydrocodone Bitartrate 5 MG Ora l Tablet 05/13/2020 12:00:00 AM EST eCW1 ([facility]) Acetaminophen 325 MG / Hydrocodone Bitartrate 5 MG Ora l Tablet 04/03/2020 12:00:00 AM EST eCW1 ([facility]) Acetaminophen 325 MG / Hydrocodone Bitartrate 5 MG Ora l Tablet 04/03/2020 12:00:00 AM EST eCW1 ([facility]) Acetaminophen 325 MG / Hydrocodone Bitartrate 5 MG Ora l Tablet 04/03/2020 12:00:00 AM EST eCW1 ([facility]) Acetaminophen 325 MG / Hydrocodone Bitartrate 5 MG Ora l Tablet 04/03/2020 12:00:00 AM EST eCW1 ([facility]) Acetaminophen 325 MG / Hydrocodone Bitartrate 5 MG Ora l Tablet 02/21/2020 12:00:00 AM EDT eCW1 ([facility]) Acetaminophen 325 MG / Hydrocodone Bitartrate 5 MG Ora l Tablet 10/23/2019 12:00:00 AM EDT eCW1 ([facility]) Acetaminophen 325 MG / Hydrocodone Bitartrate 5 MG Ora l Tablet 10/22/2019 12:00:00 AM EDT eCW1 ([facility]) Acetaminophen 325 MG / Hydrocodone Bitartrate 5 MG Ora l Tablet 09/13/2019 12:00:00 AM EDT eCW1 ([facility]) Acetaminophen 325 MG / Hydrocodone Bitartrate 5 MG Ora l Tablet 08/09/2019 12:00:00 AM EDT eCW1 ([facility]) Acetaminophen 325 MG / Hydrocodone Bitartrate 5 MG Ora l Tablet 07/10/2019 12:00:00 AM EDT eCW1 ([facility]) Acetaminophen 325 MG / Hydrocodone Bitartrate 5 MG Ora l Tablet 05/31/2019 12:00:00 AM EST eCW1 ([facility]) PredniSONE 10 MG (48) 05/03/2019 12:00:00 AM EST eCW1 ([facility] Includes [facility]) Azithromycin 500 MG Oral Tablet 05/03/2019 12:00:00 AM EST eCW1 ([facility] Includes [facility]) 200 ACTUAT Albuterol 0.09 MG/ACTUAT Metered Dose Inhal er [Proventil] 05/03/2019 12:00:00 AM EST eCW1 ([facility]) PredniSONE 10 MG (48) 05/03/2019 12:00:00 AM EST eCW1 ([facility] Includes [facility]) 200 ACTUAT Albuterol 0.09 MG/ACTUAT Metered Dose Inhal er [Proventil] 05/03/2019 12:00:00 AM EST eCW1 ([facility]) PredniSONE 10 MG (48) 05/03/2019 12:00:00 AM EST eCW1 ([facility] Includes [facility]) Azithromycin 500 MG Oral Tablet 05/03/2019 12:00:00 AM EST eCW1 ([facility] Includes [facility]) Azithromycin 500 MG Oral Tablet 05/03/2019 12:00:00 AM EST eCW1 ([facility] Includes [facility]) 200 ACTUAT Albuterol 0.09 MG/ACTUAT Metered Dose Inhal er [Proventil] 05/03/2019 12:00:00 AM EST eCW1 ([facility]) PredniSONE 10 MG (48) 05/03/2019 12:00:00 AM EST eCW1 ([facility] Includes [facility]) Azithromycin 500 MG Oral Tablet 05/03/2019 12:00:00 AM EST eCW1 ([facility] Includes [facility]) 200 ACTUAT Albuterol 0.09 MG/ACTUAT Metered Dose Inhal er [Proventil] 05/03/2019 12:00:00 AM EST eCW1 ([facility])
--- OUTSIDE RECORDS SUMMARY | 2020-06-25 10:55 | CCD ---
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 Name Role Phone Cedrick Solares Unavailable PROBLEMS Type Condition ICD9-CM Code AIW16-FT Code Onset Dates Condition S tatus SNOMED Code Notes Problem DJD (degenerative joint disease), lumbar M47.816 Active 440648623 Problem Hyperlipidemia E78.5 Active 14688396 Problem Hypertension I10 Active 51490058 Problem Hypothyroid E03.9 Active 42053770 Problem Hx of hysterectomy for benign disease Z90.710 Ac tive 390496887 Problem Iron deficiency anemia, unspecified iron deficiency an emia type D50.9 Active 81721122 Problem Irritable bowel syndrome with diarrhea K58.0 A ctive 921551807 Problem Gastroparesis K31.84 Active 180565587 Problem History of pulmonary embolus (PE) Z86.711 Active 758322861 Problem 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 Active 373854838 Problem CORTES (obstructive sleep apnea) G47.33 Active 78 213336 Problem Non morbid obesity due to excess calories E66.09 Active 666268601 Problem Chronic diastolic congestive heart failure I50.32 Active 466875002 Problem B12 deficiency E53.8 Active 229366594 Problem Diabetes mellitus type 2, noninsulin dependent E11 .9 Active 322566792 Problem Cervical cancer screening Z12.4 Active 816139 001 Problem Vitamin D deficiency E55.9 Active 39204860 Problem Nicotine addiction F17.200 Active 664385250 Problem H/O adenomatous polyp of colon Z86.010 Active 4 25469921 Problem Mild intermittent asthma without complication J45. 20 Active 403673042 Problem GERD (gastroesophageal reflux disease) K21.9 A ctive 178083945 Problem Breast cancer screening Z12.39 Active 64167951 6 Problem Non-seasonal allergic rhinitis, unspecified trigger J30.89 Active 93904856 Problem Venous insufficiency of both lower extremities I87 .2 Active 152465805 Problem Mild intermittent asthma with acute exacerbation J 45.21 Active 752875646 Problem Borderline osteopenia M85.80 Active 703161701 ALLERGIES Allergen (clinical drug ingredient) Drug/Non Drug Allergy do cumented on EMR Reaction Allergy Type Onset Date Status codeine Codeine Sulfate([facility] Code:[address]-40) reflux Drug Al lergy Active varenicline Chantix([facility] Code:[address]-25) Nausea Drug Allergy Active lisinopril Lisinopril([facility] Code:[address]-09) cough Drug Allergy Active ENCOUNTERS from 1960 to 2020-04-04 Encounter Location Date Provider Diagnosis [address] [address] Apr, 020 [place] ORTIZD (degenerative joint disease), lumbar M47.816 [...] Associates Language: Question Answer Notes Languages spoken: Spanish Congregational: Question Answer Notes Congregational 05 [employer] Sexual Hx: Question Answer Notes Had sex [...] Start Da te End Date Status Ergocalciferol 24150 UNIT 1 capsule Orally weekly Active Blood [...] 30 day(s) Apr, Active BD Ultra-fine Pen [place] 32G 4mm as directed DX :E 11.9 [...] and tubing DX: G47.33 at bedtime for days Mar, Active Proventil HFA 108 (90 Base) MCG/ACT 2 puffs as needed Inhalation every 6 hrs prn cough for 30 Days May, Active Carafate 1 GM 1 tablet on an empty stomach Orally Twice a day for 9 0 day(s) Active Stockings Bilateral below the knee compression stockings 15-20 mmHg daily Active PROCEDURES No Information RESULTS No Results REASON FOR VISIT Hydrocodone-Acetaminophen 5-325 MG Tablet MEDICAL (GENERAL) HISTORY Type Description Date Medical [...] [place]-03/2014 LS MRI stable post-op changes s stenosis/protrusion/11/2014 NCS B mild chronic L5/S1 radiculopathy-[facility] Medical History thoracic DJD-mild diffuse c [...] Treatment Notes Treatm ent Clinical Notes Apr, DJD (degenerative joint disease), lumbar (ICD-10 [...] MDD 3 for 30 day(s) Apr, Ergocalciferol 19604 UNIT 1 capsule Orally weekly Insurance Providers Payer Name Payer Address Payer Phone Insured Name Patient Relati onship to Insured Coverage Start Date Coverage End Date [facility] [id number] [employer] [id number] LIOR DUNH[place] self
--- OUTSIDE RECORDS SUMMARY | 2020-06-25 11:34 | CCD ---
Author Author [facility] Organization [facility] Address Unknown Phone Unavailable Care Team Providers Care Gynecology Teacher Name Role Phone Charlebois, A [place] RPA [...] is protected by Article 27-F of the [place] State Public Health law. If you continue you may have access to information: Regarding HIV / AIDS; Provided by facilities licensed or operated by the [facility] Office of Mental Health; or Provided by the [facility] Office for People With Developmental Disabilities. If such information is present, then the following [facility] mandated warning applies: This information has [...] law may result in a fine or correction sentence or both. A general authorization for the release of medical or other information is NOT sufficient authorization for further disc losure. Allergies and Adverse Reactions Type Description Substance Reaction Status Data Source(s ) lisinopril Lisinopril Lisinopril cough Active eCW1 ([facility]) Drug allergy Chantix varenicline Nausea Active eCW1 ([facility]) Codeine Sulfate Codeine Sulfate Codeine Sulfate reflux Active eCW1 ([facility]) Drug Allergy NKDA NKDA MEDENT ([facility], ) Family History Family Member Name Family Member Gender Family Member Status Date o f Status Description Data Source(s) Unknown Unknown Problem MEDENT ([facility] mother Unknown Unknown Problem MEDENT ([facility] [place], ) Unknown Unknown Problem MEDENT ([facility], ) Unknown Unknown Problem MEDENT ([facility]) Encounters Encounter Providers Location Date Indications Data Source(s ) Unknown [address] [facility] [place] [address] 05/13/2020 12:00:00 AM EST eCW1 ([facility]) Unknown [address] [facility] [place] [address] 05/12/2020 12:00:00 AM EST eCW1 ([facility]) Unknown [address] [facility] [place] [address] 04/21/2020 12:00:00 AM EST eCW1 ([facility]) Unknown [address] [facility] [place] [address] 04/20/2020 12:00:00 AM EST eCW1 ([facility]) Unknown [address] [facility] [place] [address] 04/03/2020 12:00:00 AM EST eCW1 ([facility]) Unknown [address] [facility] [place] [address] 04/02/2020 12:00:00 AM EST eCW1 ([facility] Unknown [address] [facility] [address] 03/14/2020 12:00:00 AM EST eCW1 ([facility] [place] [address] [facility] [address] 03/11/2020 12:00:00 AM EST [facility]CW1 ([facility]) [place] [address] [facility] [address] 03/10/2020 12:00:00 AM EST eCW1 ([facility]) Unknown [address] [facility] [place] [address] 03/05/2020 12:00:00 AM EST eCW1 ([facility]) Unknown [address] [facility] [address] 03/04/2020 12:00:00 AM EST eCW1 ([facility]) Outpatient [address] [facility] [address] 02/29/2020 12:00:00 AM EDT eCW1 ([facility]) Unknown [address] [facility] [place] [address] 02/20/2020 12:00:00 AM EDT eCW1 ([facility]) [facility] [address] [facility] [place] [address] 11/30/2019 12:00:00 AM EDT eCW1 ([facility]) Unknown [address] [facility] [address] 10/22/2019 12:00:00 AM EDT eCW1 ([facility]) Unknown [address] [facility] [place] [address] 10/22/2019 12:00:00 AM EDT eCW1 ([facility]) Outpatient Attender: [place] López/Ana/Jet moon/Lynda 09/18/2019 08:15:00 AM EDT MEDENT ([facility] TOM Rivas) [facility] [address] [place] [address], [place] [address] 09/12/2019 12:00:00 AM EDT eCW1 ([facility]) [address] [address] 08/08/2019 12:00:00 AM EDT eCW1 ([facility]) [address] [address] 07/19/2019 12:00:00 AM EDT eCW1 ([facility]) [address] [address] 07/10/2019 12:00:00 AM EDT eCW1 ([facility]) [address] [address] 05/30/2019 12:00:00 AM EST eCW1 ([facility]) [address] [address] 05/04/2019 12:00:00 AM EST eCW1 ([facility]) [address] [address] 05/03/2019 12:00:00 AM EST eCW1 ([facility]) Immunizations Vaccine Date Status Description Data Source(s) influenza, recombinant, quadrIvalent,injectable, prese rvative free 02/29/2020 06:46:00 PM EDT completed eCW1 ([facility]) influenza, recombinant, quadrIvalent,injectable, prese rvative free 02/29/2020 06:46:00 PM EDT completed eCW1 ([facility]) influenza, recombinant, quadrIvalent,injectable, prese rvative free 02/29/2020 06:46:00 PM EDT completed eCW1 ([facility]) influenza, recombinant, quadrIvalent,injectable, prese rvative free 02/29/2020 06:46:00 PM EDT completed eCW1 ([facility]) influenza, recombinant, quadrIvalent,injectable, prese rvative free 02/29/2020 06:46:00 PM EDT completed eCW1 ([facility]) influenza, recombinant, quadrIvalent,injectable, prese rvative free 02/29/2020 06:46:00 PM EDT completed eCW1 ([facility]) influenza, recombinant, quadrIvalent,injectable, prese rvative free 02/29/2020 06:46:00 PM EDT completed eCW1 ([facility]) influenza, recombinant, quadrIvalent,injectable, prese rvative free 02/29/2020 06:46:00 PM EDT completed eCW1 ([facility]) influenza, recombinant, quadrIvalent,injectable, prese rvative free 02/29/2020 06:46:00 PM EDT completed eCW1 ([facility]) influenza, recombinant, quadrIvalent,injectable, prese rvative free 02/29/2020 06:46:00 PM EDT completed eCW1 ([facility]) influenza, recombinant, quadrIvalent,injectable, prese rvative free 02/29/2020 06:46:00 PM EDT completed eCW1 ([facility]) influenza, recombinant, quadrIvalent,injectable, prese rvative free 02/29/2020 06:46:00 PM EDT completed eCW1 ([facility]) Depo-Medrol 80mg (Methylprednisolone Acetate) 05/03/2019 05: 41:00 PM EST completed eCW1 ([facility]) Depo-Medrol 80mg (Methylprednisolone Acetate) 05/03/2019 05: 41:00 PM EST completed eCW1 ([facility]) Depo-Medrol 80mg (Methylprednisolone Acetate) 05/03/2019 05: 41:00 PM EST completed eCW1 ([facility]) Depo-Medrol 80mg (Methylprednisolone Acetate) 05/03/2019 05: 41:00 PM EST completed eCW1 ([facility]) Depo-Medrol 80mg (Methylprednisolone Acetate) 05/03/2019 05: 41:00 PM EST completed eCW1 ([facility]) Depo-Medrol 80mg (Methylprednisolone Acetate) 05/03/2019 05: 41:00 PM EST completed eCW1 ([facility]) Depo-Medrol 80mg (Methylprednisolone Acetate) 05/03/2019 05: 41:00 PM EST completed eCW1 ([facility]) Depo-Medrol 80mg (Methylprednisolone Acetate) 05/03/2019 05: 41:00 PM EST completed eCW1 ([facility]) Depo-Medrol 80mg (Methylprednisolone Acetate) 05/03/2019 05: 41:00 PM EST completed eCW1 ([facility]) Depo-Medrol 80mg (Methylprednisolone Acetate) 05/03/2019 05: 41:00 PM EST completed eCW1 ([facility]) Depo-Medrol 80mg (Methylprednisolone Acetate) 05/03/2019 05: 41:00 PM EST completed eCW1 ([facility]) Depo-Medrol 80mg (Methylprednisolone Acetate) 05/03/2019 05: 41:00 PM EST completed eCW1 ([facility]) Depo-Medrol 80mg (Methylprednisolone Acetate) 05/03/2019 05: 41:00 PM EST completed eCW1 ([facility]) Depo-Medrol 80mg (Methylprednisolone Acetate) 05/03/2019 05: 41:00 PM EST completed eCW1 ([facility]) Depo-Medrol 40mg (Methylpredisolone Acetate) 05/03/2019 05:3 9:00 PM EST completed eCW1 ([facility]) Depo-Medrol 40mg (Methylpredisolone Acetate) 05/03/2019 05:3 9:00 PM EST completed eCW1 ([facility]) Depo-Medrol 40mg (Methylpredisolone Acetate) 05/03/2019 05:3 9:00 PM EST completed eCW1 ([facility]) Depo-Medrol 40mg (Methylpredisolone Acetate) 05/03/2019 05:3 9:00 PM EST completed eCW1 ([facility]) Depo-Medrol 40mg (Methylpredisolone Acetate) 05/03/2019 05:3 9:00 PM EST completed eCW1 ([facility]) Depo-Medrol 40mg (Methylpredisolone Acetate) 05/03/2019 05:3 9:00 PM EST completed eCW1 ([facility]) Depo-Medrol 40mg (Methylpredisolone Acetate) 05/03/2019 05:3 9:00 PM EST completed eCW1 ([facility]) Depo-Medrol 40mg (Methylpredisolone Acetate) 05/03/2019 05:3 9:00 PM EST completed eCW1 ([facility]) Depo-Medrol 40mg (Methylpredisolone Acetate) 05/03/2019 05:3 9:00 PM EST completed eCW1 ([facility]) Depo-Medrol 40mg (Methylpredisolone Acetate) 05/03/2019 05:3 9:00 PM EST completed eCW1 ([facility]) Depo-Medrol 40mg (Methylpredisolone Acetate) 05/03/2019 05:3 9:00 PM EST completed eCW1 ([facility]) Depo-Medrol 40mg (Methylpredisolone Acetate) 05/03/2019 05:3 9:00 PM EST completed eCW1 ([facility]) Depo-Medrol 40mg (Methylpredisolone Acetate) 05/03/2019 05:3 9:00 PM EST completed eCW1 ([facility]) Depo-Medrol 40mg (Methylpredisolone Acetate) 05/03/2019 05:3 9:00 PM EST completed eCW1 ([facility]) Medications Medication Brand Name Start Date Product [...] 1.0 {tablet_as_needed} active Hydrocodone-Acetaminophen 5-325 MG eCW1 ([facility]) Acetaminophen 325 MG / Hydrocodone Kwesi trate 5 MG Oral Tablet Hydrocodone- Acetaminophen 5-325 MG Hydrocodone-Acetaminophen 5-325 MG 05/13/2020 12:00:00 AM EST 1.0 {tablet_as_needed} active Hydrocodone-Acetaminophen 5-325 MG eCW1 ([facility]) Acetaminophen 325 MG / Hydrocodone Kwesi trate 5 MG Oral Tablet Hydrocodone- Acetaminophen 5-325 MG Hydrocodone-Acetaminophen 5-325 MG 04/03/2020 12:00:00 AM EST 1.0 {tablet_as_needed} active Hydrocodone-Acetaminophen 5-325 MG eCW1 ([facility]) Acetaminophen 325 MG / Hydrocodone Kwesi trate 5 MG Oral Tablet Hydrocodone- Acetaminophen 5-325 MG Hydrocodone-Acetaminophen 5-325 MG 04/03/2020 12:00:00 AM EST 1.0 {tablet_as_needed} active Hydrocodone-Acetaminophen 5-325 MG eCW1 ([facility]) 5-325 mg 04/03/2020 12:00:00 AM EST tablet 90 TAKE 1 TABLET ORALLY THREE TIMES A DAY NEEDED. MAXIMUM DAILY DOSE OF 3 TAKE 1 TABLET ORALLY THREE TIMES A DAY NEEDED. MAXIMUM DAILY DOSE OF 3 SOLD: 04/04/2020 [facility] Acetaminophen 325 MG / Hydrocodone Kwesi trate 5 MG Oral Tablet Hydrocodone- Acetaminophen 5-325 MG Hydrocodone-Acetaminophen 5-325 MG 04/03/2020 12:00:00 AM EST 1.0 {tablet_as_needed} active Hydrocodone-Acetaminophen 5-325 MG eCW1 ([facility]) Acetaminophen 325 MG / Hydrocodone Kwesi trate 5 MG Oral Tablet Hydrocodone- Acetaminophen 5-325 MG Hydrocodone-Acetaminophen 5-325 MG 04/03/2020 12:00:00 AM EST 1.0 {tablet_as_needed} active Hydrocodone-Acetaminophen 5-325 MG eCW1 ([facility]) Acetaminophen 325 MG / Hydrocodone Kwesi trate 5 MG Oral Tablet Hydrocodone- Acetaminophen 5-325 MG Hydrocodone-Acetaminophen 5-325 MG 02/21/2020 12:00:00 AM EDT 1.0 {tablet_as_needed} active Hydrocodone-Acetaminophen 5-325 MG eCW1 ([facility]) 5-325 mg 02/21/2020 12:00:00 AM EDT [...] 1.0 {tablet_as_needed} active Hydrocodone-Acetaminophen 5-325 MG eCW1 ([facility]) Acetaminophen 325 MG / Hydrocodone Kwesi trate 5 MG Oral Tablet Hydrocodone- Acetaminophen 5-325 MG Hydrocodone-Acetaminophen 5-325 MG 10/22/2019 12:00:00 AM EDT 1.0 {tablet_as_needed} active Hydrocodone-Acetaminophen 5-325 MG eCW1 ([facility]) 5-325 mg 09/13/2019 12:00:00 AM EDT [...] active 1 tablet as neede d eCW1 ([facility]) 5-325 mg 08/09/2019 12:00:00 AM EDT [...] active 1 tablet as neede d eCW1 ([facility]) 5-325 mg 07/10/2019 12:00:00 AM EDT [...] active 1 tablet as neede d eCW1 ([facility]) Acetaminophen 325 MG / Hydrocodone Kwesi trate 5 MG Oral Tablet Hydrocodone- Acetaminophen 5-325 MG Hydrocodone-Acetaminophen 5-325 MG 05/31/2019 12:00:00 AM EST active 1 tablet as neede d eCW1 ([facility]) 5-325 mg 05/31/2019 12:00:00 AM EST tablet 90 TAKE ONE TABLET BY MOUTH THREE TIMES A DAY NEEDED MAXIMUM DAILY DOSE = 3 TABLETS TAKE ONE TABLET BY MOUTH THREE TIMES A DAY NEEDED MAXIMUM DAILY DOSE = 3 TABLETS SOLD: 06/11/2019 [facility] 17 gram/dose 05/10/2019 12:00:00 AM EST powder [address] KUHN TO BE USE FOR PREP USE BY DR KUHN TO BE USE FOR PREP SOLD: 06/11/2019 [facility] magnesium citrate 58.2 MG/ML Oral Solution Magnesium Citrate 05/09/2019 12:00:00 AM EST active MEDENT ([facility], ) MAGNESIUM CITRATE 05/09/2019 12:00:00 AM EST solution 296 TAKE 1 10 OUNCE BOTTLE PRIOR TO PROCEDURE FOR ADDITIONAL BOWEL PREP PER INSTRUCTIONS TAKE 1 10 OUNCE BOTTLE PRIOR TO PROCEDURE FOR ADDITIONAL BOWEL PREP PER INSTRUCTIONS SOLD: 06/11/2019 [facility] POLYETHYLENE GLYCOL 3350 142 MG/ML Oral Solution [Miralax] M iralax 05/09/2019 12:00:00 AM EST active M EDENT ([facility], ) 90 mcg/actuation 05/03/2019 12:00:00 AM EST HFA aerosol inha ler 8 INHALE TWO PUFFS BY MOUTH EVERY 6 HOURS NEEDED FOR COUGH INHALE TWO PUFFS BY MOUTH EVERY 6 HOURS NEEDED FOR COUGH SOLD: 05/03/2019 [facility] 200 ACTUAT Albuterol 0.09 MG/ACTUAT Mete red Dose Inhaler [Proventil] Proventil HFA 108 (90 Base) MCG/ACT Proventil HFA 108 (90 Base) MCG/ACT 05/03/2019 12:00:00 AM EST 2.0 {puffs_as_needed} active Proventil HFA 108 (90 Base) MCG/ACT eCW1 ([facility]) 200 ACTUAT Albuterol 0.09 MG/ACTUAT Mete red Dose Inhaler [Proventil] Proventil HFA 108 (90 Base) MCG/ACT Proventil HFA 108 (90 Base) MCG/ACT 05/03/2019 12:00:00 AM EST active 2 puffs as needed eCW1 ([facility]) 200 ACTUAT Albuterol 0.09 MG/ACTUAT Mete red Dose Inhaler [Proventil] Proventil HFA 108 (90 Base) MCG/ACT Proventil HFA 108 (90 Base) MCG/ACT 05/03/2019 12:00:00 AM EST 2.0 {puffs_as_needed} active Proventil HFA 108 (90 Base) MCG/ACT eCW1 ([facility]) 200 ACTUAT Albuterol 0.09 MG/ACTUAT Mete red Dose Inhaler [Proventil] Proventil HFA 108 (90 Base) MCG/ACT Proventil HFA 108 (90 Base) MCG/ACT 05/03/2019 12:00:00 AM EST 2.0 {puffs_as_needed} active Proventil HFA 108 (90 Base) MCG/ACT eCW1 ([facility]) 200 ACTUAT Albuterol 0.09 MG/ACTUAT Mete red Dose Inhaler [Proventil] Proventil HFA 108 (90 Base) MCG/ACT Proventil HFA 108 (90 Base) MCG/ACT 05/03/2019 12:00:00 AM EST 2.0 {puffs_as_needed} active Proventil HFA 108 (90 Base) MCG/ACT eCW1 ([facility]) PredniSONE 10 MG (48) PredniSONE 10 MG (48) 05/03/2019 12:00:00 AM EST active PredniSONE 10 MG (48) eCW1 ( [facility]) PredniSONE 10 MG (48) PredniSONE 10 MG (48) 05/03/2019 12:00:00 AM EST active PredniSONE 10 MG (48) eCW1 ( [facility]) PredniSONE 10 MG (48) PredniSONE 10 MG (48) 05/03/2019 12:00:00 AM EST active 30 bid 4d, 20 bid 4d, 10 bid 4d eCW1 ([facility]) 200 ACTUAT Albuterol 0.09 MG/ACTUAT Mete red Dose Inhaler [Proventil] Proventil HFA 108 (90 Base) MCG/ACT Proventil HFA 108 (90 Base) MCG/ACT 05/03/2019 12:00:00 AM EST 2.0 {puffs_as_needed} active Proventil HFA 108 (90 Base) MCG/ACT eCW1 ([facility]) Azithromycin 500 MG Oral Tablet Azithromycin 500 MG 05/03/2019 1 2:00:00 AM EST active 1 tablet eCW1 ([facility]) 200 ACTUAT Albuterol 0.09 MG/ACTUAT Mete red Dose Inhaler [Proventil] Proventil HFA 108 (90 Base) MCG/ACT Proventil HFA 108 (90 Base) MCG/ACT 05/03/2019 12:00:00 AM EST 2.0 {puffs_as_needed} active Proventil HFA 108 (90 Base) MCG/ACT eCW1 ([facility]) 200 ACTUAT Albuterol 0.09 MG/ACTUAT Mete red Dose Inhaler [Proventil] Proventil HFA 108 (90 Base) MCG/ACT Proventil HFA 108 (90 Base) MCG/ACT 05/03/2019 12:00:00 AM EST 2.0 {puffs_as_needed} active Proventil HFA 108 (90 Base) MCG/ACT eCW1 ([facility]) 200 ACTUAT Albuterol 0.09 MG/ACTUAT Mete red Dose Inhaler [Proventil] Proventil HFA 108 (90 Base) MCG/ACT Proventil HFA 108 (90 Base) MCG/ACT 05/03/2019 12:00:00 AM EST 2.0 {puffs_as_needed} active Proventil HFA 108 (90 Base) MCG/ACT eCW1 ([facility]) 200 ACTUAT Albuterol 0.09 MG/ACTUAT Mete red Dose Inhaler [Proventil] Proventil HFA 108 (90 Base) MCG/ACT Proventil HFA 108 (90 Base) MCG/ACT 05/03/2019 12:00:00 AM EST 2.0 {puffs_as_needed} active Proventil HFA 108 (90 Base) MCG/ACT eCW1 ([facility]) PredniSONE 10 MG (48) PredniSONE 10 MG (48) 05/03/2019 12:00:00 AM EST active PredniSONE 10 MG (48) eCW1 ( [facility]) 200 ACTUAT Albuterol 0.09 MG/ACTUAT Mete red Dose Inhaler [Proventil] Proventil HFA 108 (90 Base) MCG/ACT Proventil HFA 108 (90 Base) MCG/ACT 05/03/2019 12:00:00 AM EST 2.0 {puffs_as_needed} active Proventil HFA 108 (90 Base) MCG/ACT eCW1 ([facility]) Azithromycin 500 MG Oral Tablet Azithromycin 500 MG 05/03/2019 1 2:00:00 AM EST 1.0 {tablet} active Azithromyci n 500 MG eCW1 ([facility]) Azithromycin 500 MG Oral Tablet Azithromycin 500 MG 05/03/2019 1 2:00:00 AM EST 1.0 {tablet} active Azithromyci n 500 MG eCW1 ([facility]) 200 ACTUAT Albuterol 0.09 MG/ACTUAT Mete red Dose Inhaler [Proventil] Proventil HFA 108 (90 Base) MCG/ACT Proventil HFA 108 (90 Base) MCG/ACT 05/03/2019 12:00:00 AM EST 2.0 {puffs_as_needed} active Proventil HFA 108 (90 Base) MCG/ACT eCW1 ([facility]) 200 ACTUAT Albuterol 0.09 MG/ACTUAT Mete red Dose Inhaler [Proventil] Proventil HFA 108 (90 Base) MCG/ACT Proventil HFA 108 (90 Base) MCG/ACT 05/03/2019 12:00:00 AM EST 2.0 {puffs_as_needed} active Proventil HFA 108 (90 Base) MCG/ACT eCW1 ([facility]) 200 ACTUAT Albuterol 0.09 MG/ACTUAT Mete red Dose Inhaler [Proventil] Proventil HFA 108 (90 Base) MCG/ACT Proventil HFA 108 (90 Base) MCG/ACT 05/03/2019 12:00:00 AM EST 2.0 {puffs_as_needed} active Proventil HFA 108 (90 Base) MCG/ACT eCW1 ([facility]) 10 mg 05/03/2019 12:00:00 AM EST [...] {tablet} active Azithromyci n 500 MG eCW1 ([facility]) 200 ACTUAT Albuterol 0.09 MG/ACTUAT Mete red Dose Inhaler [Proventil] Proventil HFA 108 (90 Base) MCG/ACT Proventil HFA 108 (90 Base) MCG/ACT 05/03/2019 12:00:00 AM EST 2.0 {puffs_as_needed} active Proventil HFA 108 (90 Base) MCG/ACT eCW1 ([facility]) 200 ACTUAT Albuterol 0.09 MG/ACTUAT Mete red Dose Inhaler [Proventil] Proventil HFA 108 (90 Base) MCG/ACT Proventil HFA 108 (90 Base) MCG/ACT 05/03/2019 12:00:00 AM EST 2.0 {puffs_as_needed} active Proventil HFA 108 (90 Base) MCG/ACT eCW1 ([facility]) Insurance Providers Payer name Policy type / Coverage type Policy ID Covered constitution party ID Covered constitution party's relationship to padron Policy Padron Plan Information [facility] [id number] ANSI-Commercial [id number] ANSI-Commercial [id number] ANSI-Commercial [id number] ANSI-Commercial [id number] ANSI-Commercial [id number] ANSI-Commercial [id number] ANSI-Commercial [id number] ANSI-Commercial [id number] ANSI-Commercial [id number] ANSI-Commercial [id number] [facility] [id number] ANSI-Commercial [id number] ANSI-Commercial [id number] ANSI-Commercial [id number] ANSI-Commercial [id number] ANSI-Commercial [id number] ANSI-Commercial [id number] ANSI-Commercial [id number] ANSI-Commercial [id number] ANSI-Commercial [id number] ANSI-Commercial [id number] ANSI-Commercial [id number] ANSI-Commercial [id number] ANSI-Commercial [id number] ANSI-Commercial [id number] ANSI-Commercial [id number] ANSI-Commercial [id number] ANSI-Commercial [id number] ANSI-Commercial [id number] ANSI-Commercial [id number]-0h16-0q6w-ll194f6sb1h2 ANSI-Commercial z2o94r81-za5r-59xm-05ds-7j494542c2p2 f9t72v75-zt1g-34ap-00cj-0c441344q8o7 ANSI-Commercial ti76912i-d2ao-2ej9-g41o-5ixc7qb50p83 jq84334d-q9rl-7tk0-h99x-1ftq0xa49o91 ANSI-Commercial 4u0325z0-8517-4vf5-w517-53067jc08t5f 0c3330z8-8008-2ci9-a298-67389wm38v6q ANSI-Commercial 2710vtk4-52q9-2182-7686-6893i738q600 3205mei6-60u4-8454-1666-4984i885u932 ANSI-Commercial 49464115-6819-4765-92a2-m56v2vv190k4 34028963-3830-1717-18e8-j98e4xz417b1 ANSI-Commercial 5r1wyo28-e6h3-1fj6-uxt1-8238712207k4 3x8nnp33-a6x6-6lw0-ajl1-3758803429c2 ANSI-Commercial 628x24eb-3zp7-11yv-i4aj-dwz8l13x4789 998z53vv-5bu6-52mf-x9af-vtj3w23r9238 ANSI-Commercial 34a47r0v-woyx-8y8v-8ez8-50a34y6s1655 88z63q3q-gnwk-5w9j-5oj7-73q27m7u1286 ANSI-Commercial 94663mb3-1598-4c46-pii3-llrh99161t19 04267xa5-8135-7h91-keg2-ebjf92519k79 ANSI-Commercial pt0qt595-j821-38lh-17sk-f03188584z74 rs3gp697-p929-09vg-37hz-z15453828v66 ANSI-Commercial 0861395c-44p1-8787-dnuz-3j147813nv31 7530236o-89a1-9495-mvpi-1z931611sl92 ANSI-Commercial fku0352o-7r51-9y97-803t-eb38lxg746vl lex9907k-9f05-3o36-045y-qf37zif074eq ANSI-Commercial 32c80vpj-04u7-81s4-mtmo-3s96j19v1q79 70l67vhi-55e4-14r3-nklk-9x49s59d9b27 ANSI-Commercial ukd63r9q-q8w5-7ob5-lbhx-9f02v8npl15o bop20l0a-t6s3-5hf3-tytu-1l33d7iwb45v ANSI-Commercial 27qn3089-0n07-1626-uv18-9umu468414nw 20oe4005-5t06-5329-tc65-1pih316662jt ANSI-Commercial 515g2204-84cm-60rh-4804-w5q1983r7766 811h5372-65xb-74kx-8315-r5q2078q3464 ANSI-Commercial fz8scu01-2272-2k03-v6kq-8c26u7968w22 dy4kyh07-4652-8p74-f0xt-5j33j7121w02 ANSI-Commercial s7364584-u244-83q3-mh20-wc7ghxpfzy38 k5571531-e234-47c7-br77-gr7yirfmod07 ANSI-Commercial 2eg6m115-v6i4-46x9-11z1-a9637y406l6z 1bv7e009-h9m5-09s3-61l7-z7749p096p3s ANSI-Commercial yd7klxv0-y57b-4ls8-y831-1r8d256s7xx0 qy3lhlp2-r99j-3jf5-s032-3c9s485q3km3 ANSI-Commercial lx3d562f-68pi-371b-p67i-1h4q3xgw8e8t tq0y401y-34gn-586p-g70u-9t8c4onh6e9e ANSI-Commercial 57k28v3q-u6q4-95z6-30i2-93b469149o5f [id number] ANSI-Commercial [id number] [employer]OMCO [id number] SP [id number] POMCO [id number] SP [id number] [employer] Commercial [id number] Self [id number] [employer]OM[employer] PPO O [id number] S [id number] [id number] SP [id number] [employer] [id number] SP [id number] POM[employer] [id number] April [id number] [employer] (HMO) Se lf MEDICARE [id number] SP [id number] A POMCO U [id number] Self [id number] MEDICARE P [id number] S [id number] A [place] CLAIMS ADM 8 [id number] BR [id number] [place] CLAIM ADM 8 [id number] MEDICARE 4 [id number] 1 [id number] A Problems, Conditions, and Diagnoses Code Display Name Description Problem Type Effective Dates Data Source(s) M85.80 [id number] Borderline osteopenia Problem 02/29/2020 12: 00:00 AM EDT eCW1 ([facility]) J45.20 [id number] Mild intermittent asthma without complica tion Problem 02/29/2020 12:00:00 AM EDT eCW1 ([facility]) F17.200 Tobacco user Nicotine addiction Problem 02/29/2020 12:0 0:00 AM EDT eCW1 ([facility]) 29558097 Type 2 diabetes mellitus Type 2 diabetes mellitus Prob darinel 05/09/2019 12:00:00 AM EST MEDENT ([facility], ) J45.21 [id number] Mild intermittent asthma with acute exace rbation Problem 05/03/2019 12:00:00 AM EST eCW1 ([facility]) J45.21 [id number] Mild intermittent asthma with acute exace rbation Problem 05/03/2019 12:00:00 AM EST eCW1 ([facility]) Surgeries/Procedures Procedure Description Date Indications Data Source(s) Immunization: Flublok Quadrivalent (18 years & older) 0.5mL IM (Influenza) 02/29/2020 12:00:00 AM EDT eCW1 ([facility]) Endoscopy Upper GI Complex Diagnostic 11/23/2019 12:00 :00 AM EDT MEDENT ([facility], ) Colonoscopy W/ Poly 11/23/2019 12:00:00 AM EDT MEDENT ([facility]) Injection, methylprednisolone acetate, 40 mg 0 12:00:00 AM EST eCW1 ([facility]) Injection, methylprednisolone acetate, 80 mg 0 12:00:00 AM EST eCW1 ([facility]) THER/PROPH/DIAG INJ, SC/IM 05/03/2019 12:00:00 AM EST eCW1 ([facility]) Results ID Date Data Source PLZ TIBIA/FIBULA AP,LAT 03/05/2020 09:59:42 AM EST eCW1 ([facility]) Name Value Range Interpretation Code Description Data Moon rce(s) Supporting Document(s) PLZ TIBIA/FIBULA AP,LAT eCW1 ( [facility]) ID Date Data Source [id number] 11/23/2019 10:00:00 AM EDT MEDENT ([facility], ) Name Value Range Interpretation Code Description Data Moon rce(s) Supporting Document(s) Surgical pathology study Laboratory [facility] FINAL DIAGNOSIS Ileocecal valve polyp, polypectomy: Tubular adenoma. 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 All in one. 12/26/2019806 Signed DEBORAH AGUIAR MD 12/26/2019806 ID Date Data Source [id number] 11/18/2019 09:15:00 AM EDT [facility] Name Value Range Interpretation Code Description Data Moon rce(s) Supporting Document(s) SARS coronavirus 2 RNA [facility] This lab was ordered by [facility] and reported by [facility]. Procedure Social History Code Duration Value Status Description Data Source(s ) Smoking 02/29/2020 12:00:00 AM EDT Former Smoker completed Former Smoker eCW1 ([facility]) Smoking 02/29/2020 12:00:00 AM EDT Former Smoker completed Former Smoker eCW1 ([facility]) Smoking 02/29/2020 12:00:00 AM EDT Former Smoker completed Former Smoker eCW1 ([facility]) Smoking 02/29/2020 12:00:00 AM EDT Former Smoker completed Former Smoker eCW1 ([facility]) Smoking 02/29/2020 12:00:00 AM EDT Former Smoker completed Former Smoker eCW1 ([facility]) Smoking 02/29/2020 12:00:00 AM EDT Former Smoker completed Former Smoker eCW1 ([facility]) Smoking 02/29/2020 12:00:00 AM EDT Former Smoker completed Former Smoker eCW1 ([facility]) Smoking 02/29/2020 12:00:00 AM EDT Former Smoker completed Former Smoker eCW1 ([facility]) Smoking 02/29/2020 12:00:00 AM EDT Former Smoker completed Former Smoker eCW1 ([facility]) Smoking 02/29/2020 12:00:00 AM EDT Former Smoker completed Former Smoker eCW1 ([facility]) Smoking 02/29/2020 12:00:00 AM EDT Former Smoker completed Former Smoker eCW1 ([facility]) Smoking 02/29/2020 12:00:00 AM EDT Former Smoker completed Former Smoker eCW1 ([facility]) Smoking 05/03/2019 12:00:00 AM EST Former Smoker completed Former Smoker eCW1 ([facility]) Smoking 05/03/2019 12:00:00 AM EST Former Smoker completed Former Smoker eCW1 ([facility]) Smoking 05/03/2019 12:00:00 AM EST Former Smoker completed Former Smoker eCW1 ([facility]) Vital Signs ID Date Data Source UNK Name Value Range Interpretation Code Description Data Source(s) Diastolic blood pressure 78 mm[Hg] 78 mm[Hg] eCW1 ([facility]) Systolic blood pressure 128 mm[Hg] 128 mm[Hg] e CW1 ([facility]) Body temperature 98.1 [degF] 98.1 [degF] eCW1 ( [facility]) Respiratory rate 20 /min 20 /min eCW1 ([facility]) Heart rate 93 /min 93 /min eCW1 ([facility]) Body mass index (BMI) [Ratio] 39.22 kg/m2 39.22 kg/m2 W1 ([facility]) Body height 66 [in_i] 66 [in_i] eCW1 ([facility]) Body weight 243 [lb_av] 243 [lb_av] W1 ([facility]) Body weight 111.132 kg 111.132 kg MEDENT ([facility], ) [place] body weight 130 [lb_av] 130 [lb_av] MEDEN T ([facility], ) Body mass index (BMI) [Ratio] 39.5 kg/m2 39.5 k g/m2 MEDENT ([facility]) Body weight 245.00 [lb_av] 245.00 [lb_av] MEDEN T ([facility]) Body height 66 [in_i] 66 [in_i] [facility] ([facility]) 5'6" Diastolic blood pressure 64 mm[Hg] 64 mm[Hg] [facility] ([facility]) Systolic blood pressure 104 mm[Hg] 104 mm[Hg] [facility] Body weight 110.225 kg 110.225 kg [facility] ([facility]) [place] body weight 130 [lb_av] 130 [lb_av] MEDEN T ([facility]) Body mass index (BMI) [Ratio] 39.2 kg/m2 39.2 k g/m2 [facility] ([facility]) Body weight 243.00 [lb_av] 243.00 [lb_av] MEDEN T ([facility]) Body height 66 [in_i] 66 [in_i] [facility] ([facility]) 5'6" Diastolic blood pressure 82 mm[Hg] 82 mm[Hg] [facility] ([facility]) Systolic blood pressure 122 mm[Hg] 122 mm[Hg] M [facility] ([facility]) Diastolic blood pressure 80 mm[Hg] 80 mm[Hg] eCW1 ([facility]) Systolic blood pressure 142 mm[Hg] 142 mm[Hg] e CW1 ([facility]) Body temperature 98.0 [degF] 98.0 [degF] eCW1 ( [facility]) Respiratory rate 18 /min 18 /min eCW1 ([facility]) Heart rate 101 /min 101 /min eCW1 ([facility]) Body mass index (BMI) [Ratio] 39.70 kg/m2 39.70 kg/m2 W1 ([facility]) Body height 66 [in_us] 66 [in_us] eCW1 ([facility]) Body weight Measured 246 [lb_av] 246 [lb_av] eC W1 ([facility]) Patient Treatment Plan of Care Planned Activity Planned Date Details Description Data Source (s) Acetaminophen 325 MG / Hydrocodone Bitartrate 5 MG Ora l Tablet 05/13/2020 12:00:00 AM EST eCW1 ([facility]) Acetaminophen 325 MG / Hydrocodone Bitartrate 5 MG Ora l Tablet 05/13/2020 12:00:00 AM EST eCW1 ([facility]) Acetaminophen 325 MG / Hydrocodone Bitartrate 5 MG Ora l Tablet 04/03/2020 12:00:00 AM EST eCW1 ([facility]) Acetaminophen 325 MG / Hydrocodone Bitartrate 5 MG Ora l Tablet 04/03/2020 12:00:00 AM EST eCW1 ([facility]) Acetaminophen 325 MG / Hydrocodone Bitartrate 5 MG Ora l Tablet 04/03/2020 12:00:00 AM EST eCW1 ([facility]) Acetaminophen 325 MG / Hydrocodone Bitartrate 5 MG Ora l Tablet 04/03/2020 12:00:00 AM EST eCW1 ([facility]) Acetaminophen 325 MG / Hydrocodone Bitartrate 5 MG Ora l Tablet 02/21/2020 12:00:00 AM EDT eCW1 ([facility]) Acetaminophen 325 MG / Hydrocodone Bitartrate 5 MG Ora l Tablet 10/23/2019 12:00:00 AM EDT eCW1 ([facility]) Acetaminophen 325 MG / Hydrocodone Bitartrate 5 MG Ora l Tablet 10/22/2019 12:00:00 AM EDT eCW1 ([facility]) Acetaminophen 325 MG / Hydrocodone Bitartrate 5 MG Ora l Tablet 09/13/2019 12:00:00 AM EDT eCW1 ([facility]) Acetaminophen 325 MG / Hydrocodone Bitartrate 5 MG Ora l Tablet 08/09/2019 12:00:00 AM EDT eCW1 ([facility]) Acetaminophen 325 MG / Hydrocodone Bitartrate 5 MG Ora l Tablet 07/10/2019 12:00:00 AM EDT eCW1 ([facility]) Acetaminophen 325 MG / Hydrocodone Bitartrate 5 MG Ora l Tablet 05/31/2019 12:00:00 AM EST eCW1 ([facility]) PredniSONE 10 MG (48) 05/03/2019 12:00:00 AM EST eCW1 ([facility]) Azithromycin 500 MG Oral Tablet 05/03/2019 12:00:00 AM EST eCW1 ([facility]) 200 ACTUAT Albuterol 0.09 MG/ACTUAT Metered Dose Inhal er [Proventil] 05/03/2019 12:00:00 AM EST eCW1 ([facility]) PredniSONE 10 MG (48) 05/03/2019 12:00:00 AM EST eCW1 ([facility]) 200 ACTUAT Albuterol 0.09 MG/ACTUAT Metered Dose Inhal er [Proventil] 05/03/2019 12:00:00 AM EST eCW1 ([facility]) PredniSONE 10 MG (48) 05/03/2019 12:00:00 AM EST eCW1 ([facility]) Azithromycin 500 MG Oral Tablet 05/03/2019 12:00:00 AM EST eCW1 ([facility]) Azithromycin 500 MG Oral Tablet 05/03/2019 12:00:00 AM EST eCW1 ([facility]) 200 ACTUAT Albuterol 0.09 MG/ACTUAT Metered Dose Inhal er [Proventil] 05/03/2019 12:00:00 AM EST eCW1 ([facility]) PredniSONE 10 MG (48) 05/03/2019 12:00:00 AM EST eCW1 ([facility]) Azithromycin 500 MG Oral Tablet 05/03/2019 12:00:00 AM EST eCW1 ([facility]) 200 ACTUAT Albuterol 0.09 MG/ACTUAT Metered Dose Inhal er [Proventil] 05/03/2019 12:00:00 AM EST eCW1 ([facility])
[2020-06-25 11:45] LABS: BASO # 0.1 10^3/uL (0.0-0.2); BASO % 1.5 % (0.0-1.0); EOS # 0.2 10^3/uL (0.0-0.5); EOS % 3.6 % (0.0-3.0); HEMATOCRIT 38.3 % (36.0-47.0); HEMOGLOBIN 12.3 g/dl (12.0-15.5); LYMPH # 1.6 10^3/uL (1.5-5.0); LYMPH % 34.8 % (24.0-44.0); MEAN CORPUSCULAR HGB CONC 32.1 g/dl (32.0-36.5); MONO # 0.4 10^3/uL (0.0-0.8); MONO % 9.4 % (2.0-8.0); NEUTROPHILS # 2.4 10^3/uL (1.5-8.5); NEUTROPHILS % 50.5 % (36.0-66.0); PLATELET COUNT, AUTOMATED 241 10^3/uL (150-450); WHITE BLOOD COUNT 4.7 10^3/uL (4.0-10.0)
[2020-06-25 12:01] LABS: INR 1.01; PROTHROMBIN TIME 13.5 SECONDS (12.5-14.3)
[2020-06-25 12:14] LABS: ALBUMIN 3.4 GM/DL (3.2-5.2); ALT/SGPT 57 U/L (12-78); BILIRUBIN,DIRECT 0.2 MG/DL (0.0-0.2); BILIRUBIN,TOTAL 0.8 MG/DL (0.2-1.0); BLOOD UREA NITROGEN 11 MG/DL (7-18); CALCIUM LEVEL 9.3 MG/DL (8.5-10.1); CARBON DIOXIDE LEVEL 29 MEQ/L (21-32); CHLORIDE LEVEL 107 MEQ/L (98-107); CK-MB VALUE MASS < 1.0 NG/ML (<3.6); CPK CREATINE PHOSPHOKINASE 55 U/L (26-192); CREATININE FOR GFR 0.78 MG/DL (0.55-1.30); GLOMERULAR FILTRATION RATE > 60.0 (>51); GLUCOSE, FASTING 97 MG/DL (70-100); LIPASE 137 U/L (73-393); MB/CK RELATIVE INDEX 1.82 (< OR =4); POTASSIUM SERUM 3.6 MEQ/L (3.5-5.1); SODIUM LEVEL 143 MEQ/L (136-145); TOTAL PROTEIN 6.7 GM/DL (6.4-8.2); TROPONIN I < 0.02 NG/ML (< 0.10)
[2020-06-25] MEDS ORDERED: GI COCKTAIL 50ML BTL(HYOSCYAMINE/MAALOX/LIDOCAINE VISCOUS)(1:3:1) PO ONE (12:25)
[2020-06-25 13:45] VITALS: BP 124/60
--- NOTE | 2020-06-26 09:26 | ECGEPIP ---
[facility] - ED Test Date: 2020-06-25 Pat Name: LIOR DUNHAM Department: Room: - Gender: Female Final Inspector: miriam : 1960 Requested By: Nathan Washington Order Number: [id number] Reading MD: Niharika Valverde Measurements Intervals [place] Rate: 83 P: 42 ID: [id number] QRS: 34 QRSD: 80 T: 33 QT: 380 QTc: 446 Interpretive Statements Normal sinus rhythm Cannot rule out Anterior infarct , age undetermined similar 04/13/18 Electronically Signed on 06-26-2020 9:26:09 EST by Niharika Valverde
== END 2020-06-25 14:00 | disposition home or self-care (01) ==
LOC: M ED 10:45
DX: K29.70 Gastritis, unspecified, without bleeding (principal); K22.4 Dyskinesia of esophagus; I10 Essential (primary) hypertension; E78.5 Hyperlipidemia, unspecified; E07.9 Disorder of thyroid, unspecified; K21.9 Gastro-esophageal reflux disease without esophagitis; Z79.899 Other long term (current) drug therapy; Z79.890 Hormone replacement therapy; Z88.5 Allergy status to narcotic agent; Z88.8 Allergy status to other drugs, medicaments and biological substances; Z87.891 Personal history of nicotine dependence

== ENCOUNTER → 2020-07-24 | Outpatient (REF) | payer OTHER ==
[2020-07-24 14:14] LABS: BASO # 0.1 10^3/uL (0.0-0.2); BASO % 1.7 % (0.0-1.0); EOS # 0.2 10^3/uL (0.0-0.5); EOS % 3.4 % (0.0-3.0); HEMATOCRIT 42.9 % (36.0-47.0); HEMOGLOBIN 13.7 g/dl (12.0-15.5); LYMPH # 1.9 10^3/uL (1.5-5.0); LYMPH % 32.6 % (24.0-44.0); MEAN CORPUSCULAR HEMOGLOBIN 28.2 pg (27.0-33.0); MEAN CORPUSCULAR HGB CONC 31.9 g/dl (32.0-36.5); MEAN CORPUSCULAR VOLUME 88.5 fl (80.0-96.0); MONO # 0.5 10^3/uL (0.0-0.8); MONO % 8.8 % (2.0-8.0); NEUTROPHILS # 3.1 10^3/uL (1.5-8.5); NEUTROPHILS % 53.3 % (36.0-66.0); PLATELET COUNT, AUTOMATED 296 10^3/uL (150-450); RED BLOOD COUNT 4.85 10^6/uL (4.00-5.40); WHITE BLOOD COUNT 5.9 10^3/uL (4.0-10.0)
[2020-07-24 14:54] LABS: ALBUMIN 3.9 GM/DL (3.2-5.2); ALT/SGPT 66 U/L (12-78); BILIRUBIN,TOTAL 0.7 MG/DL (0.2-1.0); BLOOD UREA NITROGEN 11 MG/DL (7-18); CALCIUM LEVEL 9.6 MG/DL (8.5-10.1); CARBON DIOXIDE LEVEL 33 MEQ/L (21-32); CHLORIDE LEVEL 105 MEQ/L (98-107); CREATININE FOR GFR 0.81 MG/DL (0.55-1.30); FERRITIN 173 NG/ML (8-252); FREE T4 1.29 NG/DL (0.76-1.46); GLOMERULAR FILTRATION RATE > 60.0 (>51); GLUCOSE, FASTING 106 MG/DL (70-100); MAGNESIUM LEVEL 2.3 MG/DL (1.8-2.4); NT-PRO BNP 87 PG/ML (<125); POTASSIUM SERUM 4.2 MEQ/L (3.5-5.1); SODIUM LEVEL 142 MEQ/L (136-145); THYROID STIMULATING HORMONE 0.031 uIU/ML (0.358-3.740); TOTAL PROTEIN 7.6 GM/DL (6.4-8.2)
== END ==
LOC: M SFHCPLAZ 10:43
PROVIDERS: ATTEND Physician Assistant
DX: R53.83 Other fatigue (principal); M79.89 Other specified soft tissue disorders; D50.9 Iron deficiency anemia, unspecified; E03.9 Hypothyroidism, unspecified; E53.8 Deficiency of other specified B group vitamins; E11.9 Type 2 diabetes mellitus without complications

== ENCOUNTER → 2020-09-04 | Outpatient (CLI) | payer OTHER ==
--- NOTE | 2020-09-05 08:43 | REP ---
INDICATION: CERVICAL SPONDYLOSIS, LUMBAR DJD COMPARISON: None. TECHNIQUE: AP, lateral, flexion/extension, bilateral oblique, and open-mouth views. FINDINGS: Evidence for prior C3-C6 laminectomy with posterior fixation as well as anterior fixation at C4-C6. Alignment and lordosis is maintained. There is no evidence for acute fracture / compression injury or subluxation. The C1-2 and C2-3 levels appear relatively normal. Open mouth view demonstrates normal articulation and odontoid process. IMPRESSION: Postsurgical changes. Otherwise relatively normal age-appropriate examination. <Electronically signed by Chas Cuellar > 09/05/20 [id number]
--- NOTE | 2020-09-05 08:45 | REP ---
INDICATION: CERVICAL SPONDYLOSIS, LUMBAR DJD COMPARISON: 06/01/2016 TECHNIQUE: AP, lateral, bilateral oblique, and coned-down views of the lumbar spine. FINDINGS: Patient is again noted to be status post posterior fixation and suspected partial laminectomy at the L4-5 level. Alignment and lordosis maintained. Vertebral bodies are intact and without acute fracture/compression injury or subluxation. Mild endplate sclerosis and minimal disc space narrowing noted at L5-S1. Neural stimulator overlies the lower thoracic epidural space. IMPRESSION: Postoperative changes. Relatively mild degenerative change at L5-S1. <Electronically signed by Chas Cuellar > 09/05/20 [id number]
== END ==
LOC: M WUC 13:28
PROVIDERS: ATTEND Family Medicine
DX: M47.812 Spondylosis without myelopathy or radiculopathy, cervical region (principal); M47.816 Spondylosis without myelopathy or radiculopathy, lumbar region

== ENCOUNTER → 2021-02-16 | Outpatient (CLI) | payer OTHER ==
[~2021-02-16] MED LIST changes: +ERGO500029 PO; -VITA50005 PO
[2021-02-16 14:20] LABS: BASO # 0.1 10^3/uL (0.0-0.2); BASO % 1.5 % (0.0-1.0); EOS # 0.2 10^3/uL (0.0-0.5); EOS % 3.8 % (0.0-3.0); HEMATOCRIT 43.1 % (36.0-47.0); HEMOGLOBIN 13.7 g/dl (12.0-15.5); LYMPH # 1.7 10^3/uL (1.5-5.0); LYMPH % 28.8 % (24.0-44.0); MEAN CORPUSCULAR HEMOGLOBIN 28.1 pg (27.0-33.0); MEAN CORPUSCULAR HGB CONC 31.8 g/dl (32.0-36.5); MEAN CORPUSCULAR VOLUME 88.5 fl (80.0-96.0); MONO # 0.4 10^3/uL (0.0-0.8); NEUTROPHILS # 3.4 10^3/uL (1.5-8.5); NEUTROPHILS % 58.6 % (36.0-66.0); PLATELET COUNT, AUTOMATED 297 10^3/uL (150-450); RED BLOOD COUNT 4.87 10^6/uL (4.00-5.40); WHITE BLOOD COUNT 5.8 10^3/uL (4.0-10.0)
[2021-02-16 14:39] LABS: HEMOGLOBIN A1c 5.6 %
[2021-02-16 14:57] LABS: ALBUMIN 3.7 GM/DL (3.2-5.2); ALT/SGPT 71 U/L (12-78); BILIRUBIN,TOTAL 0.8 MG/DL (0.2-1.0); BLOOD UREA NITROGEN 12 MG/DL (7-18); CALCIUM LEVEL 9.3 MG/DL (8.5-10.1); CARBON DIOXIDE LEVEL 31 MEQ/L (21-32); CHLORIDE LEVEL 106 MEQ/L (98-107); CHOLESTEROL LEVEL 151 MG/DL (<200); CREATININE FOR GFR 0.94 MG/DL (0.55-1.30); FERRITIN 130 NG/ML (8-252); FREE T4 1.46 NG/DL (0.76-1.46); GLOMERULAR FILTRATION RATE > 60.0 (>51); GLUCOSE, FASTING 98 MG/DL (70-100); HDL CHOLESTEROL 50 MG/DL (>40); LDL CHOLESTEROL 60 MG/DL (<100); NON-HDL-C 101 MG/DL; POTASSIUM SERUM 4.5 MEQ/L (3.5-5.1); PTH INTACT 146.1 PG/ML (18.5-88.0); SODIUM LEVEL 142 MEQ/L (136-145); THYROID STIMULATING HORMONE 0.027 uIU/ML (0.358-3.740); TOTAL 25(OH) VITAMIN D 45.8 NG/ML (30.0-100.0); TOTAL PROTEIN 7.6 GM/DL (6.4-8.2); TRIGLYCERIDES LEVEL 206 MG/DL (<150)
[2021-02-16 14:58] LABS: VITAMIN B12 LEVEL 1240 PG/ML (247-911)
== END ==
LOC: M PLALAB 11:03
PROVIDERS: ATTEND Family Medicine
DX: E55.9 Vitamin D deficiency, unspecified (principal); E11.9 Type 2 diabetes mellitus without complications; E53.8 Deficiency of other specified B group vitamins

== ENCOUNTER → 2021-06-24 | Outpatient (CLI) | payer OTHER ==
[~2021-06-24] MED LIST changes: -MOME50SP; +NASO50SP3
[2021-06-24 13:48] LABS: BASO # 0.1 10^3/uL (0.0-0.2); BASO % 1.5 % (0.0-1.0); EOS # 0.2 10^3/uL (0.0-0.5); HEMATOCRIT 41.1 % (36.0-47.0); HEMOGLOBIN 13.3 g/dl (12.0-15.5); LYMPH # 1.6 10^3/uL (1.5-5.0); LYMPH % 30.6 % (24.0-44.0); MEAN CORPUSCULAR HEMOGLOBIN 28.5 pg (27.0-33.0); MEAN CORPUSCULAR HGB CONC 32.4 g/dl (32.0-36.5); MEAN CORPUSCULAR VOLUME 88.2 fl (80.0-96.0); MONO # 0.4 10^3/uL (0.0-0.8); MONO % 6.9 % (2.0-8.0); NEUTROPHILS # 2.9 10^3/uL (1.5-8.5); NEUTROPHILS % 56.8 % (36.0-66.0); PLATELET COUNT, AUTOMATED 299 10^3/uL (150-450); RED BLOOD COUNT 4.66 10^6/uL (4.00-5.40); WHITE BLOOD COUNT 5.2 10^3/uL (4.0-10.0)
[2021-06-24 14:19] LABS: ALBUMIN 3.4 GM/DL (3.2-5.2); BLOOD UREA NITROGEN 11 MG/DL (7-18); CALCIUM LEVEL 9.2 MG/DL (8.5-10.1); CARBON DIOXIDE LEVEL 28 MEQ/L (21-32); CHLORIDE LEVEL 105 MEQ/L (98-107); CREATININE FOR GFR 0.79 MG/DL (0.55-1.30); GLOMERULAR FILTRATION RATE > 60.0 (>51); GLUCOSE, FASTING 92 MG/DL (70-100); NT-PRO BNP 32 PG/ML (<125); PHOSPHORUS LEVEL 3.2 MG/DL (2.5-4.9); POTASSIUM SERUM 4.1 MEQ/L (3.5-5.1); SODIUM LEVEL 140 MEQ/L (136-145)
[2021-06-24 14:20] LABS: PTH INTACT 112.2 PG/ML (18.5-88.0); TOTAL 25(OH) VITAMIN D 38.4 NG/ML (30.0-100.0)
[2021-06-24 15:14] LABS: HEMOGLOBIN A1c 5.8 %
== END ==
LOC: M PLALAB 11:02
PROVIDERS: ATTEND Family Medicine
DX: E11.9 Type 2 diabetes mellitus without complications (principal)

== ENCOUNTER → 2021-06-25 | Outpatient (CLI) | payer OTHER | LOC: M CARPUL 10:13 | PROVIDERS: ATTEND Family Medicine | DX: R06.00 Dyspnea, unspecified (principal) ==

== ENCOUNTER → 2021-12-29 | Outpatient (REF) | payer OTHER | LOC: M SFHCPLAZ 10:00 | PROVIDERS: ATTEND Family Medicine | DX: C44.519 Basal cell carcinoma of skin of other part of trunk (principal) ==

== ENCOUNTER → 2022-02-23 | Outpatient (REF) | payer OTHER | LOC: M SFHCPLAZ 09:58 | PROVIDERS: ATTEND Family Medicine | DX: L90.5 Scar conditions and fibrosis of skin (principal) ==

== ENCOUNTER → 2022-04-08 | Outpatient (CLI) | payer OTHER ==
[2022-04-08 15:48] LABS: BASO # 0.1 10^3/uL (0.0-0.2); BASO % 2.1 % (0.0-1.0); EOS # 0.2 10^3/uL (0.0-0.5); EOS % 4.4 % (0.0-3.0); HEMOGLOBIN 13.2 g/dl (12.0-15.5); LYMPH # 2.1 10^3/uL (1.5-5.0); LYMPH % 38.9 % (24.0-44.0); MEAN CORPUSCULAR HEMOGLOBIN 27.9 pg (27.0-33.0); MEAN CORPUSCULAR HGB CONC 32.2 g/dl (32.0-36.5); MEAN CORPUSCULAR VOLUME 86.7 fl (80.0-96.0); MONO # 0.4 10^3/uL (0.0-0.8); NEUTROPHILS # 2.5 10^3/uL (1.5-8.5); NEUTROPHILS % 46.6 % (36.0-66.0); PLATELET COUNT, AUTOMATED 266 10^3/uL (150-450); RED BLOOD COUNT 4.73 10^6/uL (4.00-5.40); WHITE BLOOD COUNT 5.3 10^3/uL (4.0-10.0)
[2022-04-08 16:06] LABS: CHOLESTEROL RISK RATIO 3.13 (<5); HDL CHOLESTEROL 42.7 MG/DL (>40); LDL CHOLESTEROL 64.1 MG/DL (<100)
[2022-04-08 16:08] LABS: FERRITIN 114.2 NG/ML (7.3-270.7); FREE T4 1.15 NG/DL (0.89-1.76)
[2022-04-08 16:09] LABS: THYROID STIMULATING HORMONE 0.497 uIU/ML (0.55-4.78)
== END ==
LOC: M PLALAB 14:42
PROVIDERS: ATTEND Family Medicine
DX: E03.9 Hypothyroidism, unspecified (principal); E11.9 Type 2 diabetes mellitus without complications

== ENCOUNTER → 2022-04-08 | Outpatient (CLI) | payer OTHER | LOC: M WHC 13:42 | PROVIDERS: ATTEND Family Medicine | DX: Z12.31 Encounter for screening mammogram for malignant neoplasm of breast (principal); M85.80 Other specified disorders of bone density and structure, unspecified site ==

== ENCOUNTER → 2022-06-07 | Outpatient (CLI) | payer OTHER ==
[~2022-06-07] MED LIST changes: +E-Z-GAS II EFFERVESCENT PACKET (SODIUM BICARB./CITRIC ACID/SIMETHICONE) As Ordered ONE; +E-Z-HD 98% w/w 340GM SUSP BTL As Ordered ONE; +E-Z-PAQUE 96% w/w SUSP 176GM BTL As Ordered ONE
== END ==
LOC: M RAD 08:15
PROVIDERS: ATTEND Physician Assistant
DX: K59.9 Functional intestinal disorder, unspecified (principal); K31.84 Gastroparesis; K21.9 Gastro-esophageal reflux disease without esophagitis; R10.13 Epigastric pain; Z96.89 Presence of other specified functional implants

== ENCOUNTER → 2022-07-21 | Outpatient (CLI) | payer OTHER ==
[~2022-07-21] MED LIST changes: -E-Z-GAS II EFFERVESCENT PACKET (SODIUM BICARB./CITRIC ACID/SIMETHICONE) As Ordered ONE; -E-Z-HD 98% w/w 340GM SUSP BTL As Ordered ONE; -E-Z-PAQUE 96% w/w SUSP 176GM BTL As Ordered ONE
[2022-07-21 16:50] LABS: BASO # 0.1 10^3/uL (0.0-0.2); BASO % 1.7 % (0.0-1.0); EOS # 0.2 10^3/uL (0.0-0.5); EOS % 4.3 % (0.0-3.0); HEMATOCRIT 40.1 % (36.0-47.0); LYMPH # 1.7 10^3/uL (1.5-5.0); LYMPH % 32.5 % (24.0-44.0); MEAN CORPUSCULAR HEMOGLOBIN 28.4 pg (27.0-33.0); MEAN CORPUSCULAR HGB CONC 32.4 g/dl (32.0-36.5); MEAN CORPUSCULAR VOLUME 87.7 fl (80.0-96.0); MONO # 0.4 10^3/uL (0.0-0.8); MONO % 7.1 % (2.0-8.0); NEUTROPHILS # 2.9 10^3/uL (1.5-8.5); PLATELET COUNT, AUTOMATED 251 10^3/uL (150-450); RED BLOOD COUNT 4.57 10^6/uL (4.00-5.40); WHITE BLOOD COUNT 5.4 10^3/uL (4.0-10.0)
[2022-07-21 17:06] LABS: ERYTHROCYTE SEDIMENTATION RATE 51 mm/hr (0-30)
[2022-07-21 17:20] LABS: HEMOGLOBIN A1c 6.4 % (4.0-6.0)
[2022-07-21 17:26] LABS: ALBUMIN 3.5 G/DL (3.2-5.2); ALKALINE PHOSPHATASE 112 U/L (46-116); ALT/SGPT 98 U/L (7.0-40); AST/SGOT 113 U/L (<34); BILIRUBIN,TOTAL 1.3 MG/DL (0.3-1.2); BLOOD UREA NITROGEN 12 MG/DL (9-23); CALCIUM LEVEL 8.9 MG/DL (8.3-10.6); CARBON DIOXIDE LEVEL 26 MMOL/L (20-31); CHLORIDE LEVEL 103 MMOL/L (98-107); CREATININE FOR GFR 0.66 MG/DL (0.55-1.30); GLOMERULAR FILTRATION RATE > 60.0 (>45); GLUCOSE, FASTING 120 MG/DL (74-106); POTASSIUM SERUM 3.4 MMOL/L (3.5-5.1); PTH INTACT 143.9 PG/ML (18.5-88.0); SODIUM LEVEL 141 MMOL/L (136-145); TOTAL 25(OH) VITAMIN D 68.8 NG/ML (20.0-100.0); TOTAL PROTEIN 6.7 G/DL (5.7-8.2); VITAMIN B12 LEVEL 678 PG/ML (211-911)
[2022-07-21 17:31] LABS: CREATININE, URINE 232.4 MG/DL; MAU/CREAT RATIO 3.8 MCG/MG (0.0-30.0)
== END ==
LOC: M WUC 13:40
PROVIDERS: ATTEND Family Medicine
DX: E55.9 Vitamin D deficiency, unspecified (principal); E11.9 Type 2 diabetes mellitus without complications; D50.9 Iron deficiency anemia, unspecified; M19.049 Primary osteoarthritis, unspecified hand

== ENCOUNTER → 2022-08-05 | Outpatient (CLI) | payer OTHER | LOC: M RAD 11:47 | PROVIDERS: ATTEND Physician Assistant | DX: K31.84 Gastroparesis (principal); K21.9 Gastro-esophageal reflux disease without esophagitis; R10.13 Epigastric pain | CPT/HCPCS: 78264; A9541 ==

== ENCOUNTER → 2022-08-16 | Outpatient (CLI) | payer OTHER | LOC: M WHC 06:59 | PROVIDERS: ATTEND Family Medicine | DX: K76.0 Fatty (change of) liver, not elsewhere classified (principal) ==

== ENCOUNTER → 2022-09-21 | Outpatient (CLI) | payer OTHER ==
[2022-09-21 17:01] LABS: ALBUMIN 3.2 G/DL (3.2-5.2); ALKALINE PHOSPHATASE 119 U/L (46-116); ALT/SGPT 90 U/L (7.0-40); AST/SGOT 86 U/L (<34); BILIRUBIN,DIRECT 0.3 MG/DL (<0.4); BILIRUBIN,TOTAL 0.9 MG/DL (0.3-1.2); TOTAL PROTEIN 6.5 G/DL (5.7-8.2)
[2022-09-21 17:15] LABS: HEPATITIS B SURFACE ANTIGEN NEGATIVE (NEGATIVE)
[2022-09-21 17:16] LABS: INR 0.98; PROTHROMBIN TIME 13.2 SECONDS (12.5-14.5)
[2022-09-21 17:17] LABS: PARTIAL THROMBOPLASTIN TIME 27.7 SECONDS (24.8-34.2)
[2022-09-24 02:08] LABS: ANTI-MITOCHONDRIAL ANTIBODY <20.0 Units (0.0-20.0); ANTINUCLEAR ANTIBODIES DIRECT Negative (Negative); LIVER-KIDNEY MICROSOMAL ABY <20.1 Units (0.0-20.0)
== END ==
LOC: M WUC 13:17
PROVIDERS: ATTEND Family Medicine
DX: K76.0 Fatty (change of) liver, not elsewhere classified (principal); M19.049 Primary osteoarthritis, unspecified hand

== ENCOUNTER → 2022-11-08 | Outpatient (CLI) | payer OTHER ==
[~2022-11-08] MED LIST changes: -K-TA10TA2 PO; +POTA-165 PO
[2022-11-08 13:32] LABS: BASO # 0.1 10^3/uL (0.0-0.2); BASO % 1.5 % (0.0-1.0); EOS # 0.2 10^3/uL (0.0-0.5); EOS % 3.2 % (0.0-3.0); HEMATOCRIT 41.3 % (36.0-47.0); LYMPH # 2.2 10^3/uL (1.5-5.0); LYMPH % 30.3 % (24.0-44.0); MEAN CORPUSCULAR HEMOGLOBIN 28.3 pg (27.0-33.0); MEAN CORPUSCULAR HGB CONC 31.5 g/dl (32.0-36.5); MONO # 0.5 10^3/uL (0.0-0.8); MONO % 7.4 % (2.0-8.0); NEUTROPHILS # 4.2 10^3/uL (1.5-8.5); NEUTROPHILS % 57.5 % (36.0-66.0); PLATELET COUNT, AUTOMATED 283 10^3/uL (150-450); RED BLOOD COUNT 4.59 10^6/uL (4.00-5.40); WHITE BLOOD COUNT 7.3 10^3/uL (4.0-10.0)
[2022-11-08 13:40] LABS: ALBUMIN 3.1 G/DL (3.2-5.2); ALKALINE PHOSPHATASE 97 U/L (46-116); ALT/SGPT 46 U/L (7.0-40); AST/SGOT 40 U/L (<34); BILIRUBIN,TOTAL 0.7 MG/DL (0.3-1.2); BLOOD UREA NITROGEN 14 MG/DL (9-23); CALCIUM LEVEL 8.6 MG/DL (8.3-10.6); CARBON DIOXIDE LEVEL 28 MMOL/L (20-31); CHLORIDE LEVEL 106 MMOL/L (98-107); CREATININE FOR GFR 0.71 MG/DL (0.55-1.30); FERRITIN 71.2 NG/ML (7.3-270.7); GLOMERULAR FILTRATION RATE > 60.0 (>45); GLUCOSE, FASTING 120 MG/DL (74-106); MAGNESIUM LEVEL 2.2 MG/DL (1.8-2.4); POTASSIUM SERUM 4.3 MMOL/L (3.5-5.1); SODIUM LEVEL 142 MMOL/L (136-145); TOTAL PROTEIN 6.3 G/DL (5.7-8.2)
[2022-11-08 14:11] LABS: ERYTHROCYTE SEDIMENTATION RATE 47 mm/hr (0-30)
== END ==
LOC: M WUC 09:17
PROVIDERS: ATTEND Family Medicine
DX: I50.32 Chronic diastolic (congestive) heart failure (principal); M19.149 Post-traumatic osteoarthritis, unspecified hand

== ENCOUNTER → 2023-02-01 | Outpatient (REF) | payer OTHER | LOC: M SFHCPLAZ 11:04 | PROVIDERS: ATTEND Family Medicine | DX: Z53.9 Procedure and treatment not carried out, unspecified reason (principal) ==

== ENCOUNTER → 2023-04-08 | Outpatient (CLI) | payer OTHER ==
[2023-04-08 17:19] LABS: ALBUMIN 3.5 G/DL (3.2-5.2); ALKALINE PHOSPHATASE 95 U/L (46-116); ALT/SGPT 80 U/L (7.0-40); AST/SGOT 67 U/L (<34); BILIRUBIN,TOTAL 0.6 MG/DL (0.3-1.2); BLOOD UREA NITROGEN 11 MG/DL (9-23); CALCIUM LEVEL 9.1 MG/DL (8.3-10.6); CARBON DIOXIDE LEVEL 27 MMOL/L (20-31); CHLORIDE LEVEL 106 MMOL/L (98-107); CHOLESTEROL LEVEL 263 MG/DL (<200); CHOLESTEROL RISK RATIO 5.84 (<5); CPK CREATINE PHOSPHOKINASE 73 U/L (34-145); CREATININE FOR GFR 0.79 MG/DL (0.55-1.30); GLOMERULAR FILTRATION RATE > 60.0 (>45); GLUCOSE, FASTING 122 MG/DL (74-106); LDL CHOLESTEROL 173.6 MG/DL (<100); POTASSIUM SERUM 3.9 MMOL/L (3.5-5.1); SODIUM LEVEL 142 MMOL/L (136-145); TOTAL PROTEIN 6.9 G/DL (5.7-8.2); TRIGLYCERIDES LEVEL 222 MG/DL (<150)
[2023-04-08 17:20] LABS: RHEUMATOID FACTOR QUANT < 3.5 IU/ML (<14); THYROID STIMULATING HORMONE 6.782 uIU/ML (0.55-4.78)
[2023-04-08 17:21] LABS: FREE T4 1.19 NG/DL (0.89-1.76)
[2023-04-08 17:46] LABS: HEMOGLOBIN A1c 5.9 % (4.0-6.0)
== END ==
LOC: M WUC 13:15
PROVIDERS: ATTEND Family Medicine
DX: E78.5 Hyperlipidemia, unspecified (principal); M19.049 Primary osteoarthritis, unspecified hand

== ENCOUNTER → 2023-06-01 | Outpatient (CLI) | payer OTHER | LOC: M WHC 15:09 | PROVIDERS: ATTEND Family Medicine | DX: Z12.31 Encounter for screening mammogram for malignant neoplasm of breast (principal) ==

== ENCOUNTER 2023-07-18 13:04 | Emergency (ER) | payer OTHER ==
[~2023-07-18] VITALS: Ht 162.6 cm; Wt 126.6 kg
[2023-07-18] MEDS ORDERED: SEMA1PEN2 SQ (13:20)
[2023-07-18] MEDS ORDERED: ROSU20TA61 PO (13:21)
[2023-07-18 13:58] LABS: BASO # 0.1 10^3/uL (0.0-0.2); BASO % 1.1 % (0.0-1.0); EOS # 0.2 10^3/uL (0.0-0.5); EOS % 2.4 % (0.0-3.0); HEMATOCRIT 41.5 % (36.0-47.0); HEMOGLOBIN 13.5 g/dl (12.0-15.5); LYMPH # 1.9 10^3/uL (1.5-5.0); LYMPH % 30.3 % (24.0-44.0); MEAN CORPUSCULAR HEMOGLOBIN 28.2 pg (27.0-33.0); MEAN CORPUSCULAR HGB CONC 32.5 g/dl (32.0-36.5); MEAN CORPUSCULAR VOLUME 86.6 fl (80.0-96.0); MONO # 0.6 10^3/uL (0.0-0.8); MONO % 9.6 % (2.0-8.0); NEUTROPHILS # 3.6 10^3/uL (1.5-8.5); NEUTROPHILS % 56.4 % (36.0-66.0); PLATELET COUNT, AUTOMATED 292 10^3/uL (150-450); RED BLOOD COUNT 4.79 10^6/uL (4.00-5.40); WHITE BLOOD COUNT 6.4 10^3/uL (4.0-10.0)
[2023-07-18 14:20] LABS: CK-MB VALUE MASS < 1.0 NG/ML (<3.6)
[2023-07-18 14:21] LABS: CPK CREATINE PHOSPHOKINASE 81 U/L (34-145); MB/CK RELATIVE INDEX 1.23 (< OR =4)
[2023-07-18 15:23] LABS: CK-MB VALUE MASS < 1.0 NG/ML (<3.6)
[2023-07-18 15:25] LABS: BLOOD UREA NITROGEN 16 MG/DL (9-23); CALCIUM LEVEL 9.1 MG/DL (8.3-10.6); CARBON DIOXIDE LEVEL 32 MMOL/L (20-31); CHLORIDE LEVEL 104 MMOL/L (98-107); CPK CREATINE PHOSPHOKINASE 80 U/L (34-145); CREATININE FOR GFR 0.76 MG/DL (0.55-1.30); GLOMERULAR FILTRATION RATE > 60.0 (>45); GLUCOSE, FASTING 119 MG/DL (74-106); MB/CK RELATIVE INDEX 1.25 (< OR =4); POTASSIUM SERUM 3.1 MMOL/L (3.5-5.1); SODIUM LEVEL 143 MMOL/L (136-145)
[2023-07-18] MEDS ORDERED: ISOVUE-370 76% 100ML VIAL As Ordered ONE (15:26)
[2023-07-18] MEDS ORDERED: HEPARIN SOD (PORCINE) 5000UNITS/ML 1ML VIAL/SYRINGE IV PRN (16:55)
[2023-07-18 17:20] LABS: INR 1.05; PARTIAL THROMBOPLASTIN TIME 27.4 SECONDS (24.8-34.2); PROTHROMBIN TIME 13.4 SECONDS (12.5-14.5)
[2023-07-18] MEDS: ASPIRIN ENTERIC 325MG TAB PO SCH (17:29)
[2023-07-18] MEDS: HEPARIN SOD (PORCINE) 5000UNITS/ML 1ML VIAL/SYRINGE IV ONE (17:30)
[2023-07-18] MEDS: HEPARIN DRIP 25,000 UNITS in IV 1 EA IV SCH (17:36)
[2023-07-18] MEDS ORDERED: GLUCOSE 4GM CHEW TABLET PO PRN (17:55)
[2023-07-18] MEDS ORDERED: NITROGLYCERIN 0.3MG SUBL TAB SL PRN (17:55)
[2023-07-18] MEDS ORDERED: DEXTROSE 50% 50ML SYRINGE IV PRN (17:55)
[2023-07-18] MEDS ORDERED: GLUCAGON INJ 1MG VIAL SC PRN (17:55)
[2023-07-18] MEDS: POTASSIUM CHLORIDE 10MEQ SR TABLET PO ONE (18:09)
[2023-07-18] MEDS: PANTOPRAZOLE 40MG VIAL IV SCH (18:14)
[2023-07-18] MEDS ORDERED: MOME220A INH (18:58)
[2023-07-18] MEDS ORDERED: SULF500T41 PO (18:58)
[2023-07-18] MEDS ORDERED: POTA10CA60 PO (18:58)
[2023-07-18] MEDS ORDERED: HYDR200T46 PO (18:58)
[2023-07-18] MEDS ORDERED: LEXA5TAB13 PO (18:58)
[2023-07-18] MEDS ORDERED: PRED5TA PO (18:58)
[2023-07-18] MEDS ORDERED: NORT25CA2 PO (18:58)
[2023-07-18] MEDS ORDERED: LEVO150T7 PO (18:58)
[2023-07-18] MEDS ORDERED: ASPI81CH48 PO (18:58)
[2023-07-18] MEDS ORDERED: BACL10TA2 PO (18:58)
[2023-07-18] MEDS ORDERED: HOME MED LIST COMPLETE! XX SCH (19:05)
[2023-07-18] MEDS: INSULIN LISPRO (NovoLOG) PER UNIT SC SCH (21:00)
[2023-07-18] MEDS: ROSUVASTATIN 10 MG TAB (CRESTOR) PO SCH (21:36)
[2023-07-18 21:38] VITALS: BP 145/72
[2023-07-18] MEDS: CARVedilol 12.5 MG TAB PO SCH (21:38)
[2023-07-19 01:50] LABS: HEMATOCRIT 38.9 % (36.0-47.0); HEMOGLOBIN 12.8 g/dl (12.0-15.5)
[2023-07-19 02:18] LABS: INR 1.17; PROTHROMBIN TIME 14.6 SECONDS (12.5-14.5)
[2023-07-19 02:24] LABS: PARTIAL THROMBOPLASTIN TIME 173.2 SECONDS (24.8-34.2)
[2023-07-19 06:23] VITALS: BP 146/80; TEMP 97.2; O2SAT 95
[2023-07-19] MEDS ORDERED: INSULIN LISPRO (NovoLOG) PER UNIT SC SCH (07:30)
[2023-07-19] MEDS ORDERED: ASPIRIN 81MG CHEW TABLET PO SCH (09:00)
== END 2023-07-19 06:38 | disposition short-term general hospital (02) ==
LOC: M ED 15:00
DX: I20.0 Unstable angina (principal); K21.9 Gastro-esophageal reflux disease without esophagitis; G47.33 Obstructive sleep apnea (adult) (pediatric); Z87.891 Personal history of nicotine dependence; Z88.8 Allergy status to other drugs, medicaments and biological substances; Z79.1 Long term (current) use of non-steroidal anti-inflammatories (NSAID); Z79.2 Long term (current) use of antibiotics; Z79.899 Other long term (current) drug therapy
CPT/HCPCS: 71045; 71275; 80048; 82550; 82553; 85014; 85018; 85025; 85610; 85730; 93005; 93041; 94760; 96374; 96375; 99285; C9113; Q9967

== ENCOUNTER → 2023-07-25 | Outpatient (CLI) | payer OTHER ==
[~2023-07-25] MED LIST changes: +ASPI81CH48 PO; +BACL10TA2 PO; +HYDR200T46 PO; +LEVO150T7 PO; +LEXA5TAB13 PO; +MOME220A INH; +NORT25CA2 PO; +POTA10CA60 PO; +PRED5TA PO; +ROSU20TA61 PO; +SEMA1PEN2 SQ; +SULF500T41 PO
[2023-07-25 18:57] LABS: BASO # 0.1 10^3/uL (0.0-0.2); BASO % 1.8 % (0.0-1.0); EOS # 0.2 10^3/uL (0.0-0.5); EOS % 2.7 % (0.0-3.0); HEMATOCRIT 40.2 % (36.0-47.0); HEMOGLOBIN 13.1 g/dl (12.0-15.5); LYMPH # 2.2 10^3/uL (1.5-5.0); LYMPH % 30.1 % (24.0-44.0); MEAN CORPUSCULAR HEMOGLOBIN 28.7 pg (27.0-33.0); MEAN CORPUSCULAR HGB CONC 32.6 g/dl (32.0-36.5); MEAN CORPUSCULAR VOLUME 88.2 fl (80.0-96.0); MONO # 0.9 10^3/uL (0.0-0.8); MONO % 11.9 % (2.0-8.0); NEUTROPHILS # 3.9 10^3/uL (1.5-8.5); NEUTROPHILS % 53.4 % (36.0-66.0); PLATELET COUNT, AUTOMATED 326 10^3/uL (150-450); RED BLOOD COUNT 4.56 10^6/uL (4.00-5.40); WHITE BLOOD COUNT 7.3 10^3/uL (4.0-10.0)
[2023-07-25 19:20] LABS: ALBUMIN 3.6 G/DL (3.2-5.2); ALKALINE PHOSPHATASE 96 U/L (46-116); ALT/SGPT 43 U/L (7.0-40); AST/SGOT 35 U/L (<34); BILIRUBIN,TOTAL 0.5 MG/DL (0.3-1.2); BLOOD UREA NITROGEN 13 MG/DL (9-23); CALCIUM LEVEL 9.3 MG/DL (8.3-10.6); CARBON DIOXIDE LEVEL 31 MMOL/L (20-31); CHLORIDE LEVEL 102 MMOL/L (98-107); CHOLESTEROL LEVEL 133 MG/DL (<200); CHOLESTEROL RISK RATIO 3.03 (<5); CPK CREATINE PHOSPHOKINASE 114 U/L (34-145); CREATININE FOR GFR 0.89 MG/DL (0.55-1.30); GLOMERULAR FILTRATION RATE > 60.0 (>45); GLUCOSE, FASTING 97 MG/DL (74-106); HDL CHOLESTEROL 43.8 MG/DL (>40); LDL CHOLESTEROL 56.4 MG/DL (<100); NON-HDL-C 89.2 MG/DL; POTASSIUM SERUM 3.8 MMOL/L (3.5-5.1); SODIUM LEVEL 140 MMOL/L (136-145); TOTAL PROTEIN 7.1 G/DL (5.7-8.2); TRIGLYCERIDES LEVEL 164 MG/DL (<150)
[2023-07-25 19:21] LABS: FERRITIN 72.2 NG/ML (7.3-270.7); THYROID STIMULATING HORMONE 6.607 uIU/ML (0.55-4.78)
[2023-07-25 19:22] LABS: FREE T4 1.36 NG/DL (0.89-1.76)
[2023-07-25 19:25] LABS: ERYTHROCYTE SEDIMENTATION RATE 88 mm/hr (0-30)
== END ==
LOC: M PLALAB 15:46
PROVIDERS: ATTEND Family Medicine
DX: I25.10 Atherosclerotic heart disease of native coronary artery without angina pectoris (principal); D50.9 Iron deficiency anemia, unspecified; E03.9 Hypothyroidism, unspecified; M35.9 Systemic involvement of connective tissue, unspecified

== ENCOUNTER → 2023-07-25 | Outpatient (CLI) | payer OTHER | LOC: M WHC 15:07 | PROVIDERS: ATTEND Family Medicine | DX: Z12.31 Encounter for screening mammogram for malignant neoplasm of breast (principal); Z53.9 Procedure and treatment not carried out, unspecified reason ==

== ENCOUNTER → 2023-09-23 | Outpatient (CLI) | payer OTHER ==
[~2023-09-23] MED LIST changes: -POTA10CA60 PO; +POTA10CA70 PO
[2023-09-23 18:02] LABS: BASO # 0.1 10^3/uL (0.0-0.2); BASO % 1.5 % (0.0-1.0); EOS # 0.1 10^3/uL (0.0-0.5); EOS % 2.1 % (0.0-3.0); HEMATOCRIT 38.5 % (36.0-47.0); HEMOGLOBIN 12.4 g/dl (12.0-15.5); LYMPH % 33.6 % (24.0-44.0); MEAN CORPUSCULAR HEMOGLOBIN 28.1 pg (27.0-33.0); MEAN CORPUSCULAR HGB CONC 32.2 g/dl (32.0-36.5); MEAN CORPUSCULAR VOLUME 87.1 fl (80.0-96.0); MONO # 0.6 10^3/uL (0.0-0.8); MONO % 9.6 % (2.0-8.0); NEUTROPHILS # 3.1 10^3/uL (1.5-8.5); NEUTROPHILS % 52.9 % (36.0-66.0); PLATELET COUNT, AUTOMATED 338 10^3/uL (150-450); RED BLOOD COUNT 4.42 10^6/uL (4.00-5.40); WHITE BLOOD COUNT 5.8 10^3/uL (4.0-10.0)
[2023-09-23 18:09] LABS: ERYTHROCYTE SEDIMENTATION RATE 73 mm/hr (0-30)
[2023-09-23 18:16] LABS: HEMOGLOBIN A1c 5.8 % (4.0-6.0)
[2023-09-23 18:43] LABS: ALBUMIN 3.6 G/DL (3.2-5.2); ALKALINE PHOSPHATASE 110 U/L (46-116); ALT/SGPT 37 U/L (7.0-40); AST/SGOT 42 U/L (<34); BILIRUBIN,TOTAL 0.5 MG/DL (0.3-1.2); BLOOD UREA NITROGEN 10 MG/DL (9-23); CALCIUM LEVEL 9.6 MG/DL (8.3-10.6); CARBON DIOXIDE LEVEL 30 MMOL/L (20-31); CHLORIDE LEVEL 104 MMOL/L (98-107); CREATININE FOR GFR 0.81 MG/DL (0.55-1.30); GLOMERULAR FILTRATION RATE > 60.0 (>45); GLUCOSE, FASTING 97 MG/DL (74-106); POTASSIUM SERUM 3.9 MMOL/L (3.5-5.1); SODIUM LEVEL 141 MMOL/L (136-145); TOTAL PROTEIN 7.1 G/DL (5.7-8.2)
[2023-09-23 18:44] LABS: FERRITIN 47.9 NG/ML (7.3-270.7)
== END ==
LOC: M WUC 13:50
PROVIDERS: ATTEND Family Medicine
DX: I11.0 Hypertensive heart disease with heart failure (principal); E03.9 Hypothyroidism, unspecified; E11.9 Type 2 diabetes mellitus without complications; I50.32 Chronic diastolic (congestive) heart failure; I25.10 Atherosclerotic heart disease of native coronary artery without angina pectoris

== ENCOUNTER → 2023-10-03 | Outpatient (CLI) | payer OTHER, SELFPAY | LOC: M RAD 09:54 | PROVIDERS: ATTEND Family Medicine | DX: M35.9 Systemic involvement of connective tissue, unspecified (principal) ==

== ENCOUNTER → 2023-11-09 | Outpatient (CLI) | payer OTHER | LOC: M RAD 08:36 | PROVIDERS: ATTEND Family Medicine | DX: K74.00 Hepatic fibrosis, unspecified (principal); K76.0 Fatty (change of) liver, not elsewhere classified; R16.0 Hepatomegaly, not elsewhere classified; Z90.89 Acquired absence of other organs ==

== ENCOUNTER → 2023-12-08 | Outpatient (CLI) | payer OTHER ==
[2023-12-08 12:32] LABS: BASO # 0.1 10^3/uL (0.0-0.2); BASO % 1.6 % (0.0-1.0); EOS # 0.2 10^3/uL (0.0-0.5); EOS % 3.7 % (0.0-3.0); HEMATOCRIT 38.4 % (36.0-47.0); HEMOGLOBIN 12.2 g/dl (12.0-15.5); LYMPH # 1.8 10^3/uL (1.5-5.0); LYMPH % 28.8 % (24.0-44.0); MEAN CORPUSCULAR HEMOGLOBIN 27.4 pg (27.0-33.0); MEAN CORPUSCULAR HGB CONC 31.8 g/dl (32.0-36.5); MEAN CORPUSCULAR VOLUME 86.1 fl (80.0-96.0); MONO # 0.6 10^3/uL (0.0-0.8); MONO % 9.4 % (2.0-8.0); NEUTROPHILS # 3.5 10^3/uL (1.5-8.5); NEUTROPHILS % 56.3 % (36.0-66.0); PLATELET COUNT, AUTOMATED 274 10^3/uL (150-450); RED BLOOD COUNT 4.46 10^6/uL (4.00-5.40); WHITE BLOOD COUNT 6.2 10^3/uL (4.0-10.0)
[2023-12-08 12:45] LABS: ERYTHROCYTE SEDIMENTATION RATE 45 mm/hr (0-30); INR 1.15; PARTIAL THROMBOPLASTIN TIME 27.9 SECONDS (24.8-34.2); PROTHROMBIN TIME 14.4 SECONDS (12.5-14.5)
[2023-12-08 13:03] LABS: C REACTIVE PROTEIN QUANTITATIV < 0.40 MG/DL (<1.0)
[2023-12-08 13:05] LABS: ALBUMIN 3.5 G/DL (3.2-5.2); ALKALINE PHOSPHATASE 106 U/L (46-116); ALT/SGPT 36 U/L (7.0-40); AST/SGOT 30 U/L (<34); BILIRUBIN,TOTAL 0.5 MG/DL (0.3-1.2); BLOOD UREA NITROGEN 13 MG/DL (9-23); CARBON DIOXIDE LEVEL 30 MMOL/L (20-31); CHLORIDE LEVEL 107 MMOL/L (98-107); CHOLESTEROL LEVEL 128 MG/DL (<200); CREATININE FOR GFR 0.72 MG/DL (0.55-1.30); GLOMERULAR FILTRATION RATE > 60.0 (>45); GLUCOSE, FASTING 102 MG/DL (74-106); LDL CHOLESTEROL 48.2 MG/DL (<100); POTASSIUM SERUM 4.2 MMOL/L (3.5-5.1); PTH INTACT 125.2 PG/ML (18.5-88.0); SODIUM LEVEL 143 MMOL/L (136-145); TOTAL PROTEIN 6.9 G/DL (5.7-8.2); TRIGLYCERIDES LEVEL 199 MG/DL (<150)
[2023-12-08 13:06] LABS: FERRITIN 32.9 NG/ML (7.3-270.7); FREE T4 1.08 NG/DL (0.89-1.76); THYROID STIMULATING HORMONE 2.557 uIU/ML (0.55-4.78)
[2023-12-13 00:17] LABS: G6PD ADULT 14.2 U/g Hgb (7.0-20.5)
== END ==
LOC: M WUC 10:47
PROVIDERS: ATTEND Family Medicine
DX: E78.5 Hyperlipidemia, unspecified (principal); D50.9 Iron deficiency anemia, unspecified; E55.9 Vitamin D deficiency, unspecified; M35.9 Systemic involvement of connective tissue, unspecified; K74.00 Hepatic fibrosis, unspecified; E03.9 Hypothyroidism, unspecified

== ENCOUNTER → 2023-12-20 | Outpatient (REF) | payer OTHER | LOC: M SFHCPLAZ 15:35 | PROVIDERS: ATTEND Family Medicine | DX: E03.9 Hypothyroidism, unspecified (principal); D50.9 Iron deficiency anemia, unspecified; E78.5 Hyperlipidemia, unspecified; E55.9 Vitamin D deficiency, unspecified; K74.00 Hepatic fibrosis, unspecified ==

== ENCOUNTER 2024-01-12 08:13 | Outpatient (CLI) | payer OTHER ==
[~2024-01-12] VITALS: Ht 162.6 cm; Wt 120.0 kg
[~2024-01-12 08:13] MED LIST changes: +ALBUTEROL SULFATE 2.5MG/0.5ML INH NEB SOLN INH PRN; +EPINEPHrine INJ 1 MG/ML 1ML AMP IM PRN; +NS 1,000 ML IV SCH; +diphenhydrAMINE 50MG/ML VIAL IV PRN; +methylPREDNISolone 125MG 2ML VIAL IV PRN
[2024-01-12 08:15] VITALS: BP 138/68; O2SAT 96
[2024-01-12] MEDS: IRON SUCROSE 500 MG in NS 250 ML OVER 4 HRS IV ONE (09:19)
[2024-01-12 10:30] VITALS: BP 138/61; O2SAT 97
[2024-01-12 11:30] VITALS: BP 133/69; O2SAT 97
[2024-01-12 12:30] VITALS: BP 139/68; O2SAT 96
[2024-01-12 13:30] VITALS: BP 146/67; O2SAT 97
== END 2024-01-12 13:45 ==
LOC: M INFU 08:13
PROVIDERS: ATTEND Family Medicine
DX: D50.9 Iron deficiency anemia, unspecified (principal); Z88.5 Allergy status to narcotic agent; Z88.8 Allergy status to other drugs, medicaments and biological substances
CPT/HCPCS: 96365; 96366; J1756

== ENCOUNTER 2024-02-29 10:44 | Outpatient (RCR) | payer OTHER ==
[~2024-02-29 10:44] MED LIST changes: -ALBUTEROL SULFATE 2.5MG/0.5ML INH NEB SOLN INH PRN; -EPINEPHrine INJ 1 MG/ML 1ML AMP IM PRN; -NS 1,000 ML IV SCH; -ROSU20TA61 PO; +ROSU20TA86 PO; -diphenhydrAMINE 50MG/ML VIAL IV PRN; -methylPREDNISolone 125MG 2ML VIAL IV PRN
== END 2024-03-01 ==
LOC: M PT 10:44
PROVIDERS: ATTEND Family Medicine
DX: M47.812 Spondylosis without myelopathy or radiculopathy, cervical region (principal)

== ENCOUNTER 2024-03-20 09:56 | Outpatient (RCR) | payer OTHER | END 2024-03-31 | LOC: M PT 09:56 | PROVIDERS: ATTEND Family Medicine | DX: M47.812 Spondylosis without myelopathy or radiculopathy, cervical region (principal) ==

== ENCOUNTER → 2024-03-20 | Outpatient (CLI) | payer OTHER ==
[2024-03-20 17:32] LABS: BASO # 0.1 10^3/uL (0.0-0.2); BASO % 1.3 % (0.0-1.0); EOS # 0.1 10^3/uL (0.0-0.5); EOS % 2.5 % (0.0-3.0); HEMATOCRIT 38.3 % (36.0-47.0); HEMOGLOBIN 12.2 g/dl (12.0-15.5); LYMPH # 1.7 10^3/uL (1.5-5.0); LYMPH % 29.9 % (24.0-44.0); MEAN CORPUSCULAR HEMOGLOBIN 28.4 pg (27.0-33.0); MEAN CORPUSCULAR HGB CONC 31.9 g/dl (32.0-36.5); MEAN CORPUSCULAR VOLUME 89.3 fl (80.0-96.0); MONO # 0.5 10^3/uL (0.0-0.8); MONO % 9.4 % (2.0-8.0); NEUTROPHILS # 3.2 10^3/uL (1.5-8.5); NEUTROPHILS % 56.7 % (36.0-66.0); PLATELET COUNT, AUTOMATED 257 10^3/uL (150-450); RED BLOOD COUNT 4.29 10^6/uL (4.00-5.40); WHITE BLOOD COUNT 5.6 10^3/uL (4.0-10.0)
[2024-03-20 17:44] LABS: ERYTHROCYTE SEDIMENTATION RATE 43 mm/hr (0-30)
[2024-03-20 18:05] LABS: ALBUMIN 3.5 G/DL (3.2-5.2); ALKALINE PHOSPHATASE 104 U/L (35-104); ALT/SGPT 36 U/L (7.0-40); AST/SGOT 27 U/L (<34); BILIRUBIN,TOTAL 0.5 MG/DL (0.3-1.2); BLOOD UREA NITROGEN 13 MG/DL (9-23); CALCIUM LEVEL 9.5 MG/DL (8.3-10.6); CARBON DIOXIDE LEVEL 30 MMOL/L (20-31); CHLORIDE LEVEL 108 MMOL/L (98-107); CREATININE FOR GFR 0.79 MG/DL (0.55-1.30); GLOMERULAR FILTRATION RATE > 60.0 (>45); GLUCOSE, FASTING 107 MG/DL (74-106); POTASSIUM SERUM 3.9 MMOL/L (3.5-5.1); PTH INTACT 81.6 PG/ML (18.5-88.0); SODIUM LEVEL 141 MMOL/L (136-145); TOTAL 25(OH) VITAMIN D 81.6 NG/ML (20.0-100.0); TOTAL PROTEIN 7.1 G/DL (5.7-8.2)
[2024-03-20 18:06] LABS: FERRITIN 104.9 NG/ML (7.3-270.7); THYROID STIMULATING HORMONE 5.998 uIU/ML (0.55-4.78)
[2024-03-20 18:07] LABS: FREE T4 1.04 NG/DL (0.89-1.76)
[2024-03-20 18:16] LABS: HEMOGLOBIN A1c 5.6 % (4.0-6.0)
== END ==
LOC: M WUC 11:38
PROVIDERS: ATTEND Family Medicine
DX: D50.9 Iron deficiency anemia, unspecified (principal); E55.9 Vitamin D deficiency, unspecified; E78.5 Hyperlipidemia, unspecified; E03.9 Hypothyroidism, unspecified; K74.00 Hepatic fibrosis, unspecified

== ENCOUNTER → 2024-05-07 | Outpatient (CLI) | payer OTHER | LOC: M PAIN 13:00 | PROVIDERS: ATTEND Nurse Practitioner Family | DX: M96.1 Postlaminectomy syndrome, not elsewhere classified (principal); M54.16 Radiculopathy, lumbar region; M46.1 Sacroiliitis, not elsewhere classified; G89.29 Other chronic pain; M47.812 Spondylosis without myelopathy or radiculopathy, cervical region; E03.9 Hypothyroidism, unspecified; I10 Essential (primary) hypertension; I25.10 Atherosclerotic heart disease of native coronary artery without angina pectoris; E66.9 Obesity, unspecified; E78.2 Mixed hyperlipidemia; E53.8 Deficiency of other specified B group vitamins; M47.816 Spondylosis without myelopathy or radiculopathy, lumbar region; M47.814 Spondylosis without myelopathy or radiculopathy, thoracic region; G47.33 Obstructive sleep apnea (adult) (pediatric); E11.9 Type 2 diabetes mellitus without complications; Z86.711 Personal history of pulmonary embolism; Z79.82 Long term (current) use of aspirin; Z79.899 Other long term (current) drug therapy; Z87.891 Personal history of nicotine dependence; Z88.5 Allergy status to narcotic agent; Z88.8 Allergy status to other drugs, medicaments and biological substances; Z68.41 Body mass index [BMI] 40.0-44.9, adult ==

== ENCOUNTER → 2024-05-24 | Outpatient (CLI) | payer OTHER | LOC: M RAD 14:22 | PROVIDERS: ATTEND Nurse Practitioner Family | DX: M96.1 Postlaminectomy syndrome, not elsewhere classified (principal); M46.1 Sacroiliitis, not elsewhere classified; M54.16 Radiculopathy, lumbar region; Z98.1 Arthrodesis status; M16.0 Bilateral primary osteoarthritis of hip ==

== ENCOUNTER → 2024-06-05 | Outpatient (REF) | payer OTHER | LOC: M SFHCPLAZ 11:14 | PROVIDERS: ATTEND Family Medicine | DX: L82.1 Other seborrheic keratosis (principal) ==

== ENCOUNTER → 2024-11-07 | Outpatient (CLI) | payer OTHER | LOC: M WHC 12:32 | PROVIDERS: ATTEND Family Medicine | DX: Z12.31 Encounter for screening mammogram for malignant neoplasm of breast (principal) ==

== ENCOUNTER → 2024-12-04 | Outpatient (CLI) | payer OTHER ==
[2024-12-04 14:13] LABS: BASO # 0.1 10^3/uL (0.0-0.2); BASO % 1.5 % (0.0-1.0); EOS # 0.2 10^3/uL (0.0-0.5); EOS % 3.7 % (0.0-3.0); LYMPH # 1.5 10^3/uL (1.5-5.0); LYMPH % 37.6 % (24.0-44.0); MONO # 0.5 10^3/uL (0.0-0.8); MONO % 11.5 % (2.0-8.0); NEUTROPHILS # 1.9 10^3/uL (1.5-8.5); NEUTROPHILS % 45.7 % (36.0-66.0); PLATELET COUNT, AUTOMATED 237 10^3/uL (150-450)
[2024-12-04 14:26] LABS: ERYTHROCYTE SEDIMENTATION RATE 44 mm/hr (0-30)
[2024-12-04 14:41] LABS: ESTIMATED AVERAGE GLUCOSE 120.0 MG/DL (60-110)
[2024-12-04 14:49] LABS: FREE T4 0.93 NG/DL (0.89-1.76)
[2024-12-04 14:50] LABS: ALT/SGPT 45 U/L (7.0-40); AST/SGOT 41 U/L (<34); C REACTIVE PROTEIN QUANTITATIV < 0.50 MG/DL (<1.0); CALCIUM LEVEL 9.3 MG/DL (8.3-10.6); CARBON DIOXIDE LEVEL 30 MMOL/L (20-31); CHLORIDE LEVEL 106 MMOL/L (98-107); CHOLESTEROL LEVEL 107 MG/DL (<200); CHOLESTEROL RISK RATIO 2.35 (<5); CREATININE FOR GFR 0.85 MG/DL (0.55-1.30); GLOMERULAR FILTRATION RATE 77.4 (>45); LDL CHOLESTEROL 37.7 MG/DL (<100); MAGNESIUM LEVEL 2.0 MG/DL (1.8-2.4); NON-HDL-C 61.5 MG/DL; POTASSIUM SERUM 4.5 MMOL/L (3.5-5.1); SODIUM LEVEL 146 MMOL/L (136-145); TRIGLYCERIDES LEVEL 119 MG/DL (<150)
[2024-12-04 14:53] LABS: TOTAL 25(OH) VITAMIN D 101.3 NG/ML (20.0-100.0)
[2024-12-04 14:54] LABS: PTH INTACT 53.4 PG/ML (18.5-88.0)
[2024-12-04 15:16] LABS: HIV 1&2 SCREEN NEGATIVE (NEGATIVE)
[2024-12-04 15:23] LABS: HEPATITIS C VIRUS ABY INDEX < 0.02 INDEX (<0.8)
== END ==
LOC: M PLALAB 10:29
PROVIDERS: ATTEND Family Medicine
DX: E03.9 Hypothyroidism, unspecified (principal); D50.9 Iron deficiency anemia, unspecified; E78.5 Hyperlipidemia, unspecified; E55.9 Vitamin D deficiency, unspecified; I50.32 Chronic diastolic (congestive) heart failure; E11.9 Type 2 diabetes mellitus without complications; K74.00 Hepatic fibrosis, unspecified; M35.9 Systemic involvement of connective tissue, unspecified

== ENCOUNTER → 2024-12-13 | Outpatient (CLI) | payer OTHER | LOC: M RAD 15:02 | PROVIDERS: ATTEND Family Medicine | DX: R91.8 Other nonspecific abnormal finding of lung field (principal); T81.89XD Other complications of procedures, not elsewhere classified, subsequent encounter; Z12.2 Encounter for screening for malignant neoplasm of respiratory organs; Z87.891 Personal history of nicotine dependence ==

== ENCOUNTER → 2024-12-25 | Outpatient (CLI) | payer OTHER ==
[~2024-12-25] MED LIST changes: +ISOVUE-370 76% 100 ML VIAL As Ordered ONE
== END ==
LOC: M RAD 07:24
PROVIDERS: ATTEND Physician Assistant Medical
DX: T81.89XD Other complications of procedures, not elsewhere classified, subsequent encounter (principal)
CPT/HCPCS: 70491; Q9967

== ENCOUNTER → 2025-02-26 | Outpatient (REF) | payer OTHER ==
[~2025-02-26] MED LIST changes: -ISOVUE-370 76% 100 ML VIAL As Ordered ONE
== END ==
LOC: M SFHCPLAZ 11:29
PROVIDERS: ATTEND Family Medicine
DX: L98.4 Non-pressure chronic ulcer of skin, not elsewhere classified (principal)